=== PATIENT | female | born 1935 | race Caucasian/White ===

== ENCOUNTER → 2020-04-08 09:59 | Outpatient (CLI) | payer MEDICARE, SELFPAY ==
--- NOTE | ~2020-04-08 | MM_ITS ---
EXAMINATION: MM screening vianca BI w davonte HISTORY: Screening mammogram, history of right breast cancer TECHNIQUE: Craniocaudal and mediolateral oblique 3-D tomosynthesis images were obtained and synthetic 2-D images were generated. CAD analysis was submitted and interpreted. COMPARISON: 04/07/2019, 04/05/2018, 04/02/2017 BREAST PARENCHYMAL COMPOSITION: The breasts are almost entirely fatty. FINDINGS: There are stable lumpectomy changes in the right breast. There is no evidence of suspicious mass, calcification, or architectural distortion to suggest malignancy in either breast. There has b een no suspicious interval change. IMPRESSION: 1. No mammographic evidence of malignancy. 2. Recommend routine screening mammography while the patient remains in good health. BI-RADS Category 2: Benign finding(s). Reviewed, dictated and finalized at location A. IMPRESSION: 1. No mammographic evidence of malignancy. 2. Recommend routine screening mammography while the patient remains in good he alth. BI-RADS Category 2: Benign finding(s).
== END ==
PROVIDERS: PCP Family Medicine; Visit Provider Internal Medicine Hematology & Oncology
DX: Z12.31 Encounter for screening mammogram for malignant neoplasm of breast (principal)
CPT/HCPCS: 77063; 77067

== ENCOUNTER 2020-11-08 09:05 | Emergency (ER) | payer MEDICARE, SELFPAY ==
[2020-11-08] VITALS (10 sets, daily range): BP systolic 139; BP diastolic 90–106; PULSE 57–72; RESP 9–19; O2SAT 94–99
--- NOTE | ~2020-11-08 | CT_ITS ---
EXAMINATION: CT brain wo con DATE: 11/08/2020 10:12 INDICATION: Syncope, dizziness, left frontal scalp hematoma and posterior scalp laceration post fall with head injury. TECHNIQUE: Computed tomography (CT) of the head was performed without intravenous contrast. Sagittal and coronal reconstructions were performed. The mA was adjusted according to patient size. Iterative reconstruction technique was employed. The dose-length product was 605.33 mGy-cm. COMPARISON: Brain MR dated 09/11/2014 FINDINGS: Prominent scalp hematomas in the left frontal region as well as in the right parietal region, the lat ter with associated scalp laceration. No fracture. No acute intracranial hemorrhage, acute infarction or abnormal extra axial fluid collection. Symmetric prominence of the sulci and ventricles consisten t with moderate age-appropriate diffuse cerebral volume loss. No mass/mass effect. Changes of bilater al intraocular lens replacement. The orbits, paranasal sinuses and mastoid air cells are normal. Intr acranial calcified cerebral atherosclerosis is noted. IMPRESSION: 1. Left frontal and right parietal scalp hematomas with right parietal scalp laceration. No fracture or acute intracranial process. 2. Age-related changes including moderate diffuse volume loss with mild scattered white matter hypoat tenuation consistent with chronic small vessel ischemic disease. Reviewed, dictated and finalized at location A. IMPRESSION: 1. Left frontal and right parietal scalp hematomas with right parietal scalp la ceration. No fracture or acute intracranial process. 2. Age-related changes including moderate diffuse volume loss with mild scatter ed white matter hypoattenuation consistent with chronic small vessel ischemic d isease.
--- NOTE | ~2020-11-08 | CT_ITS ---
EXAMINATION: CT cervical spine wo con DATE: 11/08/2020 10:13 INDICATION: Head injury. TECHNIQUE: Computed tomography (CT) of the cervical spine was performed without intravenous contrast. Automated exposure control and iterative reconstruction technique were employed. The dose-length pro duct was 98.77 mGy-cm. COMPARISON: None FINDINGS: There is 7 degrees dextrocurvature of cervical spine. Vertebral body heights are normal. Th ere is mildly decreased disc height at C5-C6. The following disc levels are specifically discussed: C2-C3: There is no uncovertebral joint osteoarthritis. There is severe right and moderate left facet joint osteoarthritis. There is no neural foraminal stenosis. There is no central canal stenosis. C3-C4: There is no uncovertebral joint osteoarthritis. There is mild right and severe left facet join t osteoarthritis. There is no neural foraminal stenosis. There is no central canal stenosis. C4-C5: There is mild left uncovertebral joint osteoarthritis. There is moderate and mild left facet j oint osteoarthritis. There is no neural foraminal stenosis. There is no central canal stenosis. C5-C6: There is mild bilateral uncovertebral joint osteoarthritis. There is mild bilateral facet join t osteoarthritis. There is no neural foraminal stenosis. There is no central canal stenosis. C6-C7: There is no uncovertebral joint osteoarthritis. There is mild bilateral facet joint osteoarthr itis. There is no neural foraminal stenosis. There is no central canal stenosis. C7-T1: There is no uncovertebral joint osteoarthritis. There is mild right and moderate left facet parker int osteoarthritis. There is no neural foraminal stenosis. There is no central canal stenosis. IMPRESSION: 1. No fracture. 2. Mild cervical spondylosis. Reviewed, dictated and finalized at location A.
--- NOTE | ~2020-11-08 | XR_ITS ---
EXAMINATION: XR ankle LT min 3V DATE: 11/08/2020 11:14 INDICATION: Postreduction left ankle fracture TECHNIQUE: Anteroposterior, oblique, mortise, and lateral views of the affected ankle were obtained. COMPARISON: None. FINDINGS: Interval reduction to near anatomic alignment of the previous noted distal metadiaphyseal fracture of the left fibula and oblique intra-articular fracture of the distal left tibia. Suggestion of a coupl e millimeter residual step-off along the articular cortex of the tibial plafond. There is widening of the anterior tibiotalar joint space. No other fractures identified. Remaining profile joint spaces a ppear relatively preserved. Moderate-sized Achilles and plantar calcaneal spurs. Fiberglas splinting material extending from the posterior lower leg across the heel and along the plantar aspect of the f oot. IMPRESSION: 1. Reduction to near-anatomic alignment of distal left tibial and fibular fractures Reviewed, dictated and finalized at location A. IMPRESSION: 1. Reduction to near-anatomic alignment of distal left tibial and fibular fract ures
--- NOTE | ~2020-11-08 | XR_ITS ---
EXAMINATION: XR ankle LT min 3V DATE: 11/08/2020 10:15 INDICATION: Left ankle pain. Fall. TECHNIQUE: 3 views of left ankle were obtained. COMPARISON: None. FINDINGS: There is a transverse fracture of distal fibula 17 mm proximal to the level of the tibial c omponent. The distal fracture fragment demonstrates 47 degrees medial angulation. There is a comminut ed fracture of distal tibia involving the tibial plafond. The main distal fracture fragment demonstra angelito 30 degrees medial angulation and shortening. Other joint spaces are normal. There are enthesophyt es at the posterior and plantar aspects of calcaneal tuberosity. IMPRESSION: 1. Fractures of distal tibia and fibula. Reviewed, dictated and finalized at location A.
--- NOTE | 2020-11-08 09:15 | ECG_ITS ---
Measurements Intervals [place] Rate: 64 P: 17 [place]: 261 QRS: 26 QRSD: 90 T: 18 QT: 416 QTc: 432 Interpretive Statements SINUS RHYTHM WITH FIRST DEGREE AV BLOCK BASELINE ARTIFACT- I, II, III, AVR, AVF, V2-V6 ABNORMAL ECG Electronically Signed On 11-08-2020 10:35:39 CDT by Duc Joaquin D.O.
[2020-11-08] MEDS: MORPHINE SULFATE (*CRX) 4 MG/ML INJ IV PUSH (09:36)
[2020-11-08 09:55] LABS: Basophils Absolute Auto 0.1 K/mm3 (0.0-0.1); Basophils Percent Auto 0.5 % (0.2-1.2); Eosinophils Absolute Auto 0.3 K/mm3 (0-0.3); Eosinophils Percent Auto 2.5 % (0-4.4); Hematocrit 27.2 % (37.0-47.0); Hemoglobin 8.6 g/dL (12.0-15.0); Immature Granulocyte Absolute 0.04 K/mm3 (0.00-0.031); Immature Granulocyte Percent A 0.3 % (0-0.5); Lymphocytes Absolute Auto 2.25 K/mm3 (0.9-3.2); Lymphocytes Percent Auto 19.1 % (18.3-44.2); Mean Corpuscular HGB Conc 31.6 g/dl (32-36); Mean Corpuscular Hemoglobin 27.4 pg (26-34); Mean Corpuscular Volume 86.6 fl (80-100); Mean Platelet Volume 11.5 fl (7.4-10.4); Monocytes Absolute Auto 0.7 K/mm3 (0.1-0.6); Monocytes Percent Auto 5.7 % (2.6-8.5); Neutrophils Absolute Auto 8.5 K/mm3 (1.3-6.7); Neutrophils Percent Auto 71.9 % (45.5-73.1); Platelet Count Result 221 k/mm3 (150-375); Red Blood Count 3.14 M/mm3 (4.2-5.4); Red Cell Distribution Width 19.9 % (11.5-14.5); White Blood Count 11.8 K/mm3 (4.5-10.0)
--- NOTE | 2020-11-08 09:57 | ED.FALL ---
HPI - Fall General Chief Complaint: Fall Stated Complaint: FALL/SYNCOPE/L ANKLE INJURY Time Seen by Provider: 11/08/20 09:57 Source: patient, EMS and RN notes reviewed Mode of arrival: EMS Limitations: no limitations History of Present Illness HPI Narrative: Patient is 84 years old white female lives alone, was going downstairs, lost her balance or and fell, unknown number of steps. No loss of consciousness. Complaining of severe pain left ankle. Patient denies other injuries. History of breast cancer stage I, patient on aspirin. Been vaccinated for COVID-19. Denies any fever, chills, nausea, vomiting, chest pain, shortness of breath, back pain or abdominal pain. Related Data Home Medications Medication Instructions Recorded Confirmed aspirin 81 mg tablet,delayed 81 mg PO DAILY 05/31/19 10/25/20 release ferrous sulfate 325 mg (65 mg 325 mg PO DAILY 05/31/19 10/25/20 iron) tablet furosemide 20 mg tablet 20 mg PO EVERY OTHER DAY 05/31/19 10/25/20 gabapentin 300 mg capsule 300 mg PO DAILY 05/31/19 10/25/20 insulin NPH-regular 70-30 U-100 20 unit SUB-Q BID 05/31/19 10/25/20 insulin 100 unit/mL subcutaneous pen insulin lispro 100 unit/mL 1 unit SUB-Q ONCE 05/31/19 10/25/20 subcutaneous pen multivitamin 1 tablet PO DAILY 05/31/19 10/25/20 potassium chloride 10 mEq 10 meq PO EVERY OTHER DAY 05/31/19 10/25/20 tablet,extended release pravastatin 40 mg tablet 40 mg PO DAILY 05/31/19 10/25/20 verapamil 120 mg tablet,extended 120 mg PO DAILY 05/31/19 10/25/20 release metoprolol succinate 25 mg PO DAILY 07/05/20 10/25/20 Allergies Allergy/AdvReac Type Severity Reaction Status Date / Time No Known Allergies Allergy Verified 10/25/20 09:21 Review of Systems Review of Systems: Narrative: CONSTITUTIONAL: Denies fever, chills, or sweats. EYES: Denies visual changes, redness, or discharge. ENT: Denies rhinorrhea, congestion, sore throat, or otalgia. CARDIOVASCULAR: Denies chest pain, palpitations, or edema. RESPIRATORY: Denies cough or dyspnea. GASTROINTESTINAL: Denies abdominal pain, nausea, vomiting, or diarrhea. GENITOURINARY: Denies dysuria or hematuria. SKIN: Denies rash or itching. MUSCULOSKELETAL: Denies back pain, joint pain, or myalgia. NEUROLOGIC: Denies headache, numbness, or weakness. PSYCHIATRIC: Denies anxiety or depression. PMFSH Past Medical History Medical History Anemia Chronic emphysema syndrome Essential (primary) hypertension Hx of breast cancer Hypokalemia DAVID (obstructive sleep apnea) Osteopenia PAD (peripheral artery disease) Renovascular hypertension Surgical History Surgical History History of carotid endarterectomy Family History Family History Mother Family history of diabetes mellitus in first degree relative Family history of malignant neoplasm of uterus, Onset Age: 48 Hypertension, Onset Age: 92 Family history of malignant neoplasm of ovary Diabetes mellitus, Onset Age: 92 Family history of cardiovascular disease, Onset Age: 92 Father Family history of heart disease in male family member before age 55 Hypertension, Onset Age: 75 Family history of cardiovascular disease, Onset Age: 75 Sibling Diabetes mellitus Other Family history of malignant neoplasm of male breast Social History Social History Smoking status: Never smoker Alcohol intake: never Gender identity (if verbalized by the patient): Female Spiritual care concerns: No Exam Narrative: Exam Narrative: General appearance: Well-developed, well-nourished Skin: Normal color Head: Left forehead hematoma, right parietal hematoma and abrasion, no clear laceration, Eyes: Clear conjunctiva ENT: Oropharynx normal, ears normal, nose normal Neck: Supple, nontender
[2020-11-08] MEDS: ONDANSETRON INJ 4 MG/2 ML VIAL (09:58)
[2020-11-08 10:05] LABS: Partial Thromboplastin Time 21.7 SECONDS (22.3-36.8)
--- NOTE | 2020-11-08 10:30 | PC.NURSE ---
Verbal orders received from Dr. Caban to discontinue C-Collar.
[2020-11-08 10:37] LABS: Add Urine Microscopic? NO; Appearance Urine Clear (Clear); Bilirubin Urine Negative (Negative); Blood Urine Negative (Negative); Color Urine Straw (Yellow); Glucose Urine UA Negative (Negative); Ketones Urine Negative (Negative); Leukocyte Esterase Ur Negative LEU/UL (Negative); Nitrate Urine Negative (Negative); Protein Urine Negative (Negative); Urobilinogen Urine Negative mg/dL (<2.0)
[2020-11-08 11:12] LABS: Alanine Aminotransferase 13 U/L (4-35); Albumin Level 3.3 g/dL (3.5-5.1); Alkaline Phosphatase 48 U/L (38-126); Anion Gap 6 mmol/L (8-16); Aspartate Amino Transferase 36 U/L (14-36); Bilirubin,Total 0.7 mg/dL (0.2-1.3); Blood Urea Nitrogen 31 mg/dL (7-17); Carbon Dioxide 26 mmol/L (22-30); Chloride 110 mmol/L (98-107); Estimated CRCL calculation 25 ml/min; Estimated Glomerular Filt Rate 29; Glucose 165 mg/dL (65-105); Potassium 4.5 mmol/L (3.4-5.0); Sodium 142 mmol/L (137-145)
[2020-11-08] MEDS: TETANUS,DIPHTHERIA,AC PERTUSSIS ADULT (0.5 ML) BOOSTRIX IM (11:37)
== END 2020-11-08 12:35 | disposition short-term general hospital (02) ==
PROVIDERS: Emergency Provider Emergency Medicine; PCP Family Medicine
DX: S82.872A Displaced pilon fracture of left tibia, initial encounter for closed fracture (principal); S82.832A Other fracture of upper and lower end of left fibula, initial encounter for closed fracture; S00.03XA Contusion of scalp, initial encounter; S01.01XA Laceration without foreign body of scalp, initial encounter; Z23 Encounter for immunization; J43.9 Emphysema, unspecified; I10 Essential (primary) hypertension; G47.33 Obstructive sleep apnea (adult) (pediatric); M85.80 Other specified disorders of bone density and structure, unspecified site; I73.9 Peripheral vascular disease, unspecified; Z85.3 Personal history of malignant neoplasm of breast; Z79.82 Long term (current) use of aspirin; Z79.4 Long term (current) use of insulin; M47.812 Spondylosis without myelopathy or radiculopathy, cervical region; I44.0 Atrioventricular block, first degree; W10.9XXA Fall (on) (from) unspecified stairs and steps, initial encounter
CPT/HCPCS: 27788; 27825; 29515; 36415; 70450; 72125; 73610; 80053; 81003; 85025; 85730; 90471; 90715; 93005; 96374; 96375; 99285; J2270; J2405

== ENCOUNTER 2020-12-02 07:27 | Emergency (ER) | payer MEDICARE, SELFPAY ==
[2020-12-02] VITALS (17 sets, daily range): BP systolic 146–194; BP diastolic 51–128; PULSE 77–96; RESP 20–26; O2SAT 91–100
--- NOTE | ~2020-12-02 | CT_ITS ---
EXAMINATION: CT brain wo con DATE: 12/02/2020 07:34 INDICATION: Found unresponsive TECHNIQUE: Computed tomography (CT) of the head was performed without intravenous contrast. Sagittal and coronal reconstructions were performed. The mA was adjusted according to patient size. Iterative reconstruction technique was employed. The dose-length product was 681.00 mGy-cm. COMPARISON: head CT dated 11/08/2020 FINDINGS: No acute intracranial hemorrhage, acute infarction or abnormal extra axial fluid collection. There is mild scattered white matter hypoattenuation consistent with chronic small vessel ischemic disease. S ymmetric prominence of the sulci and ventricles consistent with moderate age-appropriate diffuse cere bral volume loss. No mass/mass effect. The orbits, paranasal sinuses and mastoid air cells are normal . IMPRESSION: 1. No acute intracranial process. 2. Stable appearance of age-related changes including moderate diffuse volume loss and mild scattered white matter hypoattenuation consistent with chronic small vessel ischemic disease. Reviewed, dictated and finalized at location A. IMPRESSION: 1. No acute intracranial process. 2. Stable appearance of age-related changes including moderate diffuse volume l oss and mild scattered white matter hypoattenuation consistent with chronic sma ll vessel ischemic disease.
--- NOTE | ~2020-12-02 | XR_ITS ---
EXAMINATION: XR chest 1V portable INDICATION: Altered mental status TECHNIQUE: Portable AP chest at 0754 hours COMPARISON: 09/12/2015 FINDINGS: The lungs are free of acute opacities. There is no pleural effusion or pneumothorax. The ca rdiomediastinal silhouette is normal. IMPRESSION: 1. No acute cardiopulmonary abnormality. Reviewed, dictated and finalized at location A.
--- NOTE | ~2020-12-02 | CT_ITS ---
EXAMINATION: CTA BRAIN/CAROTID DATE: 12/02/2020 08:04 INDICATION: Stroke, found unresponsive with right-sided hemiparesis. TECHNIQUE: Computed tomographic angiography (CTA) of the head and neck was performed with 100 mL Omni paque-350 intravenous contrast. Multiplanar reconstructions and maximum intensity projection 3D-recon structions of the carotid arteries and of the intracranial arteries were created by the technologist on a separate workstation. Automated exposure control and iterative reconstruction technique were emp loyed.The dose-length product was 996.91 mGy-cm. COMPARISON: Head CT dated 12/02/2020, brain MRI and MRA dated 09/11/2014 FINDINGS: Carotid arteries: There is 50% stenosis of the right carotid bulb relative to normal distal artery lumen diameter (NASC ET criteria). There is 0% stenosis of the left carotid bulb relative to normal distal artery lumen di ameter. Mild dependent atelectasis in the bilateral upper lobes and superior segment of the left lowe r lobe. Cervical soft tissues are unremarkable. Exaggerated cervical lordosis. Intracranial arteries 60% stenosis in the supraclinoid left intracranial internal carotid artery. 40% stenosis in the supra clinoid right intracranial internal carotid artery. There is no hemodynamically significant stenosis in the vertebral or basilar arteries. Vertebral arteries are codominant. There are no aneurysms ident ified. Both A1 and the right P1 segments are patent. The right posterior cerebral artery is supplied via the left internal carotid artery and a patent left posterior communicating artery. Cerebral manish rial arborization appears symmetric. Age-related changes including bleeding during moderate diffuse v olume loss and mild scattered white matter hypoattenuation consistent with chronic small vessel ische sofie disease. No evident acute infarction or abnormal enhancing brain lesions. Changes of bilateral in traocular lens replacement. IMPRESSION: 1. 50% stenosis of the right carotid bulb relative to normal distal artery lumen diameter (NASCET cri teria). 2. 0% stenosis of the left carotid bulb relative to normal distal artery lumen diameter. 3. 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 Reviewed, dictated and finalized at location A. IMPRESSION: 1. 50% stenosis of the right carotid bulb relative to normal distal artery lume n diameter (NASCET criteria). 2. 0% stenosis of the left carotid bulb relative to normal distal artery lumen diameter. 3. Stenosis in the bilateral supraclinoid intracranial internal carotid arterie s measuring 60% on the right and 40% on the left.
--- NOTE | 2020-12-02 07:36 | ED.NEUROSD ---
HPI - Neuro Symptoms/Deficit General Chief Complaint: Suspected CVA Stated Complaint: R sided weakness, unresponsive History of Present Illness HPI Narrative: History is extremely limited by medical condition. Story varies somewhat between sources. 84 yo female presents from care home where she was receiving rehab folllowing a RLE fracture. She was last known well at 6:30 AM today. About 20-30 minutes later she was found either unresponsive or with a right facial droop. She appears somewhat alert. She has right sided neglect. She is only following commands with the right foot. She seems to have complete expressive aphasia. Med list shows that she is on plavix, no other blood thinners. Related Data Home Medications Medication Instructions Recorded Confirmed aspirin 81 mg tablet,delayed 81 mg PO DAILY 05/31/19 10/25/20 release ferrous sulfate 325 mg (65 mg 325 mg PO DAILY 05/31/19 10/25/20 iron) tablet furosemide 20 mg tablet 20 mg PO EVERY OTHER DAY 05/31/19 10/25/20 gabapentin 300 mg capsule 300 mg PO DAILY 05/31/19 10/25/20 insulin NPH-regular 70-30 U-100 20 unit SUB-Q BID 05/31/19 10/25/20 insulin 100 unit/mL subcutaneous pen insulin lispro 100 unit/mL 1 unit SUB-Q ONCE 05/31/19 10/25/20 subcutaneous pen multivitamin 1 tablet PO DAILY 05/31/19 10/25/20 potassium chloride 10 mEq 10 meq PO EVERY OTHER DAY 05/31/19 10/25/20 tablet,extended release pravastatin 40 mg tablet 40 mg PO DAILY 05/31/19 10/25/20 verapamil 120 mg tablet,extended 120 mg PO DAILY 05/31/19 10/25/20 release metoprolol succinate 25 mg PO DAILY 07/05/20 10/25/20 Allergies Allergy/AdvReac Type Severity Reaction Status Date / Time No Known Allergies Allergy Verified 10/25/20 09:21 Review of Systems Review of Systems: ROS unobtainable: Yes unobtainable due to mental status PMFSH Past Medical History Medical History Anemia Chronic emphysema syndrome Essential (primary) hypertension Hx of breast cancer Hypokalemia DAVID (obstructive sleep apnea) Osteopenia PAD (peripheral artery disease) Renovascular hypertension Surgical History Surgical History History of carotid endarterectomy Family History Family History Mother Family history of diabetes mellitus in first degree relative Family history of malignant neoplasm of uterus, Onset Age: 48 Hypertension, Onset Age: 92 Family history of malignant neoplasm of ovary Diabetes mellitus, Onset Age: 92 Family history of cardiovascular disease, Onset Age: 92 Father Family history of heart disease in male family member before age 55 Hypertension, Onset Age: 75 Family history of cardiovascular disease, Onset Age: 75 Sibling Diabetes mellitus Other Family history of malignant neoplasm of male breast Social History Social History Smoking status: Never smoker Alcohol intake: never Gender identity (if verbalized by the patient): Female Spiritual care concerns: No Exam Const: General: alert Nutritional Appearance: average body habitus Other: moderate distress HENMT: Other: healing bruises to left forehead Eyes: Eyelids: eyelids normal Other: left gaze deviation Neck: Neck: normal visual inspection Resp: Effort & Inspection: normal respiratory effort Auscultation: clear to auscultation bilaterally Cardio: Rate: regular rate Rhythm: regular rhythm GI: Inspection: normal to inspection GI Palp: Yes Soft to palpation Skin: General skin exam: normal color Other: scatter bruising in multiple areas Neuro: Cranial nerves: Yes Equal, round and reactive pupils present Cognition (Neuro): abnormal cognition Gait exam (Neuro): Unable to assess gait Other: Right neglect. 0/5 strength except right foot where it
[2020-12-02 07:44] LABS: Glucose Point of Care 176 mg/dl (65-105)
--- NOTE | 2020-12-02 07:44 | ECG_ITS ---
Measurements Intervals [place] Rate: 94 P: 47 TX: 179 QRS: 30 QRSD: 86 T: 67 QT: 365 QTc: 457 Interpretive Statements SINUS RHYTHM NORMAL ECG Electronically Signed On 12-02-2020 9:02:48 CDT by Duc Joaquin D.O.
--- NOTE | 2020-12-02 07:59 | PC.NURSE ---
Addendum entered by Ary Washington RN 12/02/20 08:18: check on pt and found her sitting in her chair unresponsive. LKN 0630. Nurse reports pt is A&O x4 at baseline with no known weakness/deficits. Spoke with pt's emergency contact, Harika (step daughter). Harika states she is the only family of the patient and she believes that pt would like all treatment possible. Discussed possible TPA administration along with risks. Harika states TPA should be given if pt is a candidate for administration. Original Note: Spoke with [facility] staff. Per nurse, pt was awake sitting in her chair washing her face at 0630 this morning. Nurse reports staff went into room shortly after to
--- NOTE | 2020-12-02 08:01 | PC.NURSE ---
pt unable to participate in NIH stroke scale because pt is unresponsive at this time.
[2020-12-02] MEDS: SODIUM CHLORIDE 0.9% IV 1,000 ML 999 ML IV CONT (08:09)
[2020-12-02] MEDS: LABETALOL HCL INJ 100 MG/20 ML VIAL 10 MG IV PUSH (08:10)
--- NOTE | 2020-12-02 08:10 | PC.NURSE ---
[facility] accepted transfer to [facility] ETa [id number] Trip#[id number]
--- NOTE | 2020-12-02 08:18 | PC.NURSE ---
Spoke with step-daughter, Harika Munson , she agreed to TPA for pt - explained risks & benefits of TPA medication to Harika - Also told her pt will be transferred to [facility] - ER.
[2020-12-02 08:20] LABS: Basophils Absolute Auto 0.1 K/mm3 (0.0-0.1); Basophils Percent Auto 0.6 % (0.2-1.2); Eosinophils Absolute Auto 0.3 K/mm3 (0-0.3); Hematocrit 28.3 % (37.0-47.0); Hemoglobin 8.5 g/dL (12.0-15.0); Immature Granulocyte Absolute 0.05 K/mm3 (0.00-0.031); Immature Granulocyte Percent A 0.5 % (0-0.5); Lymphocytes Absolute Auto 1.54 K/mm3 (0.9-3.2); Lymphocytes Percent Auto 14.8 % (18.3-44.2); Mean Corpuscular Hemoglobin 26.6 pg (26-34); Mean Corpuscular Volume 88.7 fl (80-100); Mean Platelet Volume 11.7 fl (7.4-10.4); Monocytes Percent Auto 9.2 % (2.6-8.5); Neutrophils Absolute Auto 7.5 K/mm3 (1.3-6.7); Neutrophils Percent Auto 71.9 % (45.5-73.1); Platelet Count Result 347 k/mm3 (150-375); Red Blood Count 3.19 M/mm3 (4.2-5.4); Red Cell Distribution Width 18.2 % (11.5-14.5); White Blood Count 10.4 K/mm3 (4.5-10.0)
[2020-12-02 08:30] LABS: INR 1.1; Partial Thromboplastin Time 32.1 SECONDS (22.3-36.8); Prothrombin Time 14.4 Seconds (11.1-14.7)
--- NOTE | 2020-12-02 08:35 | PC.NURSE ---
Pt is now able to resist when nurse attempting to raise right arm. Is able to hold left arm up. States her name with garbled speech.
--- NOTE | 2020-12-02 08:51 | PC.NURSE ---
Is able to speak clearly. Follows commands and moves all extremities on command.
[2020-12-02 08:57] LABS: Alanine Aminotransferase 36 U/L (4-35); Albumin Level 3.7 g/dL (3.5-5.1); Alkaline Phosphatase 146 U/L (38-126); Anion Gap 9 mmol/L (8-16); Aspartate Amino Transferase 50 U/L (14-36); Bilirubin,Total 0.8 mg/dL (0.2-1.3); Blood Urea Nitrogen 45 mg/dL (7-17); Calcium 9.2 mg/dL (8.4-10.2); Carbon Dioxide 25 mmol/L (22-30); Chloride 105 mmol/L (98-107); Estimated Glomerular Filt Rate 20; Glucose 176 mg/dL (65-105); Sodium 139 mmol/L (137-145)
--- NOTE | 2020-12-02 08:58 | PC.NURSE ---
Per Dr Craven Transfer going light/sirens to [facility] by [facility] ETA 10min Trip#[phone]
== END 2020-12-02 09:14 | disposition short-term general hospital (02) ==
PROVIDERS: Emergency Provider Emergency Medicine; PCP Family Medicine
DX: I63.512 Cerebral infarction due to unspecified occlusion or stenosis of left middle cerebral artery (principal); R29.733 NIHSS score 33; D64.9 Anemia, unspecified; I10 Essential (primary) hypertension; G47.33 Obstructive sleep apnea (adult) (pediatric); M85.80 Other specified disorders of bone density and structure, unspecified site; I73.9 Peripheral vascular disease, unspecified; J43.9 Emphysema, unspecified; Z85.3 Personal history of malignant neoplasm of breast; Z79.4 Long term (current) use of insulin; Z79.82 Long term (current) use of aspirin; Z79.02 Long term (current) use of antithrombotics/antiplatelets
CPT/HCPCS: 36415; 37195; 70450; 70496; 70498; 71045; 80053; 82948; 84484; 85025; 85610; 85730; 86850; 86900; 86901; 93005; 96374; 99285; J2997; J7030; Q9967

== ENCOUNTER 2021-03-08 07:55 | Emergency (ER) | payer MEDICARE, SELFPAY ==
[2021-03-08] VITALS (16 sets, daily range): BP systolic 147–179; BP diastolic 51–77; PULSE 78–88; RESP 11–20; TEMP 36.6–36.7; O2SAT 90–100
--- NOTE | ~2021-03-08 | XR_ITS ---
EXAMINATION: XR chest 1V EXAM DATE: 03/08/2021 08:27 INDICATION: Altered mental status. TECHNIQUE: Portable AP frontal chest x-ray was obtained. Comparison is made to prior examination from 03/04/2021. FINDINGS: The lungs are clear. There are no pleural effusions. The cardiomediastinal silhouette is within normal limits. There is no pneumothorax suspected. The bones and soft tissues are unremarkab le. IMPRESSION: No acute cardiopulmonary findings. Reviewed, dictated and finalized at location A.
--- NOTE | ~2021-03-08 | CT_ITS ---
EXAMINATION: CTA brain carotid EXAM DATE: 03/08/2021 10:01 INDICATION: Altered mental status. TECHNIQUE: Noncontrast head CT. Spiral CTA of the carotid arteries was performed with intravenous i njection 100 cc of Omnipaque 350. Axial, coronal, sagittal reformatted images reviewed. Additional r eformatted images created on dedicated 3-D workstation. NASCET comparable standard used to assess th e degree of arterial stenosis. Spiral CT angiogram cerebral arteries performed with the same intrave nous injection of contrast. Source images of the brain CTA transferred to dedicated workstation for 3 -D rotational image creation. Coronal, sagittal maximum intensity pixel images also reviewed. The d ose-length product (DLP) for this examination was 947.58 mGy-cm. The exposure was tailored accordin g to patient size, and iterative reconstruction (ASIR) was used as additional dose reduction techniqu e. Comparison is made to prior examination from 12/02/2020. FINDINGS: Again there is 50% stenosis of the right carotid bulb from arterial sclerosis, minimal left carotid arterial sclerosis with 0% stenosis. The vertebral arteries are codominant. 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 There is left-sided posterior communicating artery do minant posterior cerebral artery. Again there is moderate to large amount of concentric bilateral i ntracranial ICA arteriosclerosis with approximately 60% stenosis suspected in the left supraclinoid s egment and 40% on the right. There is no carotid or vertebral basilar arterial dissection or fibromuscular dysplasia. There are no cerebral artery aneurysms. There is symmetric cerebral artery arborization. The sagittal, transverse and sigmoid sinuses enhance normally, no venous sinus thrombosis. Internal cerebral veins also enhan ce normally. There is no acute intraparenchymal hemorrhage. Microangiopathy and atrophy. Punctate old left thalami c and right cerebellar infarctions. No evidence of intraparenchymal brain mass lesion. Interval devel opment of small left parietal lobe cortical infarction. There is no mass effect or midline shift. The re is no obstructive hydrocephalus suspected. There are no extra-axial collections. Cataract surger y. IMPRESSION: 1. Subacute left parietal lobe small infarction. 2. Right carotid bulb 50% stenosis, supraclinoid ICA 40% stenosis. 3. Left carotid bulb 0% stenosis, supraclinoid 60% stenosis. Reviewed, dictated and finalized at location A.
--- NOTE | ~2021-03-08 | CT_ITS ---
EXAMINATION: CT brain wo con EXAM DATE: 03/08/2021 08:27 INDICATION: Altered mental status. TECHNIQUE: Spiral CT of the head was performed without contrast. Axial, coronal and sagittal images were reviewed. The dose-length product (DLP) for this examination was 681.00 mGy-cm. The exposure w as tailored according to patient size, and iterative reconstruction (ASIR) was used as additional dos e reduction technique. Comparison is made to prior examination from 03/04/2021, including CT angiogram . FINDINGS: Compared to 4 days ago, interval development of small left parietal lobe infarction. There is no significant interval change. There is no acute intraparenchymal hemorrhage. No evidence of int raparenchymal brain mass lesion. No evidence of acute infarction. Please note that initial head CT has limited sensitivity for small or acute infarctions. Punctate old left thalamic and right cerebel lar infarctions. There is moderate periventricular and subcortical hypodensity, nonspecific but proba joseph related to small vessel ischemic disease. There is moderate prominence of the sulci and ventric les related to cerebral atrophy. There is intracranial carotid arteriosclerosis. There are no extr a-axial collections. There is no mass effect or midline shift. Patient has had bilateral ocular capo s surgery. Soft tissue is unremarkable. The visualized sinuses and mastoid air cells are well aerat ed. IMPRESSION: 1. Interval development small subacute left parietal lobe cortical infarction. 2. Old punctate infarctions. 3. Chronic age related findings. Reviewed, dictated and finalized at location A.
--- NOTE | 2021-03-08 08:06 | ECG_ITS ---
Measurements Intervals [place] Rate: 80 P: 2 [place]: 200 QRS: 9 QRSD: 90 T: -3 QT: 396 QTc: 459 Interpretive Statements SINUS RHYTHM BORDERLINE AV CONDUCTION DELAY EARLY PRECORDIAL R/S TRANSITION BORDERLINE T WAVE ABNORMALITY- INFERIOR LEADS BASELINE ARTIFACT- I, II, III, AVR, AVL, AVF, V1-V6 BORDERLINE ECG Electronically Signed On 03-08-2021 14:17:19 CDT by Duc Joqauin D.O.
[2021-03-08 09:08] LABS: Basophils Absolute Auto 0.1 K/mm3 (0.0-0.1); Basophils Percent Auto 0.7 % (0.2-1.2); Eosinophils Absolute Auto 0.3 K/mm3 (0-0.3); Eosinophils Percent Auto 2.2 % (0-4.4); Hematocrit 33.2 % (37.0-47.0); Hemoglobin 10.5 g/dL (12.0-15.0); Immature Granulocyte Absolute 0.06 K/mm3 (0.00-0.031); Immature Granulocyte Percent A 0.5 % (0-0.5); Lymphocytes Absolute Auto 2.22 K/mm3 (0.9-3.2); Lymphocytes Percent Auto 17.9 % (18.3-44.2); Mean Corpuscular HGB Conc 31.6 g/dl (32-36); Mean Corpuscular Hemoglobin 27.1 pg (26-34); Mean Corpuscular Volume 85.8 fl (80-100); Mean Platelet Volume 10.7 fl (7.4-10.4); Monocytes Absolute Auto 0.8 K/mm3 (0.1-0.6); Monocytes Percent Auto 6.6 % (2.6-8.5); Neutrophils Percent Auto 72.1 % (45.5-73.1); Nucleated Red Blood Cells Perc 0.2 % (0.0-0.2); Platelet Count Result 434 k/mm3 (150-375); Red Blood Count 3.87 M/mm3 (4.2-5.4); Red Cell Distribution Width 19.9 % (11.5-14.5); White Blood Count 12.4 K/mm3 (4.5-10.0)
[2021-03-08 09:20] LABS: Alanine Aminotransferase 11 U/L (4-35); Alkaline Phosphatase 121 U/L (38-126); Anion Gap 6 mmol/L (8-16); Aspartate Amino Transferase 21 U/L (14-36); Bilirubin,Total 0.7 mg/dL (0.2-1.3); Blood Urea Nitrogen 16 mg/dL (7-17); Calcium 9.4 mg/dL (8.4-10.2); Carbon Dioxide 31 mmol/L (22-30); Chloride 101 mmol/L (98-107); Estimated CRCL calculation 26 ml/min; Estimated Glomerular Filt Rate 39; Glucose 108 mg/dL (65-110); Potassium 4.3 mmol/L (3.4-5.0); Sodium 138 mmol/L (137-145)
[2021-03-08 09:35] LABS: Add Urine Microscopic? YES; Appearance Urine Cloudy (Clear); Bacteria Urine Trace /hpf; Bilirubin Urine Negative (Negative); Color Urine Yellow (Yellow); Glucose Urine UA Negative (Negative); Ketones Urine Negative (Negative); Leukocyte Esterase Ur 3+ LEU/UL (Negative); Mucus Urine Rare /lpf; Nitrate Urine Negative (Negative); Protein Urine 1+ mg/dL (Negative); Specific Grav Ur 1.017 (1.001-1.035); Squamous Epithelial Cell Urine Occasional /hpf (Few); Urobilinogen Urine Negative mg/dL (<2.0); WBC Urine >75 /hpf
[2021-03-08 09:42] LABS: Blood Urine Negative (Negative)
--- NOTE | 2021-03-08 11:33 | ED.AMS ---
HPI - Altered Mental Status General Chief Complaint: Altered Mental Status Stated Complaint: unresponsive Time Seen by Provider: 03/08/21 08:03 Source: patient, family, EMS and old records reviewed History of Present Illness HPI narrative: Patient presented from nursing facility with altered mental status. Last time she was seen normal was last night this morning she seemed less responsive so was referred to the ER for evaluation. Patient has a history of recent CVA, diabetes and anemia. Still reports she was in her usual state of health yesterday deny recent fevers. Related Data Home Medications Medication Instructions Recorded Confirmed ferrous sulfate 325 mg (65 mg 325 mg PO DAILY 05/31/19 10/25/20 iron) tablet verapamil 120 mg tablet,extended 40 mg PO DAILY 05/31/19 10/25/20 release Lantus Solostar U-100 Insulin 10 units SUBCUT BID 03/08/21 Proventil HFA 2 puff INHALATION Q4-6H PRN 03/08/21 Zinc 50 mg PO DAILY 03/08/21 ascorbic acid (vitamin C) 500 mg PO DAILY 03/08/21 collagenase clostridium histo. TOPICAL 03/08/21 [Santyl] pantoprazole 40 mg PO BID 03/08/21 tramadol 50 mg PO Q4-8H PRN 03/08/21 Allergies Allergy/AdvReac Type Severity Reaction Status Date / Time No Known Allergies Allergy Verified 10/25/20 09:21 Review of Systems Review of Systems: ROS unobtainable: Yes unobtainable due to mental status PMFSH Past Medical History Medical History Anemia Chronic emphysema syndrome Essential (primary) hypertension Hx of breast cancer Hypokalemia DAVID (obstructive sleep apnea) Osteopenia PAD (peripheral artery disease) Renovascular hypertension Surgical History Surgical History History of carotid endarterectomy Family History Family History Mother Family history of diabetes mellitus in first degree relative Family history of malignant neoplasm of uterus, Onset Age: 48 Hypertension, Onset Age: 92 Family history of malignant neoplasm of ovary Diabetes mellitus, Onset Age: 92 Family history of cardiovascular disease, Onset Age: 92 Father Family history of heart disease in male family member before age 55 Hypertension, Onset Age: 75 Family history of cardiovascular disease, Onset Age: 75 Sibling Diabetes mellitus Other Family history of malignant neoplasm of male breast Social History Social History Smoking status: Never smoker Alcohol intake: never Gender identity (if verbalized by the patient): Female Spiritual care concerns: No Exam Narrative: GENERAL: Well-appearing, well-nourished, and in no acute distress. HEAD: Normocephalic, atraumatic. EYES: PERRLA and EOMI. ENT: Nares clear, no rhinorrhea or epistaxis. Mucous membranes moist. NECK: Supple. No masses. No JVD CHEST: Clear to auscultation. No respiratory distress. No wheezes rales or rhonchi HEART: Regular rate and rhythm. No murmur heard. Normal peripheral pulses. ABDOMEN: Soft, nontender, nondistended, normal active bowel sounds. EXTREMITIES: Normal range of motion. No edema. SKIN: Warm, dry, no rash. NEURO: Patient initially was not answering questions would look at you when you spoke to her did not follow commands did respond to noxious stimuli. Repeat exam her cranial nerves II through XII are intact she had 5 out of 5 strength lower extremities and sensation was intact to light touch. Only complaint was she is thirsty Course Reevaluation(s) Reevaluation #1: Patient is verbal has a nonfocal neurological exam family is at bedside and feels she is at her baseline mental status. With reassuring work-up and improvement exam patient is appropriate for trial of outpatient antibiotics. Family prefers trial of outpatient antibiotics Date: 03/08/21 Time: 11:
--- NOTE | 2021-03-08 12:56 | PC.NURSE ---
Patient is found to be lying in bed with family member in room. Patient is awake and alert. She is oriented to day, month, name, and current location. She is unable to tell me the year and had difficulty recalling her birthday. When asked why she was brought to the ED she was able to tell me because I was unresponsive . Her speech is slurred slightly but family member reports this as normal. Patient is noted to have an indwelling arenas catheter due to immobility. Patient's family member states that she is unable to get up and has difficulty placing weight on the left foot. Patient does wear a boot on the left leg due to previous fracture with surgery. Family member also reports that patient did have a stroke while in rehab following the fracture. Patient is at her baseline per family.
--- NOTE | 2021-03-08 13:14 | PC.NURSE ---
[facility] accepted return to [facility]f ETA 14:30 Trip #[id number]
== END 2021-03-08 12:54 ==
PROVIDERS: Emergency Provider Emergency Medicine; PCP Family Medicine
DX: N39.0 Urinary tract infection, site not specified (principal); D72.829 Elevated white blood cell count, unspecified; J43.9 Emphysema, unspecified; I10 Essential (primary) hypertension; Z85.3 Personal history of malignant neoplasm of breast; G47.33 Obstructive sleep apnea (adult) (pediatric); I15.0 Renovascular hypertension; D64.9 Anemia, unspecified; R94.31 Abnormal electrocardiogram [ECG] [EKG]; I65.21 Occlusion and stenosis of right carotid artery
CPT/HCPCS: 36415; 70450; 70496; 70498; 71045; 80053; 81001; 85025; 87086; 87088; 93005; 96365; 99284; J0696; Q9967

== ENCOUNTER 2021-04-23 07:23 | Outpatient (RCR) | payer MEDICARE, SELFPAY ==
[2021-03-26 10:00] VITALS: BMI 30.3
--- NOTE | 2021-04-23 09:47 | PCWOUND ---
WOCN NOTE patient did not show up for her scheduled appointment. Call was made to [facility]. Spoke with Amelia who states that patient was discharged home. Patient discharged from wound care services.
== END 2021-04-23 09:47 | disposition home or self-care (01) ==
LOC: ANHWOC 07:23
PROVIDERS: PCP Family Medicine; Visit Provider Family Medicine
DX: L89.629 Pressure ulcer of left heel, unspecified stage (principal)
CPT/HCPCS: 99212; G0463

== ENCOUNTER 2023-12-29 14:01 | Outpatient (CLI) | payer MEDICARE, MEDICAID, SELFPAY ==
--- NOTE | ~2023-12-29 | CT_ITS ---
CT Scan of the Chest without Contrast: Clinical Indication: Hilar mass Technique: Contiguous sections were acquired throughout the chest without intravenous contrast. Dose reduction technique was used on this scan by utilizing automated exposure control and iterative recon struction technique. The dose-length product (DLP) was 485.00 mGy-cm. Findings: There is no evidence of any significant mediastinal, hilar or axillary lymphadenopathy. The mediastin al soft tissues appear normal. There is no evidence of pleural or pericardial effusion. There is minimal bibasilar chronic interstitial change versus minimal dependent atelectatic change. N o pulmonary nodule or consolidation evident. Images through the upper abdomen reveal no abnormalities. Impression: No hilar mass evident. Minimal bibasilar chronic interstitial change versus minimal dependent atelectatic change. Reviewed, dictated and finalized at [facility]. Impression: No hilar mass evident. Minimal bibasilar chronic interstitial change versus minimal dependent atelecta tic change.
== END 2023-12-29 14:02 | disposition home or self-care (01) ==
LOC: ANHIMG 14:02
PROVIDERS: PCP Family Medicine; Visit Provider Internal Medicine
DX: R91.8 Other nonspecific abnormal finding of lung field (principal)
CPT/HCPCS: 71250

== ENCOUNTER 2024-03-28 14:27 | Inpatient (IN) | payer MEDICARE, MEDICAID, SELFPAY ==
[2024-03-28] VITALS (8 sets, daily range): BP systolic 117–182; BP diastolic 46–74; PULSE 73–103; RESP 12–24; TEMP 35.9–36.6; O2SAT 95–99; BMI 29.1
--- NOTE | ~2024-03-28 | CT_ITS ---
EXAMINATION: CT pelvis w con DATE: 03/28/2024 17:51 INDICATION: Left-sided decubitus ulcer. TECHNIQUE: Computed tomography (CT) of the pelvis was performed with 100 mL Omnipaque 350 intravenous contrast. Automated exposure control and iterative reconstruction technique were employed. The dose- length product was 542.17 mGy-cm. COMPARISON: None FINDINGS: In the left buttock, there is a 3.4 x 1.5 cm subcutaneous abscess containing fluid and gas. There is prominent fat in the umbilicus that may be a hernia. There is diffuse bladder wall thickeni ng, consistent with cystitis. There are no dilated loops of bowel. The appendix is normal. There are no pathologically enlarged lymph nodes. There is no free intraperitoneal fluid. There is severe lumba r spondylosis. There is no evidence of osteoarthritis. IMPRESSION: 1. 3.4 x 1.5 cm subcutaneous abscess in the left buttock. 2. Cystitis. Reviewed, dictated and finalized at location A.
[2024-03-28 15:44] LABS: Hemoglobin 8.1 g/dL (12.0-15.0); Mean Corpuscular HGB Conc 31.2 g/dl (32-36); Mean Corpuscular Hemoglobin 27.8 pg (26-34); Mean Corpuscular Volume 89.3 fl (80-100); Platelet Count Result 376 k/mm3 (150-375); Red Blood Count 2.91 M/mm3 (4.2-5.4); Red Cell Distribution Width 22.5 % (11.5-14.5)
[2024-03-28 15:58] LABS: Alanine Aminotransferase 37 U/L (6-35); Albumin Level 3.2 g/dL (3.5-5.1); Alkaline Phosphatase 78 U/L (38-126); Anion Gap 9 mmol/L (4-12); Aspartate Amino Transferase 40 U/L (14-36); Bilirubin,Total 0.8 mg/dL (0.2-1.3); Blood Urea Nitrogen 27 mg/dL (7-17); Calcium 8.6 mg/dL (8.4-10.2); Carbon Dioxide 26 mmol/L (22-30); Chloride 103 mmol/L (98-107); Estimated CRCL calculation 29 ml/min; Estimated Glomerular Filt Rate 39; Glucose 250 mg/dL (65-110); Potassium 3.7 mmol/L (3.4-5.0); Sodium 138 mmol/L (137-145)
[2024-03-28 16:03] LABS: INR 1.1; Partial Thromboplastin Time 33.9 Seconds (22.3-36.8)
[2024-03-28 16:22] LABS: Band Neutrophils Percent 4 % (0-6); Lymphocytes Absolute Manual 2.28 K/mm3 (1.1-4.5); Monocytes Absolute Manual 0.84 K/mm3 (0.1-0.90); Monocytes Percent Manual 7 % (3-9); Neutrophils Absolute Manual 8.88 K/mm3 (1.7-7.2); Neutrophils Percent Manual 70 % (46-73); Total Cells Counted 100
[2024-03-28 16:23] LABS: Platelet Estimate Adequate (Adequate)
[2024-03-28 16:25] LABS: Anisocytosis 3+; Hypochromasia 1+; Schistocytes Rare
[2024-03-28 17:28] LABS: CRP 8.9 mg/dL (<1.0)
--- NOTE | 2024-03-28 17:32 | ED.WOUNDLAC ---
HPI - Wound/Laceration General Chief Complaint: Wound/Laceration <Neyda Gómez PA-C - Last Filed: 03/28/24 23:39> Stated Complaint: wound <Neyda Gómez PA-C - Last Filed: 03/28/24 23:39> Time Seen by Provider: 03/28/24 17:02 <IRINA Zamorano Last Filed: 03/28/24 23:39> Source: patient <IRINA Zamorano Last Filed: 03/28/24 23:39> Mode of arrival: EMS <IRINA Zamorano Last Filed: 03/28/24 23:39> Limitations: no limitations <IRINA Zamorano Last Filed: 03/28/24 23:39> History of Present Illness HPI narrative: Patient is an 88-year-old female who presents the ED via EMS with report of a wound to her left buttock. Patient is resident of [facility]. She is nonambulatory at baseline, requires transfer with [facility]. Staff reports they noticed a wound to her left buttock over the last few days which has increased in size. Family member at bedside states she was told the wound burst today and she was sent here for further evaluation. Patient states the wound has been there for approximately 2 weeks. She complains of pain to her left buttocks. Denies abdominal pain. Denies known fevers. States she has otherwise been feeling okay. She is a diabetic on insulin therapy. <IRINA Zamorano Last Filed: 03/28/24 23:39> Related Data Home Medications: Home Medications Medication Instructions Recorded Confirmed ferrous sulfate 325 mg (65 mg 325 mg PO BID 05/31/19 03/28/24 iron) tablet Lantus Solostar U-100 Insulin 18 units subcut HS 03/08/21 03/28/24 Dextrose Gel 15 g PO Q15M PRN Hypoglycemia 03/26/21 03/28/24 atorvastatin 40 mg tablet 40 mg PO HS 03/26/21 03/28/24 fexofenadine 60 mg tablet (Alise 60 mg PO Q12H 03/26/21 03/28/24 Allergy) glucagon HCl 1 mg solution for 1 mg subcut Q20M PRN Hypoglycemia 03/26/21 03/28/24 injection (Glucagon (HCl) Emergency Kit) hydralazine 25 mg tablet 25 mg PO TID 03/26/21 03/28/24 ipratropium 0.5 mg-albuterol 3 mg 3 ml inhalation QID PRN Shortness 03/26/21 03/28/24 (2.5 mg base)/3 mL nebulization Of Breath soln metoprolol tartrate 25 mg tablet 25 mg PO BID 03/26/21 03/28/24 albuterol sulfate 90 mcg/actuation 2 puff inhalation QID PRN SOB or 03/28/24 03/28/24 aerosol inhaler wheezing ascorbic acid (vitamin C) 500 mg 500 mg PO DAILY 03/28/24 03/28/24 tablet benzonatate 100 mg capsule 100 mg PO TID 03/28/24 03/28/24 gabapentin 100 mg capsule 100 mg PO TID 03/28/24 03/28/24 gentamicin 0.1 % topical cream 1 applic topical PRN PRN Wound Care 03/28/24 03/28/24 guaifenesin 600 mg tablet, 600 mg PO Q8H 03/28/24 03/28/24 extended release 12 hr (Mucinex) insulin aspart U-100 100 unit/mL 1 sliding scale dose subcut 03/28/24 03/28/24 subcutaneous solution (Novolog USEASDIRECTD U-100 Insulin aspart) multivitamin 1 tablet PO DAILY 03/28/24 03/28/24 naloxone 4 mg/actuation nasal 1 spray intranasal Q2-3M PRN 03/28/24 03/28/24 spray (Narcan) Opioid Overdose ondansetron 4 mg disintegrating 4 mg PO Q8H PRN Nausea 03/28/24 03/28/24 tablet pantoprazole 40 mg tablet,delayed 40 mg PO QAM 03/28/24 03/28/24 release polyethylene glycol 3350 17 17 g PO DAILY 03/28/24 03/28/24 gram/dose oral powder (Miralax) sennosides 8.6 mg-docusate sodium 1 tab-cap PO DAILY 03/28/24 03/28/24 50 mg tablet (Senna with Docusate Sodium) tramadol 50 mg tablet 50 mg PO BID PRN Pain 03/28/24 03/28/24 verapamil 40 mg tablet 40 mg PO Q8H 03/28/24 03/28/24 <Neyda Gómez PA-C - Last Filed: 03/28/24 23:39> Allergies/Adverse Reactions: Allergies Allergy/AdvReac Type Severity Reaction Status Date / Time morphine Allergy Unknown Verified 03/30/24 13:13 tramadol Allergy Unknown Verified 03/30/24 13:13 <Neyda Gómez PA-C - Last Filed: 03/28/24 23:39> Review of Systems Review of Systems: All systems reviewed & are unremarkable except as noted in HPI. <Neyda Gómez PA-C - Last Filed: 03/28/24 23:39> All systems reviewed & are unremarkable except as noted in HPI and below <Neyda Gómez PA-C - Last Filed: 03/28/24 23:39> [facility] Past Medical History Medical History: Medical History (Updated 03/31/24 @ 13:16 by Vernon Zabala DO) Cancer of right breast Chronic kidney disease, stage 3 Chronic obstructive pulmonary disease Deep venous thrombosis Hypertension Insulin dependent type 2 diabetes mellitus Iron deficiency anemia Obstructive sleep apnea previously on ASV Osteopenia Peripheral arterial disease Pulmonary nodules Stable Last CT-Scan 03/08/2017. <Neyda Gómez PA-C - Last Filed: 03/28/24 23:39> Surgical History Surgical History: Surgical History History of carotid endarterectomy History of cholecystectomy <Neyda Gómez PA-C - Last Filed: 03/28/24 23:39> Family History Family History: Family History Mother Family history of diabetes mellitus in first degree relative Family history of malignant neoplasm of uterus, Onset Age: 48 Hypertension, Onset Age: 92 Family history of malignant neoplasm of ovary Diabetes mellitus, Onset Age: 92 Family history of cardiovascular disease, Onset Age: 92 Father Family history of heart disease in male family member before age 55 Hypertension, Onset Age: 75 Family history of cardiovascular disease, Onset Age: 75 Sibling Diabetes mellitus Other Family history of malignant neoplasm of male breast <Neyda Gómez PA-C - Last Filed: 03/28/24 23:39> Social History Social History: Social History Social History: Surrogate medical decision maker: Joan Huffmanson, friend. Code status: Do not resuscitate. Smoking status: Never smoker Alcohol intake: never Do You Feel Safe in your Home?: Yes Lack of Transportation: No Lack of Food: Never True Current Housing: I Have Housing Concerned About Future Housing: No Difficulty Paying Gas/Electric Bills: No Difficulty Paying for Meds: No Currently Unemployed: No Education: High School Diploma/GED Difficulty w/ Childcare or Family Care: No Spiritual care concerns: No <Neyda Gómez PA-C - Last Filed: 03/28/24 23:39> Exam Narrative: GENERAL: Chronically ill-appearing, non-toxic, in no acute distress. HEAD: Normocephalic, atraumatic. RESPIRATORY: Airway patent, respirations nonlabored. Clear to auscultation bilaterally, no rales, rhonchi, wheezing. CARDIOVASCULAR: Regular rate and rhythm without murmurs, rubs, or gallops. ABDOMINAL: Soft, nontender, nondistended. Normoactive BS. MUSCULOSKELETAL: Moves all extremities. No gross deformities. SKIN: Warm, dry, normal color. Approx 3x3cm circular pressure ulcer to L ischial tuberosity with border of eschar, tunneling deeper in center, purulent malodorous drainage. Large area of surrounding induration and focal tenderness. Small pustular pimple like lesion just lateral from larger wound. NEURO: A&O X3. Speech clear. Diffusely weak per baseline. No ataxic movements. PSYCHIATRIC: Appropriate mood and affect. Normal interaction. <Neyda Gómez PA-C - Last Filed: 03/28/24 23:39> Course MAXILLOFACIAL PATHOLOGY/PA Physician Supervision For this patient encounter, I reviewed the MAXILLOFACIAL PATHOLOGY or PA documentation, treatment plan, and medical decision making; and I had [id number] time with this patient. <Denys Gipson MD - Last Filed: 04/01/24 07:10> Vital Signs Vital signs: Vital Signs Temperature 97.8 F 03/28/24 14:38 Pulse Rate 74 03/28/24 14:38 Respiratory Rate 20 03/28/24 14:38 Blood Pressure 142/57 H 03/28/24 14:38 Pulse Oximetry 97 03/28/24 14:38 Oxygen Delivery Room Air 03/28/24 14:38 Temperature 98.2 F 04/01/24 05:03 Pulse Rate 67 04/01/24 05:03 Respiratory Rate 18 04/01/24 05:03 Blood Pressure 153/48 H 04/01/24 05:03 Pulse Oximetry 98 04/01/24 05:03 Oxygen Delivery Room Air 03/31/24 08:58 Oxygen Flow Rate 8 03/30/24 15:45 <Neyda Gómez PA-C - Last Filed: 03/28/24 23:39> Vital Signs Temperature 97.8 F 03/28/24 14:38 Pulse Rate 74 03/28/24 14:38 Respiratory Rate 20 03/28/24 14:38 Blood Pressure 142/57 H 03/28/24 14:38 Pulse Oximetry 97 03/28/24 14:38 Oxygen Delivery Room Air 03/28/24 14:38 Temperature 98.2 F 04/01/24 05:03 Pulse Rate 67 04/01/24 05:03 Respiratory Rate 18 04/01/24 05:03 Blood Pressure 153/48 H 04/01/24 05:03 Pulse Oximetry 98 04/01/24 05:03 Oxygen Delivery Room Air 03/31/24 08:58 Oxygen Flow Rate 8 03/30/24 15:45 <Denys Gipson MD - Last Filed: 04/01/24 07:10> MDM - Wound/Laceration MDM Narrative Medical decision making narrative: Patient presented to ED from local long-term with report of wounds to her left buttock. Exam does reveal large pressure wound which appears acutely infected. Very malodorous with purulent drainage present. Eschar present. Vital signs are stable here. She is afebrile. Cbc with levels of count of 12.0. 70% neutrophils, 4% bands. Hemoglobin slightly low at 8.1. Appears fairly consistent with previous records. No recent records to compare to. Patient denies any known bleeding. She did have a large bowel movement upon my evaluation which did not appear melanotic. CMP with creatinine of 1.3, again consistent with previous records. Blood glucose is elevated to 250. Normal bicarb. No anion gap. Inflammatory markers are notably elevated, CRP 8.9. ESR 124. Lactic 1.0. Pelvic CT was obtained and showing subcutaneous abscess of left buttock. Clinically wound is open, no obvious subq abscess. Family member reports that the wound burst open today. Urine additionally appears infected. Sent for cx. Blood cx were obtained. Patient will be admitted for further evaluation of wound, wound care, IV antibiotics. Zosyn started in the ED per ED abx stewardship for infected pressure ulcer. Discussed case with Dr. Zabala, general surgery, will consult. Discussed case with Dr. Swift, hospitalist, accepted patient for admission. Agreed w/ plan to add on flagyl given patient is diabetic as well as vancomycin for abscess/purulent disease. Patient has hx of MRSA. Patient and family in agreement with plan and need for admission. Patient given tylenol and tramadol for pain. <Neyda Gómez PA-C - Last Filed: 03/28/24 23:39> Medical Records Attestation: I reviewed the patient's medical records. <IRINA Zamorano Last Filed: 03/28/24 23:39> Lab Data Attestation: I reviewed the patient's lab results. <IRINA Zamorano Last Filed: 03/28/24 23:39> Result diagrams: 04/01/24 05:10 04/01/24 05:10 <IRINA Zamorano Last Filed: 03/28/24 23:39> Labs: Lab Results 03/28/24 03/28/24 03/29/24 Range/Units 15:30 20:18 01:36 WBC 12.0 H (4.5-10.0) K/mm3 RBC 2.91 L (4.2-5.4) M/mm3 Hgb 8.1 L (12.0-15.0) g/dL Hct 26.0 L (37.0-47.0) % MCV 89.3 (80-100) fl MCH 27.8 (26-34) pg MCHC 31.2 L (32-36) g/dl RDW 22.5 H (11.5-14.5) % Plt Count 376 H (150-375) k/mm3 MPV 12.0 H (7.4-10.4) fl Immature Gran % (Auto) Not Reportable Neut % (Auto) Not Reportable Lymph % (Auto) Not Reportable Stephens % (Auto) Not Reportable Eos % (Auto) Not Reportable Baso % (Auto) Not Reportable Lymph # (Auto) Not Reportable Stephens # (Auto) Not Reportable Eos # (Auto) Not Reportable Baso # (Auto) Not Reportable Abs Immat Gran (auto) Not Reportable Absolute Neuts (auto) Not Reportable Absolute Nucleated RBC Not Reportable Total Counted 100 Neutrophils % (Manual) 70 (46-73) % Band Neutrophils % 4 (0-6) % Lymphocytes % (Manual) 19.0 (18-44) % Monocytes % (Manual) 7 (3-9) % Nucleated RBC % Not Reportable Abs Neuts (Manual) 8.88 H (1.7-7.2) K/mm3 Abs Lymphs (Manual) 2.28 (1.1-4.5) K/mm3 Abs Monocytes (Manual) 0.84 (0.1-0.90) K/mm3 Platelet Estimate Adequate (Adequate) Hypochromasia 1+ Anisocytosis 3+ Schistocytes Rare ESR 124 H (0-20) mm/hr PT 14.0 (11.1-14.7) Seconds INR 1.1 APTT 33.9 (22.3-36.8) Seconds Sodium 138 (137-145) mmol/L Potassium 3.7 (3.4-5.0) mmol/L Chloride 103 (98-107) mmol/L Carbon Dioxide 26 (22-30) mmol/L Anion Gap 9 (4-12) mmol/L BUN 27 H D (7-17) mg/dL Creatinine 1.30 H (0.7-1.0) mg/dL Estim Creat Clear Calc 29 ml/min Estimated GFR 39 L (59 - ) Glucose 250 H (65-110) mg/dL POC Capillary Glucose 138 H (65-105) mg/dl Hemoglobin A1c 6.9 H (<5.7) % Lactic Acid 1.0 (0.7-2.0) mmol/L Calcium 8.6 (8.4-10.2) mg/dL Magnesium (1.6-2.3) mg/dL Total Bilirubin 0.8 (0.2-1.3) mg/dL AST 40 H (14-36) U/L ALT 37 H (6-35) U/L Alkaline Phosphatase 78 (38-126) U/L C-Reactive Protein 8.9 H (<1.0) mg/dL Total Protein 7.0 (6.3-8.2) g/dL Albumin 3.2 L (3.5-5.1) g/dL Urine Color Yellow (Yellow) Urine Appearance Turbid H (Clear) Urine pH 8.0 (5.0-9.0) Ur Specific [place] > 1.045 H (1.001-1.035) Urine Protein 2+ H (Negative) mg/dL Urine Glucose (UA) Negative (Negative) mg/dL Urine Ketones Negative (Negative) mg/dL Ur Blood (Man) 1+ H (Negative) Urine Nitrate Negative (Negative) Urine Bilirubin Negative (Negative) Urine Urobilinogen 0.2 (<2.0) mg/dL Add Ur Microanalysis Reviewed Leukocyte Esterase Rfl 3+ H (Negative) MELVIN/UL Urine RBC 11-20 H (0-2) /hpf Urine WBC >100 H (0-3) /hpf Ur Squamous Epith Cells None seen (Few) /hpf Urine Bacteria 4+ /hpf Urine Casts >20 03/29/24 03/29/24 03/29/24 Range/Units 04:29 05:47 07:51 WBC 12.8 H (4.5-10.0) K/mm3 RBC 2.64 L (4.2-5.4) M/mm3 Hgb 7.4 L (12.0-15.0) g/dL Hct 23.6 L (37.0-47.0) % MCV 89.4 (80-100) fl MCH 28.0 (26-34) pg MCHC 31.4 L (32-36) g/dl RDW 22.7 H (11.5-14.5) % Plt Count 344 (150-375) k/mm3 MPV 11.9 H (7.4-10.4) fl Immature Gran % (Auto) Neut % (Auto) Lymph % (Auto) Stephens % (Auto) Eos % (Auto) Baso % (Auto) Lymph # (Auto) Stephens # (Auto) Eos # (Auto) Baso # (Auto) Abs Immat Gran (auto) Absolute Neuts (auto) Absolute Nucleated RBC Total Counted Neutrophils % (Manual) (46-73) % Band Neutrophils % (0-6) % Lymphocytes % (Manual) (18-44) % Monocytes % (Manual) (3-9) % Nucleated RBC % Abs Neuts (Manual) (1.7-7.2) K/mm3 Abs Lymphs (Manual) (1.1-4.5) K/mm3 Abs Monocytes (Manual) (0.1-0.90) K/mm3 Platelet Estimate (Adequate) Hypochromasia Anisocytosis Schistocytes ESR (0-20) mm/hr PT (11.1-14.7) Seconds INR APTT (22.3-36.8) Seconds Sodium 137 (137-145) mmol/L Potassium 3.8 (3.4-5.0) mmol/L Chloride 105 (98-107) mmol/L Carbon Dioxide 26 (22-30) mmol/L Anion Gap 6 (4-12) mmol/L BUN 25 H (7-17) mg/dL Creatinine 1.30 H (0.7-1.0) mg/dL Estim Creat Clear Calc 28 ml/min Estimated GFR 39 L (59 - ) Glucose 106 (65-110) mg/dL POC Capillary Glucose 109 H 123 H (65-105) mg/dl Hemoglobin A1c (<5.7) % Lactic Acid (0.7-2.0) mmol/L Calcium 8.3 L (8.4-10.2) mg/dL Magnesium 1.5 L (1.6-2.3) mg/dL Total Bilirubin 0.8 (0.2-1.3) mg/dL AST 33 (14-36) U/L ALT 34 (6-35) U/L Alkaline Phosphatase 73 (38-126) U/L C-Reactive Protein (<1.0) mg/dL Total Protein 6.0 L (6.3-8.2) g/dL Albumin 2.9 L (3.5-5.1) g/dL Urine Color (Yellow) Urine Appearance (Clear) Urine pH (5.0-9.0) Ur Specific [place] (1.001-1.035) Urine Protein (Negative) mg/dL Urine Glucose (UA) (Negative) mg/dL Urine Ketones (Negative) mg/dL Ur Blood (Man) (Negative) Urine Nitrate (Negative) Urine Bilirubin (Negative) Urine Urobilinogen (<2.0) mg/dL Add Ur Microanalysis Leukocyte Esterase Rfl (Negative) MELVIN/UL Urine RBC (0-2) /hpf Urine WBC (0-3) /hpf Ur Squamous Epith Cells (Few) /hpf Urine Bacteria /hpf Urine Casts <Neyda Gómez PA-C - Last Filed: 03/28/24 23:39> Lab Results 03/28/24 03/28/24 03/29/24 Range/Units 15:30 20:18 01:36 WBC 12.0 H (4.5-10.0) K/mm3 RBC 2.91 L (4.2-5.4) M/mm3 Hgb 8.1 L (12.0-15.0) g/dL Hct 26.0 L (37.0-47.0) % MCV 89.3 (80-100) fl MCH 27.8 (26-34) pg MCHC 31.2 L (32-36) g/dl RDW 22.5 H (11.5-14.5) % Plt Count 376 H (150-375) k/mm3 MPV 12.0 H (7.4-10.4) fl Immature Gran % (Auto) Not Reportable Neut % (Auto) Not Reportable Lymph % (Auto) Not Reportable Stephens % (Auto) Not Reportable Eos % (Auto) Not Reportable Baso % (Auto) Not Reportable Lymph # (Auto) Not Reportable Stephens # (Auto) Not Reportable Eos # (Auto) Not Reportable Baso # (Auto) Not Reportable Abs Immat Gran (auto) Not Reportable Absolute Neuts (auto) Not Reportable Absolute Nucleated RBC Not Reportable Total Counted 100 Neutrophils % (Manual) 70 (46-73) % Band Neutrophils % 4 (0-6) % Lymphocytes % (Manual) 19.0 (18-44) % Monocytes % (Manual) 7 (3-9) % Nucleated RBC % Not Reportable Abs Neuts (Manual) 8.88 H (1.7-7.2) K/mm3 Abs Lymphs (Manual) 2.28 (1.1-4.5) K/mm3 Abs Monocytes (Manual) 0.84 (0.1-0.90) K/mm3 Platelet Estimate Adequate (Adequate) Hypochromasia 1+ Anisocytosis 3+ Schistocytes Rare ESR 124 H (0-20) mm/hr PT 14.0 (11.1-14.7) Seconds INR 1.1 APTT 33.9 (22.3-36.8) Seconds Sodium 138 (137-145) mmol/L Potassium 3.7 (3.4-5.0) mmol/L Chloride 103 (98-107) mmol/L Carbon Dioxide 26 (22-30) mmol/L Anion Gap 9 (4-12) mmol/L BUN 27 H D (7-17) mg/dL Creatinine 1.30 H (0.7-1.0) mg/dL Estim Creat Clear Calc 29 ml/min Estimated GFR 39 L (59 - ) Glucose 250 H (65-110) mg/dL POC Capillary Glucose 138 H (65-105) mg/dl Hemoglobin A1c 6.9 H (<5.7) % Lactic Acid 1.0 (0.7-2.0) mmol/L Calcium 8.6 (8.4-10.2) mg/dL Magnesium (1.6-2.3) mg/dL Total Bilirubin 0.8 (0.2-1.3) mg/dL AST 40 H (14-36) U/L ALT 37 H (6-35) U/L Alkaline Phosphatase 78 (38-126) U/L C-Reactive Protein 8.9 H (<1.0) mg/dL Total Protein 7.0 (6.3-8.2) g/dL Albumin 3.2 L (3.5-5.1) g/dL Urine Color Yellow (Yellow) Urine Appearance Turbid H (Clear) Urine pH 8.0 (5.0-9.0) Ur Specific [place] > 1.045 H (1.001-1.035) Urine Protein 2+ H (Negative) mg/dL Urine Glucose (UA) Negative (Negative) mg/dL Urine Ketones Negative (Negative) mg/dL Ur Blood (Man) 1+ H (Negative) Urine Nitrate Negative (Negative) Urine Bilirubin Negative (Negative) Urine Urobilinogen 0.2 (<2.0) mg/dL Add Ur Microanalysis Reviewed Leukocyte Esterase Rfl 3+ H (Negative) MELVIN/UL Urine RBC 11-20 H (0-2) /hpf Urine WBC >100 H (0-3) /hpf Ur Squamous Epith Cells None seen (Few) /hpf Urine Bacteria 4+ /hpf Urine Casts >20 03/29/24 03/29/24 03/29/24 Range/Units 04:29 05:47 07:51 WBC 12.8 H (4.5-10.0) K/mm3 RBC 2.64 L (4.2-5.4) M/mm3 Hgb 7.4 L (12.0-15.0) g/dL Hct 23.6 L (37.0-47.0) % MCV 89.4 (80-100) fl MCH 28.0 (26-34) pg MCHC 31.4 L (32-36) g/dl RDW 22.7 H (11.5-14.5) % Plt Count 344 (150-375) k/mm3 MPV 11.9 H (7.4-10.4) fl Immature Gran % (Auto) Neut % (Auto) Lymph % (Auto) Stephens % (Auto) Eos % (Auto) Baso % (Auto) Lymph # (Auto) Stephens # (Auto) Eos # (Auto) Baso # (Auto) Abs Immat Gran (auto) Absolute Neuts (auto) Absolute Nucleated RBC Total Counted Neutrophils % (Manual) (46-73) % Band Neutrophils % (0-6) % Lymphocytes % (Manual) (18-44) % Monocytes % (Manual) (3-9) % Nucleated RBC % Abs Neuts (Manual) (1.7-7.2) K/mm3 Abs Lymphs (Manual) (1.1-4.5) K/mm3 Abs Monocytes (Manual) (0.1-0.90) K/mm3 Platelet Estimate (Adequate) Hypochromasia Anisocytosis Schistocytes ESR (0-20) mm/hr PT (11.1-14.7) Seconds INR APTT (22.3-36.8) Seconds Sodium 137 (137-145) mmol/L Potassium 3.8 (3.4-5.0) mmol/L Chloride 105 (98-107) mmol/L Carbon Dioxide 26 (22-30) mmol/L Anion Gap 6 (4-12) mmol/L BUN 25 H (7-17) mg/dL Creatinine 1.30 H (0.7-1.0) mg/dL Estim Creat Clear Calc 28 ml/min Estimated GFR 39 L (59 - ) Glucose 106 (65-110) mg/dL POC Capillary Glucose 109 H 123 H (65-105) mg/dl Hemoglobin A1c (<5.7) % Lactic Acid (0.7-2.0) mmol/L Calcium 8.3 L (8.4-10.2) mg/dL Magnesium 1.5 L (1.6-2.3) mg/dL Total Bilirubin 0.8 (0.2-1.3) mg/dL AST 33 (14-36) U/L ALT 34 (6-35) U/L Alkaline Phosphatase 73 (38-126) U/L C-Reactive Protein (<1.0) mg/dL Total Protein 6.0 L (6.3-8.2) g/dL Albumin 2.9 L (3.5-5.1) g/dL Urine Color (Yellow) Urine Appearance (Clear) Urine pH (5.0-9.0) Ur Specific [place] (1.001-1.035) Urine Protein (Negative) mg/dL Urine Glucose (UA) (Negative) mg/dL Urine Ketones (Negative) mg/dL Ur Blood (Man) (Negative) Urine Nitrate (Negative) Urine Bilirubin (Negative) Urine Urobilinogen (<2.0) mg/dL Add Ur Microanalysis Leukocyte Esterase Rfl (Negative) MELVIN/UL Urine RBC (0-2) /hpf Urine WBC (0-3) /hpf Ur Squamous Epith Cells (Few) /hpf Urine Bacteria /hpf Urine Casts <Denys Gipson MD - Last Filed: 04/01/24 07:10> Imaging Data Attestation: I personally reviewed and interpreted this imaging study as follows: <Neyda Gómez PA-C - Last Filed: 03/28/24 23:39> Radiologist's impression: ITS Impressions Pelvis CT 03/28/24 17:59 IMPRESSION: 1. 3.4 x 1.5 cm subcutaneous abscess in the left buttock. 2. Cystitis. <Neyda Gómez PA-C - Last Filed: 03/28/24 23:39> Discharge Plan Discharge Clinical Impression: Left buttock abscess, Insulin dependent type 2 diabetes mellitus UTI (urinary tract infection) Qualifiers: Urinary tract infection type: acute cystitis Hematuria presence: with hematuria Qualified Code(s): N30.01 - Acute cystitis with hematuria <Neyda Gómez PA-C - Last Filed: 03/28/24 23:39> Patient Disposition: Still a Patient <Neyda Gómez PA-C - Last Filed: 03/28/24 23:39> Condition: Stable <Neyda Gómez PA-C - Last Filed: 03/28/24 23:39>
[2024-03-28 17:37] LABS: Erythrocyte Sedimentation Rate 124 mm/hr (0-20)
[2024-03-28 17:47] LABS: Hemoglobin A1C 6.9 % (<5.7)
--- NOTE | 2024-03-28 17:51 | PC.NURSE ---
Pt incontinent of large amount of stool. Pt cleansed, linen changed. Wet to dry dressing to wound on buttocks.
[2024-03-28] MEDS: PIPERACILLN/TAZ 3.375GM/NS50ML 3.375 GM/50 ML BAG IVPB (20:16)
[2024-03-28 20:46] LABS: Add Urine Microscopic? YES; Appearance Urine Turbid (Clear); Bacteria Urine 4+ /hpf; Bilirubin Urine Negative (Negative); Blood Urine 1+ (Negative); Color Urine Yellow (Yellow); Glucose Urine UA Negative (Negative); Ketones Urine Negative (Negative); Leukocyte Esterase Ur 3+ LEU/UL (Negative); Need Manual Microscopic Reviewed; Nitrate Urine Negative (Negative); Non Pathogenic Casts >20; Protein Urine 2+ mg/dL (Negative); Specific Grav Ur > 1.045 (1.001-1.035); Squamous Epithelial Cell Urine None Seen /hpf (Few); Urobilinogen Urine 0.2 mg/dL (<2.0); WBC Urine >100 /hpf (0-3)
[2024-03-28] MEDS: metroNIDAZOLE 500 MG/ISO 100ML 500 MG/100 ML BAG 100 MG IVPB (20:59)
[2024-03-28] MEDS: traMADol HCL (*CRX) 50 MG TABLET PO (21:01)
[2024-03-28] MEDS: ACETAMINOPHEN 500 MG TABLET 1000 MG PO (21:01)
--- NOTE | 2024-03-28 21:09 | PC.NURSE ---
This RN was notified of pt bed assignment @ 2108
--- NOTE | 2024-03-28 21:12 | PC.NURSE ---
Attempted to call report to floor nurse @ 2111 and was told she was in with another pt and would have to call back.
--- NOTE | 2024-03-28 23:00 | P.HP_ITS ---
H&P: HPI History of Present Illness Date/Time: 03/28/24 23:00 Chief Complaint: Left buttock wound. Narrative: This is an 88-year-old female with insulin-dependent diabetes, hypertension, hyperlipidemia, gastroesophageal reflux disease, iron deficiency anemia, and chronic kidney disease who presented to the emergency department via EMS from [facility] for evaluation of a left buttock wound. The patient and her family provide the following history. She is nonambulatory at baseline and requires transfer with a Keren lift. Staff reportedly noticed a wound over her left buttock a few days ago which has been increasing in size however patient believes it is been there for a couple of weeks. The wound opened up today and she was sent in for evaluation. She denies fever, chills, sweats, nausea, vomiting, diarrhea, and dysuria. No known history of multidrug resistant organisms. In the ED: She was afebrile on arrival with stable vital signs. Labs were significant for WBC count of 12.0, hemoglobin 8.1, ESR 124, BUN 27, creatinine 1.30, glucose 250, AST 40, ALT 37, CRP 8.9. Urine is concentrated with 2+ protein, 1+ blood, 3+ leukocyte esterase, 11 to 20 RBC, greater than 100 WBC, and 4+ bacteria. Pelvis CT showed a 3.4 x 1.5 cm subcutaneous abscess in the left buttock and findings of cystitis. She was started on broad-spectrum antibiotics and is being admitted in this setting for further treatment and surgery consultation. Review of Systems Review of Systems: 12 systems were reviewed and are negativ e except for as per HPI. [facility] Past Medical History Medical History (Updated 03/28/24 @ 23:34 by Marialuisa Doty PA-C) Cancer of right breast Chronic kidney disease, stage 3 Chronic obstructive pulmonary disease Deep venous thrombosis Hypertension Insulin dependent type 2 diabetes mellitus Iron deficiency anemia Obstructive sleep apnea previously on ASV Osteopenia Peripheral arterial disease Pulmonary nodules Stable Last CT-Scan 03/08/2017. Surgical History Surgical History History of carotid endarterectomy History of cholecystectomy Family History Family History Mother Family history of diabetes mellitus in first degree relative Family history of malignant neoplasm of uterus, Onset Age: 48 Hypertension, Onset Age: 92 Family history of malignant neoplasm of ovary Diabetes mellitus, Onset Age: 92 Family history of cardiovascular disease, Onset Age: 92 Father Family history of heart disease in male family member before age 55 Hypertension, Onset Age: 75 Family history of cardiovascular disease, Onset Age: 75 Sibling Diabetes mellitus Other Family history of malignant neoplasm of male breast Social History Social History Social History: Surrogate medical decision maker: Joan Westbrook, friend. Code status: Do not resuscitate. Smoking status: Never smoker Alcohol intake: never Do You Feel Safe in your Home?: Yes Lack of Transportation: No Lack of Food: Never True Current Housing: I Have Housing Concerned About Future Housing: No Difficulty Paying Gas/Electric Bills: No Difficulty Paying for Meds: No Currently Unemployed: No Education: High School Diploma/GED Difficulty w/ Childcare or Family Care: No Spiritual care concerns: No Meds Home Medications and Allergies Home Medications Medication Instructions Recorded Confirmed Type ferrous sulfate 325 mg (65 mg 325 mg PO BID 05/31/19 03/28/24 History iron) tablet Lantus Solostar U-100 Insulin 18 units subcut HS 03/08/21 03/28/24 History Dextrose Gel 15 g PO Q15M PRN Hypoglycemia 03/26/21 03/28/24 History atorvastatin 40 mg tablet 40 mg PO HS 03/26/21 03/28/24 History fexofenadine 60 mg tablet (Alise 60 mg PO Q12H 03/26/21 03/28/24 History Allergy) glucagon HCl 1 mg solution for 1 mg subcut Q20M PRN Hypoglycemia 03/26/21 03/28/24 History injection (Glucagon (HCl) Emergency Kit) hydralazine 25 mg tablet 25 mg PO TID 03/26/21 03/28/24 History ipratropium 0.5 mg-albuterol 3 mg 3 ml inhalation QID PRN Shortness 03/26/21 03/28/24 History (2.5 mg base)/3 mL nebulization Of Breath soln metoprolol tartrate 25 mg tablet 25 mg PO BID 03/26/21 03/28/24 History albuterol sulfate 90 mcg/actuation 2 puff inhalation QID PRN SOB or 03/28/24 03/28/24 History aerosol inhaler wheezing ascorbic acid (vitamin C) 500 mg 500 mg PO DAILY 03/28/24 03/28/24 History tablet benzonatate 100 mg capsule 100 mg PO TID 03/28/24 03/28/24 History gabapentin 100 mg capsule 100 mg PO TID 03/28/24 03/28/24 History gentamicin 0.1 % topical cream 1 applic topical PRN PRN Wound Care 03/28/2403/14 History guaifenesin 600 mg tablet, 600 mg PO Q8H 03/28/24 03/28/24 History extended release 12 hr (Mucinex) insulin aspart U-100 100 unit/mL 1 sliding scale dose subcut 03/28/24 03/28/24 History subcutaneous solution (Novolog USEASDIRECTD U-100 Insulin aspart) multivitamin 1 tablet PO DAILY 03/28/24 03/28/24 History naloxone 4 mg/actuation nasal 1 spray intranasal Q2-3M PRN 03/28/24 03/28/24 History spray (Narcan) Opioid Overdose ondansetron 4 mg disintegrating 4 mg PO Q8H PRN Nausea 03/28/24 03/28/24 History tablet pantoprazole 40 mg tablet,delayed 40 mg PO QAM 03/28/24 03/28/24 History release polyethylene glycol 3350 17 17 g PO DAILY 03/28/24 03/28/24 History gram/dose oral powder (Miralax) sennosides 8.6 mg-docusate sodium 1 tab-cap PO DAILY 03/28/24 03/28/24 History 50 mg tablet (Senna with Docusate Sodium) tramadol 50 mg tablet 50 mg PO BID PRN Pain 03/28/24 03/28/24 History verapamil 40 mg tablet 40 mg PO Q8H 03/28/24 03/28/24 History Allergies Allergy/AdvReac Type Severity Reaction Status Date / Time morphine Allergy Unknown Verified 03/28/24 19:46 tramadol Allergy Unknown Verified 03/28/24 19:46 Vital Signs Vital Signs - 24 hr 03/28/24 14:38 03/28/24 16:30 03/28/24 14:38 Temperature 97.8 F 97.8 F Pulse Rate 74 74 73 Respiratory Rate 20 20 19 Blood Pressure 142/57 H 151/74 H 142/57 H Pulse Oximetry 97 99 98 Oxygen Delivery Room Air 03/28/24 15:32 03/28/24 16:32 03/28/24 17:30 Temperature 97.8 F Pulse Rate 74 74 79 Respiratory Rate 22 H 24 H 18 Blood Pressure 152/46 H 147/52 H 182/67 H Pulse Oximetry 95 96 98 Oxygen Delivery 03/28/24 20:01 03/28/24 21:25 03/28/24 21:50 Temperature 96.7 F L Pulse Rate 82 83 103 H Respiratory Rate 12 18 20 Blood Pressure 182/67 H 175/56 H 117/63 Pulse Oximetry 98 96 98 Oxygen Delivery Exam Narrative: General: Chronically ill-appearing female supine in bed. Weight: 79.4 kg. BMI: 29.1. HEENT: PERRL, EOMI. Wearing corrective lenses. Sclera anicteric. Tacky mucous membranes. Neck: Supple. Respiratory: Lungs are clear to auscultation bilaterally. Cardiovascular: Regular rate and rhythm with S1-S2. Systolic murmur best heard at the upper sternal border. Gastrointestinal: Abdomen is soft, nontender, and nondistended with positive bowel sounds. Skin: Warm and dry. Open pressure ulcer draining foul-smelling, purulent fluid on the left buttocks with surrounding erythema, induration, warmth, and tenderness to palpation. There is a smaller shallow ulcerated area to the left of this region and some maceration below. There is a pressure sore on the plantar aspect of the left 5th metatarsal and she is wearing a walk full boot on that foot. Extremities: No cyanosis, clubbing, or significant edema. Radial and pedal pulses intact. Neurological: Alert. Cranial nerves 2-12 are grossly intact. Generalized weakness and immobility a baseline. Psychiatric: Cooperative with appropriate mood and affect. H&P: Results Labs Labs: Short CBC 03/28/24 Range/Units 15:30 WBC 12.0 H (4.5-10.0) K/mm3 Hgb 8.1 L (12.0-15.0) g/dL Hct 26.0 L (37.0-47.0) % Plt Count 376 H (150-375) k/mm3 BMP 03/28/24 15:30 Sodium 138 Potassium 3.7 Chloride 103 Carbon Dioxide 26 BUN 27 H D Creatinine 1.30 H Glucose 250 H Calcium 8.6 Liver Function 03/28/24 Range/Units 15:30 Total Bilirubin 0.8 (0.2-1.3) mg/dL AST 40 H (14-36) U/L ALT 37 H (6-35) U/L Alkaline Phosphatase 78 (38-126) U/L Albumin 3.2 L (3.5-5.1) g/dL Urine 03/28/24 Range/Units 20:18 Urine Color Yellow (Yellow) Urine Appearance Turbid H (Clear) Urine pH 8.0 (5.0-9.0) Ur Specific [place] > 1.045 H (1.001-1.035) Urine Protein 2+ H (Negative) mg/dL Urine Glucose (UA) Negative (Negative) mg/dL Impressions Pelvis CT 03/28/24 17:59 IMPRESSION: 1. 3.4 x 1.5 cm subcutaneous abscess in the left buttock. 2. Cystitis. Assessment and Plan Assessment and plan (1) Left buttock abscess: Code(s): L02.31 - Cutaneous abscess of buttock Status: Acute (2) Abnormal urinalysis: Code(s): R82.90 - Unspecified abnormal findings in urine Status: Acute (3) Insulin dependent type 2 diabetes mellitus: Code(s): E11.9 - Type 2 diabetes mellitus without complications; Z79.4 - jockey agent (current) use of insulin Status: Acute (4) Hypertension: Code(s): I10 - Essential (primary) hypertension Status: Acute (5) Chronic kidney disease, stage 3: Code(s): N18.30 - Chronic kidney disease, stage 3 unspecified Status: Acute (6) Iron deficiency anemia: Code(s): D50.9 - Iron deficiency anemia, unspecified Status: Acute (7) Obstructive sleep apnea: Code(s): G47.33 - Obstructive sleep apnea (adult) (pediatric) Status: Acute Plan The patient presented to the emergency department for evaluation of a left buttock wound as detailed in HPI. Labs, imaging, EKG, and all reports were personally reviewed. CT shows a 3.4 x 1.5 cm abscess and she has been started on cefepime, metronidazole, and vancomycin per antibiotic stewardship recommendations. She will be NPO after midnight for possible debridement in the OR tomorrow per surgery. Analgesics are available as needed. Urinalysis is abnormal though she denies symptoms of UTI. Blood and urine cultures have been obtained and are pending. Random glucose was 250 however her hemoglobin A1c was 6.9%. Continue basal insulin. Initiate sliding scale insulin, Accu-Cheks, and hypoglycemic protocol. Blood pressures have been stable if not a bit high. Renal function is stable on review of previous labs. Continue iron supplementation and monitor hemoglobin. Patient was previously on ASV for complex sleep apnea though it does not sound as though she is wearing that any longer. Her home medications will be reviewed and resumed as appropriate. Findings and treatment plan were discussed with the patient. Questions were solicited and answered to satisfaction. The patient's medical management will be taken over by the hospitalist team in a.m. Quality VTE Prophylaxis VTE prophylaxis: mechanical ordered If No VTE Prophylaxis Answer both mechanical and pharmacologic: Reason no pharmacologic proph: medical contraindication (anticipate debridement tomorrow) The patient has been admitted under observation status. Hospitalist [facility] Advance Care Plan I have confirmed that the patient's Advanced Care Plan is present, code status is documented, or surrogate decision maker is listed in patient medical record.: Yes Medication Reconciliation I have utilized all available resources to obtain, update and review the patients current medications (includes all prescriptions, OTC, herbals, cannabis, and nutritional supplements).: Yes
[2024-03-29] MEDS: CEFEPIME 1 GM/NS 50 ML 1 GM/50 ML BAG IVPB ×2 (01:36)
[2024-03-29 01:42] LABS: Glucose Point of Care 138 mg/dl (65-105)
[2024-03-29] MEDS: VANCOMYCIN 2,000 MG/NS 500 ML 2,000 MG/500 ML BAG 250 MG IVPB (02:21)
[2024-03-29] MEDS: VERAPAMIL HCL 40 MG TABLET PO ×4 (02:23→21:05)
[2024-03-29 05:16] LABS: Hematocrit 23.6 % (37.0-47.0); Hemoglobin 7.4 g/dL (12.0-15.0); Mean Corpuscular HGB Conc 31.4 g/dl (32-36); Mean Corpuscular Volume 89.4 fl (80-100); Mean Platelet Volume 11.9 fl (7.4-10.4); Platelet Count Result 344 k/mm3 (150-375); Red Blood Count 2.64 M/mm3 (4.2-5.4); Red Cell Distribution Width 22.7 % (11.5-14.5); White Blood Count 12.8 K/mm3 (4.5-10.0)
[2024-03-29 05:27] LABS: Alanine Aminotransferase 34 U/L (6-35); Albumin Level 2.9 g/dL (3.5-5.1); Alkaline Phosphatase 73 U/L (38-126); Anion Gap 6 mmol/L (4-12); Aspartate Amino Transferase 33 U/L (14-36); Bilirubin,Total 0.8 mg/dL (0.2-1.3); Blood Urea Nitrogen 25 mg/dL (7-17); Calcium 8.3 mg/dL (8.4-10.2); Carbon Dioxide 26 mmol/L (22-30); Chloride 105 mmol/L (98-107); Estimated CRCL calculation 28 ml/min; Estimated Glomerular Filt Rate 39; Glucose 106 mg/dL (65-110); Magnesium 1.5 mg/dL (1.6-2.3); Potassium 3.8 mmol/L (3.4-5.0); Sodium 137 mmol/L (137-145)
[2024-03-29 05:34] VITALS: BP 149/57; PULSE 70; RESP 18; TEMP 36.7; O2SAT 96
[2024-03-29 05:49] LABS: Glucose Point of Care 109 mg/dl (65-105)
[2024-03-29] MEDS: GABAPENTIN 100 MG CAPSULE PO ×3 (05:53→21:05)
[2024-03-29] MEDS: hydrALAZINE HCL 25 MG TABLET PO ×3 (05:56→21:05)
[2024-03-29] MEDS: metroNIDAZOLE 500 MG/ISO 100ML 500 MG/100 ML BAG 100 MG IVPB ×3 (05:56→21:04)
--- NOTE | 2024-03-29 07:30 | PM.IMPN ---
Progress Note: A&P Assessment and Plan (1) Left buttock abscess: Code(s): L02.31 - Cutaneous abscess of buttock Status: Acute Assessment and Plan: Patient presents with an open pressure ulcer draining foul smelling, purulent fluid with surrounding erythema, induration, warmth and tenderness to palpation. - Pelvis CT: 3.4 x 1.5 cm subcutaneous abscess in the left buttock. - Blood cultures collected on 03/28: pending - Antibiotics: Vanc, cefe, flagyl started on 03/29 - Monitor vital signs, I&Os, neuro status and patient is a fall risk - Monitor serum electrolytes, CBC, cultures, WBC and temp curve - Patient made NPO overnight for possible debridement today - Surgery consulted, per RN plan for debridement tomorrow 03/30 (2) Abnormal urinalysis: Code(s): R82.90 - Unspecified abnormal findings in urine Status: Acute Assessment and Plan: - UA: turbid appearance, > 1.045 specific gravity, 2+ protein, 1+ blood, 3+ leukocytes, 11-20 RBC, > 100 WBC, 4+ bacteria - UC obtained on 03/28: pending - No previous micro to be reviewed - started on cefepime on 03/29 as patient has cocurrent abscess (3) Insulin dependent type 2 diabetes mellitus: Code(s): E11.9 - Type 2 diabetes mellitus without complications; Z79.4 - correction (current) use of insulin Status: Acute Assessment and Plan: - hypoglycemia protocol - POC blood glucose ACHS - home medication - 18 units lantus HS and SSI with meals - correct regimen ordered - lantus 18 units HS and moderate SSI TIDWM - A1C 6.9 (4) Hypertension: Code(s): I10 - Essential (primary) hypertension Status: Acute Assessment and Plan: Chronic, continue home medications. - hydralazine 25 mg TID - metoprolol 25 mg BID - verapamil 40 mg q8H - monitor (5) Chronic kidney disease, stage 3: Code(s): N18.30 - Chronic kidney disease, stage 3 unspecified Status: Acute Assessment and Plan: BUN/Cr 27/1.3 with GFR 39 on admission. Appears at baseline. - Monitor I/O and renal function - Avoid nephrotoxic medications - Renally dose medications (6) Iron deficiency anemia: Code(s): D50.9 - Iron deficiency anemia, unspecified Status: Acute Assessment and Plan: Chronic, continue iron supplementation. - Monitor (7) Obstructive sleep apnea: Code(s): G47.33 - Obstructive sleep apnea (adult) (pediatric) Status: Acute Assessment and Plan: - previously on ASV for complex sleep apnea though it does not sound as though she is wearing that any longer Time Spent With Patient Time with patient: 25 - 35 minutes Subjective Date/time seen: 03/29/24 07:30 Interval history: 88-year-old female with insulin-dependent diabetes, hypertension, hyperlipidemia, gastroesophageal reflux disease, iron deficiency anemia, and chronic kidney disease who presented to the emergency department via EMS from [facility] for evaluation of a left buttock wound. Patient is pleasant lying comfortably in bed. She continues to endorse pain to her buttocks associated with her worsening abscess. Per integration manager plans for a debridement tomorrow. Patient denies chest pain, shortness of breath, nausea/vomiting and abdominal pain. Review of Systems Review of Systems: All systems reviewed & are unremarkable except as noted in HPI and below Exam Narrative: AF HR 70 RR 18 SPO2 96 BP 149/57 General: female in no acute respiratory distress who is nontoxic appearing, lying semi recumbent in bed. Chest: Lungs are clear to auscultation bilaterally. No wheezes or crackles. CV: Heart was regular rate and rhythm. S1-S2. No murmurs, gallops, or rubs. Abd: Abdomen was soft. Nontender. Nondistended. Positive bowel sounds. No organomegaly or masses. Ext: No clubbing, cyanosis, or edema. 2+ DP pulses bilaterally. Neuro: Patient is alert and oriented x3. Speech is clear. Psych: Normal nood and affect. Patient is pleasant and cooperative. Skin: open pressure ulcer of the left buttocks draining foul smelling, purulent fluid with surrounding erythema, induration, and tenderness to palpation. Objective Data Vital Signs Vital Signs: Vital Signs - 24 hr 03/28/24 14:38 03/28/24 16:30 03/28/24 14:38 Temperature 97.8 F 97.8 F Pulse Rate 74 74 73 Respiratory Rate 20 20 19 Blood Pressure 142/57 H 151/74 H 142/57 H Pulse Oximetry 97 99 98 Oxygen Delivery Room Air 03/28/24 15:32 03/28/24 16:32 03/28/24 17:30 Temperature 97.8 F Pulse Rate 74 74 79 Respiratory Rate 22 H 24 H 18 Blood Pressure 152/46 H 147/52 H 182/67 H Pulse Oximetry 95 96 98 Oxygen Delivery 03/28/24 20:01 03/28/24 21:25 03/28/24 21:50 Temperature 96.7 F L Pulse Rate 82 83 103 H Respiratory Rate 12 18 20 Blood Pressure 182/67 H 175/56 H 117/63 Pulse Oximetry 98 96 98 Oxygen Delivery 03/28/24 21:26 03/29/24 05:34 Temperature 98.1 F Pulse Rate 70 Respiratory Rate 18 Blood Pressure 149/57 H Pulse Oximetry 96 Oxygen Delivery Room Air Intake/Output Intake/Output: Intake & Output 03/26/24 03/27/24 03/28/24 03/29/24 23:59 23:59 23:59 23:59 Intake Total 50 750 Output Total 125 Balance 50 625 Meds/Results Medications: Active Medications Generic Name Dose Route Start Last Admin Trade Name Freq PRN Reason Stop Dose Admin Acetaminophen 650 mg 03/28/24 23:12 Acetaminophen 325 Mg Tablet PO Q6H PRN Mild Pain (1-3) or Fever Albuterol 2 puff 03/28/24 23:13 Albuterol Sulfate (*Sp) Aerosol 1 Puff INHALATION QID PRN SOB or wheezing Ascorbic Acid 500 mg 03/29/24 09:00 Ascorbic Acid 500 Mg Tablet PO DAILY [facility] Atorvastatin Calcium 40 mg 03/29/24 21:00 Atorvastatin 40 Mg Tablet PO HS [facility] Dextrose 12.5 gm 03/28/24 23:12 Dextrose 50% 25 Gm/50 Ml Syringe IV PUSH PRN PRN Hypoglycemia Protocol Ferrous Sulfate 325 mg 03/29/24 09:00 Ferrous Sulfate [address] BY MOUTH BID EPIFANIO Gabapentin 100 mg 03/29/24 06:00 03/29/24 05:53 Gabapentin 100 Mg Capsule PO 100 mg Q8HR EPIFANIO Administration Glucagon 1 mg 03/28/24 23:12 Glucagon For Inj 1 Mg Vial IM PRN PRN Hypoglycemia Protocol Glucose 15 gm 03/28/24 23:12 Glucose Oral Gel 15 Gm Of Glucse In 37.5 Gm Tube PO PRN PRN Hypoglycemia Protocol Hydralazine HCl 25 mg 03/29/24 06:00 03/29/24 05:56 Hydralazine Hcl 25 Mg Tablet PO 25 mg Q8HR [facility] Administration Metronidazole 500 mg in 100 mls @ 100 mls/hr 03/29/24 06:00 03/29/24 06:56 Flagyl 500 Mg/Iso Soln 100 Ml IVPB Infused Q8H [facility] Infusion Dextrose 1,000 mls @ 100 mls/hr 03/28/24 23:12 Dextrose 5% 1,000 Ml IVPB PRN PRN Hypoglycemia Protocol Cefepime HCl 1 gm in 50 mls @ 100 mls/hr 03/29/24 01:00 03/29/24 02:06 Maxipime 1 Gm/Ns 50 Ml IVPB Infused Q24H [facility] Infusion Vancomycin HCl 1,500 mg in 500 mls @ 250 mls/hr 03/30/24 14:00 Vancomycin 1,500 Mg/Ns 500 Ml IVPB Q36H [facility] Insulin Aspart 3 - 6 units 03/29/24 08:00 Insulin Aspart (*Bkc) 100 Units/Ml SUB-Q TIDWM [facility] Protocol Insulin Aspart 2 - 5 units 03/29/24 00:00 03/29/24 05:56 Insulin Aspart (*Bkc) 100 Units/Ml SUB-Q Not Given Q6HR [facility] Protocol Insulin Glargine 18 units 03/29/24 21:00 Insulin Glargine (*Bkc) 100 Units/Ml SUB-Q HS [facility] Loratadine 10 mg 03/29/24 09:00 Loratadine 10 Mg Tablet PO QAM [facility] Metoprolol Tartrate 25 mg 03/29/24 09:00 Metoprolol Tartrate 25 Mg Tablet PO Q12HR [facility] Multivitamins Therapeutic 1 tablet 03/29/24 09:00 Multivitamins Therapeutic Tab (*Bkc) PO DAILY [facility] Ondansetron HCl 4 mg 03/28/24 20:27 Ondansetron Inj 4 Mg/2 Ml Vial IV PUSH Q4H PRN Nausea Pantoprazole Sodium 40 mg 03/29/24 09:00 Pantoprazole 40 Mg Tablet PO QAM [facility] Polyethylene Glycol 17 gm 03/29/24 09:00 Polyethylene Glycol 3350 17 Gm Powd.Pack PO DAILY [facility] Senna/Docusate Sodium 1 tab 03/29/24 09:00 Senna/Docusate Sodium Tablet PO DAILY [facility] Tramadol HCl 50 mg 03/28/24 23:13 Tramadol Hcl (*Crx) 50 Mg Tablet PO BID PRN Pain 4-6 Verapamil HCl 40 mg 03/28/24 23:15 03/29/24 05:53 Verapamil Hcl 40 Mg Tablet PO 40 mg Q8HR EPIFANIO Administration Radiology Results: ITS Impressions Pelvis CT 03/28/24 17:59 IMPRESSION: 1. 3.4 x 1.5 cm subcutaneous abscess in the left buttock. 2. Cystitis. Labs Labs: Laboratory Results - last 24 hr 03/28/24 03/28/24 03/29/24 15:30 20:18 01:36 WBC 12.0 H RBC 2.91 L Hgb 8.1 L Hct 26.0 L MCV 89.3 MCH 27.8 MCHC 31.2 L RDW 22.5 H Plt Count 376 H MPV 12.0 H Immature Gran % (Auto) Not Reportable Neut % (Auto) Not Reportable Lymph % (Auto) Not Reportable [place] % (Auto) Not Reportable Eos % (Auto) Not Reportable Baso % (Auto) Not Reportable Lymph # (Auto) Not Reportable [place] # (Auto) Not Reportable Eos # (Auto) Not Reportable Baso # (Auto) Not Reportable Abs Immat Gran (auto) Not Reportable Absolute Neuts (auto) Not Reportable Absolute Nucleated RBC Not Reportable Total Counted 100 Neutrophils % (Manual) 70 Band Neutrophils % 4 Lymphocytes % (Manual) 19.0 Monocytes % (Manual) 7 Nucleated RBC % Not Reportable Abs Neuts (Manual) 8.88 H Abs Lymphs (Manual) 2.28 Abs Monocytes (Manual) 0.84 Platelet Estimate Adequate Hypochromasia 1+ Anisocytosis 3+ Schistocytes Rare ESR 124 H PT 14.0 INR 1.1 APTT 33.9 Sodium 138 Potassium 3.7 Chloride 103 Carbon Dioxide 26 Anion Gap 9 BUN 27 H D Creatinine 1.30 H Estim Creat Clear Calc 29 Estimated GFR 39 L Glucose 250 H POC Capillary Glucose 138 H Hemoglobin A1c 6.9 H Lactic Acid 1.0 Calcium 8.6 Magnesium Total Bilirubin 0.8 AST 40 H ALT 37 H Alkaline Phosphatase 78 C-Reactive Protein 8.9 H Total Protein 7.0 Albumin 3.2 L Urine Color Yellow Urine Appearance Turbid H Urine pH 8.0 Ur Specific [place] > 1.045 H Urine Protein 2+ H Urine Glucose (UA) Negative Urine Ketones Negative Ur Blood (Man) 1+ H Urine Nitrate Negative Urine Bilirubin Negative Urine Urobilinogen 0.2 Add Ur Microanalysis Reviewed Leukocyte Esterase Rfl 3+ H Urine RBC 11-20 H Urine WBC >100 H Ur Squamous Epith Cells None seen Urine Bacteria 4+ Urine Casts >20 03/29/24 03/29/24 04:29 05:47 WBC 12.8 H RBC 2.64 L Hgb 7.4 L Hct 23.6 L MCV 89.4 MCH 28.0 MCHC 31.4 L RDW 22.7 H Plt Count 344 MPV 11.9 H Immature Gran % (Auto) Neut % (Auto) Lymph % (Auto) [place] % (Auto) Eos % (Auto) Baso % (Auto) Lymph # (Auto) [place] # (Auto) Eos # (Auto) Baso # (Auto) Abs Immat Gran (auto) Absolute Neuts (auto) Absolute Nucleated RBC Total Counted Neutrophils % (Manual) Band Neutrophils % Lymphocytes % (Manual) Monocytes % (Manual) Nucleated RBC % Abs Neuts (Manual) Abs Lymphs (Manual) Abs Monocytes (Manual) Platelet Estimate Hypochromasia Anisocytosis Schistocytes ESR PT INR APTT Sodium 137 Potassium 3.8 Chloride 105 Carbon Dioxide 26 Anion Gap 6 BUN 25 H Creatinine 1.30 H Estim Creat Clear Calc 28 Estimated GFR 39 L Glucose 106 POC Capillary Glucose 109 H Hemoglobin A1c Lactic Acid Calcium 8.3 L Magnesium 1.5 L Total Bilirubin 0.8 AST 33 ALT 34 Alkaline Phosphatase 73 C-Reactive Protein Total Protein 6.0 L Albumin 2.9 L Urine Color Urine Appearance Urine pH Ur Specific [place] Urine Protein Urine Glucose (UA) Urine Ketones Ur Blood (Man) Urine Nitrate Urine Bilirubin Urine Urobilinogen Add Ur Microanalysis Leukocyte Esterase Rfl Urine RBC Urine WBC Ur Squamous Epith Cells Urine Bacteria Urine Casts Quality VTE Prophylaxis VTE prophylaxis: mechanical ordered
[2024-03-29 08:03] LABS: Glucose Point of Care 123 mg/dl (65-105)
[2024-03-29 08:27] VITALS: PULSE 72
[2024-03-29] MEDS: FERROUS SULFATE 325 MG TABLET DR BY MOUTH ×2 (08:27→16:46)
[2024-03-29] MEDS: METOPROLOL TARTRATE 25 MG TABLET PO ×2 (08:27→21:05)
[2024-03-29] MEDS: MULTIVITAMINS THERAPEUTIC TAB (*BKC) 1 TABLET PO (08:27)
[2024-03-29] MEDS: ASCORBIC ACID 500 MG TABLET PO (08:27)
[2024-03-29] MEDS: PANTOPRAZOLE 40 MG TABLET PO (08:28)
[2024-03-29] MEDS: LORATADINE 10 MG TABLET PO (08:28)
[2024-03-29] MEDS: SENNA/DOCUSATE SODIUM TABLET 1 TAB PO (08:28)
[2024-03-29 08:35] VITALS: RESP 18; O2SAT 96
[2024-03-29] MEDS: traMADol HCL (*CRX) 50 MG TABLET PO (08:35)
[2024-03-29 09:27] VITALS: BMI 29.1
[2024-03-29 11:17] LABS: Glucose Point of Care 203 mg/dl (65-105)
[2024-03-29] MEDS: INSULIN ASPART (*BKC) 100 UNITS/ML SUB-Q (11:22)
[2024-03-29 14:00] VITALS: BP 129/58; PULSE 70; RESP 18; TEMP 35.7; O2SAT 96
--- NOTE | 2024-03-29 14:56 | PM.CNGS ---
Assessment and Plan Assessment and plan (1) Left buttock abscess: Code(s): L02.31 - Cutaneous abscess of buttock Status: Acute Assessment and Plan: Patient appears to have a left buttock abscess that has necrotic tissue within the base. This area needs to be opened further and debrided to healthy-appearing tissue. Have recommended debridement left gluteal wound in the OR under anesthesia. Will plan for surgery tomorrow. Patient will be made NPO after midnight. Continue current broad-spectrum IV antibiotics. (2) Chronic kidney disease, stage 3: Code(s): N18.30 - Chronic kidney disease, stage 3 unspecified Status: Acute (3) Insulin dependent type 2 diabetes mellitus: Code(s): E11.9 - Type 2 diabetes mellitus without complications; Z79.4 - terminal superintendent (current) use of insulin Status: Acute (4) Hypertension: Code(s): I10 - Essential (primary) hypertension Status: Acute (5) Obstructive sleep apnea: Code(s): G47.33 - Obstructive sleep apnea (adult) (pediatric) Status: Acute History of Present Illness Consult details Consult date: 03/29/24 Reason for consult: other (gluteal wound) Requesting physician: Neyda Gómez PA-C Narrative: This is an 88-year-old woman who I am asked to see for a left buttock wound. She is a resident of a longterm and is bed ridden. She began developing a wound in the left buttock region about 2 weeks ago and this progressively worsened. Just a few days ago the noticed that it ruptured and drained. She was sent to the emergency department for further evaluation. She is diabetic and has history of hypertension and chronic kidney disease. A CT of her pelvis was performed in the emergency department and this showed evidence of the wound on the left buttock region but no deep tunneling or signs of osteomyelitis. Review of Systems Review of Systems: All systems reviewed & are unremarkable except as noted in HPI and below Eyes: Eyes: Denies change in vision ENT: Denies hearing loss, Denies neck pain and Denies sore throat Cardiovascular: Cardiovascular: Denies chest pain and Denies dyspnea Respiratory: Respiratory: Denies cough, Denies dyspnea and Denies wheezing Gastrointestinal: Gastrointestinal: Denies abdominal pain and Denies vomiting Genitourinary: Genitourinary: Denies hematuria and Denies dysuria Musculoskeletal: Musculoskeletal: Denies arthralgias, Denies joint swelling and Denies neck pain Allergic/Immunologic: Allergic/Immunologic: Denies wheezing [facility] Past Medical History Medical History (Updated 03/28/24 @ 23:39 by Neyda Gómez PA-C) Cancer of right breast Chronic kidney disease, stage 3 Chronic obstructive pulmonary disease Deep venous thrombosis Hypertension Insulin dependent type 2 diabetes mellitus Iron deficiency anemia Obstructive sleep apnea previously on ASV Osteopenia Peripheral arterial disease Pulmonary nodules Stable Last CT-Scan 03/08/2017. Surgical History Surgical History History of carotid endarterectomy History of cholecystectomy Family History Family History Mother Family history of diabetes mellitus in first degree relative Family history of malignant neoplasm of uterus, Onset Age: 48 Hypertension, Onset Age: 92 Family history of malignant neoplasm of ovary Diabetes mellitus, Onset Age: 92 Family history of cardiovascular disease, Onset Age: 92 Father Family history of heart disease in male family member before age 55 Hypertension, Onset Age: 75 Family history of cardiovascular disease, Onset Age: 75 Sibling Diabetes mellitus Other Family history of malignant neoplasm of male breast Social History Social History Social History: Surrogate medical decision maker: Joan Westbrook, friend. Code status: Do not resuscitate. Smoking status: Never smoker Alcohol intake: never Do You Feel Safe in your Home?: Yes Lack of Transportation: No Lack of Food: Never True Current Housing: I Have Housing Concerned About Future Housing: No Difficulty Paying Gas/Electric Bills: No Difficulty Paying for Meds: No Currently Unemployed: No Education: High School Diploma/GED Difficulty w/ Childcare or Family Care: No Spiritual care concerns: No Meds Home Medications and Allergies Home Medications Medication Instructions Recorded Confirmed Type ferrous sulfate 325 mg (65 mg 325 mg PO BID 05/31/19 03/28/24 History iron) tablet Lantus Solostar U-100 Insulin 18 units subcut HS 03/08/21 03/28/24 History Dextrose Gel 15 g PO Q15M PRN Hypoglycemia 03/26/21 03/28/24 History atorvastatin 40 mg tablet 40 mg PO HS 03/26/21 03/28/24 History fexofenadine 60 mg tablet (Alise 60 mg PO Q12H 03/26/21 03/28/24 History Allergy) glucagon HCl 1 mg solution for 1 mg subcut Q20M PRN Hypoglycemia 03/26/21 03/28/24 History injection (Glucagon (HCl) Emergency Kit) hydralazine 25 mg tablet 25 mg PO TID 03/26/21 03/28/24 History ipratropium 0.5 mg-albuterol 3 mg 3 ml inhalation QID PRN Shortness 03/26/21 03/28/24 History (2.5 mg base)/3 mL nebulization Of Breath soln metoprolol tartrate 25 mg tablet 25 mg PO BID 03/26/21 03/28/24 History albuterol sulfate 90 mcg/actuation 2 puff inhalation QID PRN SOB or 03/28/24 03/28/24 History aerosol inhaler wheezing ascorbic acid (vitamin C) 500 mg 500 mg PO DAILY 03/28/24 03/28/24 History tablet benzonatate 100 mg capsule 100 mg PO TID 03/28/24 03/28/24 History gabapentin 100 mg capsule 100 mg PO TID 03/28/24 03/28/24 History gentamicin 0.1 % topical cream 1 applic topical PRN PRN Wound Care 03/28/24 03/28/24 History guaifenesin 600 mg tablet, 600 mg PO Q8H 03/28/24 03/28/24 History extended release 12 hr (Mucinex) insulin aspart U-100 100 unit/mL 1 sliding scale dose subcut 03/28/24 03/28/24 History subcutaneous solution (Novolog USEASDIRECTD U-100 Insulin aspart) multivitamin 1 tablet PO DAILY 03/28/24 03/28/24 History naloxone 4 mg/actuation nasal 1 spray intranasal Q2-3M PRN 03/28/24 03/28/24 History spray (Narcan) Opioid Overdose ondansetron 4 mg disintegrating 4 mg PO Q8H PRN Nausea 03/28/24 03/28/24 History tablet pantoprazole 40 mg tablet,delayed 40 mg PO QAM 03/28/24 03/28/24 History release polyethylene glycol 3350 17 17 g PO DAILY 03/28/24 03/28/24 History gram/dose oral powder (Miralax) sennosides 8.6 mg-docusate sodium 1 tab-cap PO DAILY 03/28/24 03/28/24 History 50 mg tablet (Senna with Docusate Sodium) tramadol 50 mg tablet 50 mg PO BID PRN Pain 03/28/24 03/28/24 History verapamil 40 mg tablet 40 mg PO Q8H 03/28/24 03/28/24 History Allergies Allergy/AdvReac Type Severity Reaction Status Date / Time morphine Allergy Unknown Verified 03/28/24 19:46 tramadol Allergy Unknown Verified 03/28/24 19:46 Vital Signs Vital Signs - 24 hr 03/28/24 16:30 03/28/24 15:32 03/28/24 16:32 Temperature 97.8 F Pulse Rate 74 74 74 Respiratory Rate 20 22 H 24 H Blood Pressure 151/74 H 152/46 H 147/52 H Pulse Oximetry 99 95 96 Oxygen Delivery 03/28/24 17:30 03/28/24 20:01 03/28/24 21:25 Temperature Pulse Rate 79 82 83 Respiratory Rate 18 12 18 Blood Pressure 182/67 H 182/67 H 175/56 H Pulse Oximetry 98 98 96 Oxygen Delivery 03/28/24 21:50 03/28/24 21:26 03/29/24 05:34 Temperature 96.7 F L 98.1 F Pulse Rate 103 H 70 Respiratory Rate 20 18 Blood Pressure 117/63 149/57 H Pulse Oximetry 98 96 Oxygen Delivery Room Air 03/29/24 08:27 03/29/24 08:35 03/29/24 14:00 Temperature 96.3 F L Pulse Rate 72 70 Respiratory Rate 18 18 Blood Pressure 129/58 L Pulse Oximetry 96 96 Oxygen Delivery Room Air Exam Const: General: alert; No acute distress Orientation/consciousness: patient oriented x3 Limitations: physical limitations HENMT: Head: normocephalic and atraumatic Ears: hearing grossly normal bilaterally Face/Nose/Sinus: Normal external nose present and Normal nares present Mouth: Yes Normal oral and palatal mucosa present and Yes moist mucous membranes Eyes: General: appearance normal, both eyes and all related structures Conjunctivae: conjunctivae normal Sclera: sclerae normal Pupils: Equal, round and reactive pupils present EOM: EOMs intact bilaterally Neck: Neck: normal visual inspection, full ROM, no lymphadenopathy, supple and no JVD Lymphatic: no lymphadenopathy noted Chest: Chest palpation & inspection: normal inspection of the chest Resp: Effort & Inspection: normal respiratory effort and able to speak in complete sentences Auscultation: clear to auscultation bilaterally Percussion: percussion normal Cardio: Jugular venous distension: no JVD Rate: regular rate Rhythm: regular rhythm Heart sounds: S1 normal heart sound present and S2 normal heart sound present Peripheral pulses: Peripheral pulses 2+ throughout GI: Inspection: normal to inspection GI Palp: No abdominal tenderness, Yes Soft to palpation, No Guarding due to palpation present (GI), No Hernia present and No Rebound tenderness present Percussion: Yes normal to percussion Auscultation: normal bowel sounds Other: Left gluteal wound with necrotic tissue and purulence fluid. The wound measures about 3 cm x 4 cm. Mild surrounding erythema. : General: Yes no CVA tenderness Back/Spine/Pelvis: Back: no CVA tenderness Skin: General skin exam: normal color and dry skin Neuro: General: patient oriented x3, gait normal, moves all extremities, no focal motor deficits and CN's II-XI intact bilaterally Cranial nerves: Yes Equal, round and reactive pupils present Speech: normal speech Extrem: General: normal to inspection and capillary refill normal Results Labs 03/29/24 04:29 03/29/24 04:29 Labs: Abnormal lab results 03/28/24 03/28/24 03/29/24 Range/Units 15:30 20:18 01:36 WBC 12.0 H (4.5-10.0) K/mm3 RBC 2.91 L (4.2-5.4) M/mm3 Hgb 8.1 L (12.0-15.0) g/dL Hct 26.0 L (37.0-47.0) % MCHC 31.2 L (32-36) g/dl RDW 22.5 H (11.5-14.5) % Plt Count 376 H (150-375) k/mm3 MPV 12.0 H (7.4-10.4) fl Abs Neuts (Manual) 8.88 H (1.7-7.2) K/mm3 ESR 124 H (0-20) mm/hr BUN 27 H D (7-17) mg/dL Creatinine 1.30 H (0.7-1.0) mg/dL Estimated GFR 39 L (59 - ) Glucose 250 H (65-110) mg/dL POC Capillary Glucose 138 H (65-105) mg/dl Hemoglobin A1c 6.9 H (<5.7) % Calcium (8.4-10.2) mg/dL Magnesium (1.6-2.3) mg/dL AST 40 H (14-36) U/L ALT 37 H (6-35) U/L C-Reactive Protein 8.9 H (<1.0) mg/dL Total Protein (6.3-8.2) g/dL Albumin 3.2 L (3.5-5.1) g/dL Urine Appearance Turbid H (Clear) Ur Specific [place] > 1.045 H (1.001-1.035) Urine Protein 2+ H (Negative) mg/dL Ur Blood (Man) 1+ H (Negative) Leukocyte Esterase Rfl 3+ H (Negative) MELVIN/UL Urine RBC 11-20 H (0-2) /hpf Urine WBC >100 H (0-3) /hpf 03/29/24 03/29/24 03/29/24 Range/Units 04:29 05:47 07:51 WBC 12.8 H (4.5-10.0) K/mm3 RBC 2.64 L (4.2-5.4) M/mm3 Hgb 7.4 L (12.0-15.0) g/dL Hct 23.6 L (37.0-47.0) % MCHC 31.4 L (32-36) g/dl RDW 22.7 H (11.5-14.5) % Plt Count (150-375) k/mm3 MPV 11.9 H (7.4-10.4) fl Abs Neuts (Manual) (1.7-7.2) K/mm3 ESR (0-20) mm/hr BUN 25 H (7-17) mg/dL Creatinine 1.30 H (0.7-1.0) mg/dL Estimated GFR 39 L (59 - ) Glucose (65-110) mg/dL POC Capillary Glucose 109 H 123 H (65-105) mg/dl Hemoglobin A1c (<5.7) % Calcium 8.3 L (8.4-10.2) mg/dL Magnesium 1.5 L (1.6-2.3) mg/dL AST (14-36) U/L ALT (6-35) U/L C-Reactive Protein (<1.0) mg/dL Total Protein 6.0 L (6.3-8.2) g/dL Albumin 2.9 L (3.5-5.1) g/dL Urine Appearance (Clear) Ur Specific [place] (1.001-1.035) Urine Protein (Negative) mg/dL Ur Blood (Man) (Negative) Leukocyte Esterase Rfl (Negative) MELVIN/UL Urine RBC (0-2) /hpf Urine WBC (0-3) /hpf 03/29/24 Range/Units 11:05 WBC (4.5-10.0) K/mm3 RBC (4.2-5.4) M/mm3 Hgb (12.0-15.0) g/dL Hct (37.0-47.0) % MCHC (32-36) g/dl RDW (11.5-14.5) % Plt Count (150-375) k/mm3 MPV (7.4-10.4) fl Abs Neuts (Manual) (1.7-7.2) K/mm3 ESR (0-20) mm/hr BUN (7-17) mg/dL Creatinine (0.7-1.0) mg/dL Estimated GFR (59 - ) Glucose (65-110) mg/dL POC Capillary Glucose 203 H (65-105) mg/dl Hemoglobin A1c (<5.7) % Calcium (8.4-10.2) mg/dL Magnesium (1.6-2.3) mg/dL AST (14-36) U/L ALT (6-35) U/L C-Reactive Protein (<1.0) mg/dL Total Protein (6.3-8.2) g/dL Albumin (3.5-5.1) g/dL Urine Appearance (Clear) Ur Specific [place] (1.001-1.035) Urine Protein (Negative) mg/dL Ur Blood (Man) (Negative) Leukocyte Esterase Rfl (Negative) MELVIN/UL Urine RBC (0-2) /hpf Urine WBC (0-3) /hpf Diabetes panel 03/28/24 03/29/24 Range/Units 15:30 04:29 Sodium 138 137 (137-145) mmol/L Potassium 3.7 3.8 (3.4-5.0) mmol/L Chloride 103 105 (98-107) mmol/L Carbon Dioxide 26 26 (22-30) mmol/L BUN 27 H D 25 H (7-17) mg/dL Creatinine 1.30 H 1.30 H (0.7-1.0) mg/dL Glucose 250 H 106 (65-110) mg/dL Hemoglobin A1c 6.9 H (<5.7) % Calcium 8.6 8.3 L (8.4-10.2) mg/dL AST 40 H 33 (14-36) U/L ALT 37 H 34 (6-35) U/L Alkaline Phosphatase 78 73 (38-126) U/L Total Protein 7.0 6.0 L (6.3-8.2) g/dL Albumin 3.2 L 2.9 L (3.5-5.1) g/dL Calcium panel 03/28/24 03/29/24 Range/Units 15:30 04:29 Calcium 8.6 8.3 L (8.4-10.2) mg/dL Albumin 3.2 L 2.9 L (3.5-5.1) g/dL Pituitary panel 03/28/24 03/29/24 Range/Units 15:30 04:29 Sodium 138 137 (137-145) mmol/L Potassium 3.7 3.8 (3.4-5.0) mmol/L Chloride 103 105 (98-107) mmol/L Carbon Dioxide 26 26 (22-30) mmol/L BUN 27 H D 25 H (7-17) mg/dL Creatinine 1.30 H 1.30 H (0.7-1.0) mg/dL Glucose 250 H 106 (65-110) mg/dL Calcium 8.6 8.3 L (8.4-10.2) mg/dL Adrenal panel 03/28/24 03/29/24 Range/Units 15:30 04:29 Sodium 138 137 (137-145) mmol/L Potassium 3.7 3.8 (3.4-5.0) mmol/L Chloride 103 105 (98-107) mmol/L Carbon Dioxide 26 26 (22-30) mmol/L BUN 27 H D 25 H (7-17) mg/dL Creatinine 1.30 H 1.30 H (0.7-1.0) mg/dL Glucose 250 H 106 (65-110) mg/dL Calcium 8.6 8.3 L (8.4-10.2) mg/dL Total Bilirubin 0.8 0.8 (0.2-1.3) mg/dL AST 40 H 33 (14-36) U/L ALT 37 H 34 (6-35) U/L Alkaline Phosphatase 78 73 (38-126) U/L Total Protein 7.0 6.0 L (6.3-8.2) g/dL Albumin 3.2 L 2.9 L (3.5-5.1) g/dL All other labs normal. Imaging Additional studies: ITS Impressions Pelvis CT 03/28/24 17:59 IMPRESSION: 1. 3.4 x 1.5 cm subcutaneous abscess in the left buttock. 2. Cystitis.
[2024-03-29 16:43] LABS: Glucose Point of Care 161 mg/dl (65-105)
[2024-03-29 20:35] VITALS: BP 149/50; PULSE 76; RESP 16; TEMP 36.6; O2SAT 94
[2024-03-29 21:05] VITALS: PULSE 76
[2024-03-29] MEDS: ATORVASTATIN 40 MG TABLET PO (21:05)
[2024-03-29] MEDS: INSULIN GLARGINE (*BKC) 100 UNITS/ML 18 UNITS SUB-Q (21:07)
[2024-03-29 23:07] LABS: Glucose Point of Care 257 mg/dl (65-105)
[2024-03-30] VITALS (13 sets, daily range): BP systolic 138–179; BP diastolic 38–68; PULSE 69–74; RESP 12–19; TEMP 36.4–36.8; O2SAT 94–100
[2024-03-30] MEDS: CEFEPIME 1 GM/NS 50 ML 1 GM/50 ML BAG IVPB (00:50)
[2024-03-30 05:45] LABS: Estimated CRCL calculation 20 ml/min; Estimated Glomerular Filt Rate 27
[2024-03-30] MEDS: metroNIDAZOLE 500 MG/ISO 100ML 500 MG/100 ML BAG 100 MG IVPB ×3 (05:45→21:50)
[2024-03-30] MEDS: hydrALAZINE HCL 25 MG TABLET PO ×2 (05:46→21:51)
[2024-03-30] MEDS: VERAPAMIL HCL 40 MG TABLET PO ×2 (05:46→21:51)
[2024-03-30] MEDS: GABAPENTIN 100 MG CAPSULE PO ×2 (05:46→21:51)
--- NOTE | 2024-03-30 06:54 | P.PNIM_ITS ---
Progress Note: A&P Assessment and Plan (1) Left buttock abscess: Code(s): L02.31 - Cutaneous abscess of buttock Status: Acute Assessment and Plan: Patient presents with an open pressure ulcer draining foul smelling, purulent fluid with surrounding erythema, induration, warmth and tenderness to palpation. - Pelvis CT: 3.4 x 1.5 cm subcutaneous abscess in the left buttock. - Blood cultures collected on 03/28: gram positive cocci cluster - Antibiotics: Vanc, cefe, flagyl started on 03/29 - Monitor vital signs, I&Os, neuro status and patient is a fall risk - Monitor serum electrolytes, CBC, cultures, WBC and temp curve - Patient made NPO overnight for possible debridement today - Surgery consulted, scheduled for surgical debridement of wound today (2) Abnormal urinalysis: Code(s): R82.90 - Unspecified abnormal findings in urine Status: Acute Assessment and Plan: - UA: turbid appearance, > 1.045 specific gravity, 2+ protein, 1+ blood, 3+ leukocytes, 11-20 RBC, > 100 WBC, 4+ bacteria - UC obtained on 03/28: pending - No previous micro to be reviewed - started on cefepime on 03/29 as patient has cocurrent abscess (3) Insulin dependent type 2 diabetes mellitus: Code(s): E11.9 - Type 2 diabetes mellitus without complications; Z79.4 - terminal operator (current) use of insulin Status: Acute Assessment and Plan: - hypoglycemia protocol - POC blood glucose ACHS - home medication - 18 units lantus HS and SSI with meals - correct regimen ordered - lantus 18 units HS and moderate SSI TIDWM - A1C 6.9 (4) Hypertension: Code(s): I10 - Essential (primary) hypertension Status: Acute Assessment and Plan: Chronic, continue home medications. - hydralazine 25 mg TID - metoprolol 25 mg BID - verapamil 40 mg q8H - monitor (5) Chronic kidney disease, stage 3: Code(s): N18.30 - Chronic kidney disease, stage 3 unspecified Status: Acute Assessment and Plan: BUN/Cr 27/1.3 with GFR 39 on admission. Appears at baseline 1.3-2.2 per chart review. - BUN/Cr 29/1.8 on am labs - Monitor I/O and renal function - Avoid nephrotoxic medications - Renally dose medications (6) Iron deficiency anemia: Code(s): D50.9 - Iron deficiency anemia, unspecified Status: Acute Assessment and Plan: Chronic, continue iron supplementation. - Monitor (7) Obstructive sleep apnea: Code(s): G47.33 - Obstructive sleep apnea (adult) (pediatric) Status: Acute Assessment and Plan: - previously on ASV for complex sleep apnea though it does not sound as though she is wearing that any longer Time Spent With Patient Time with patient: 25 - 35 minutes Subjective Date/time seen: 03/30/24 06:54 Interval history: 88-year-old female with insulin-dependent diabetes, hypertension, hyperlipidemia, gastroesophageal reflux disease, iron deficiency anemia, and chronic kidney disease who presented to the emergency department [facility] for evaluation of a left buttock wound. Patient is pleasant lying comfortably in bed. She states that her pain is well controlled at this time and she has no complaints. She denies chest pain, shortness of breath, nausea/vomiting and abdominal pain. Patient is scheduled for surgical debridement today. Review of Systems Review of Systems: All systems reviewed & are unremarkable except as noted in HPI and below Exam Narrative: AF HR 72 RR 16 SpO2 96 BP 174/68 General: female in no acute respiratory distress who is nontoxic appearing, lying semi recumbent in bed. Chest: Lungs are clear to auscultation bilaterally. No wheezes or crackles. CV: Heart was regular rate and rhythm. S1-S2. No murmurs, gallops, or rubs. Abd: Abdomen was soft. Nontender. Nondistended. Positive bowel sounds. No organomegaly or masses. Neuro: Patient is alert and oriented x3. Speech is clear. Psych: Normal mood and affect. Patient is pleasant and cooperative. Skin: open pressure ulcer of the left buttocks draining foul smelling, purulent fluid with surrounding erythema, induration, and tenderness to palpation. Objective Data Vital Signs Vital Signs: Vital Signs - 24 hr 03/29/24 08:27 03/29/24 08:35 03/29/24 14:00 Temperature 96.3 F L Pulse Rate 72 70 Respiratory Rate 18 18 Blood Pressure 129/58 L Pulse Oximetry 96 96 Oxygen Delivery Room Air 03/29/24 20:35 03/29/24 21:05 03/29/24 20:00 Temperature 97.8 F Pulse Rate 76 76 Respiratory Rate 16 Blood Pressure 149/50 H Pulse Oximetry 94 Oxygen Delivery Room Air 03/30/24 05:46 Temperature 97.6 F Pulse Rate 72 Respiratory Rate 16 Blood Pressure 174/68 H Pulse Oximetry 96 Oxygen Delivery Intake/Output Intake/Output: Intake & Output 03/27/24 03/28/24 03/29/24 03/30/24 23:59 23:59 23:59 23:59 Intake Total 50 1190 450 Output Total 825 200 Balance 50 365 250 Meds/Results Medications: Active Medications Generic Name Dose Route Start Last Admin Trade Name Freq PRN Reason Stop Dose Admin Acetaminophen 650 mg 03/28/24 23:12 Acetaminophen 325 Mg Tablet PO Q6H PRN Mild Pain (1-3) or Fever Albuterol 2 puff 03/28/24 23:13 Albuterol Sulfate (*Sp) Aerosol 1 Puff INHALATION QID PRN SOB or wheezing Ascorbic Acid 500 mg 03/29/24 09:00 03/29/24 08:27 Ascorbic Acid 500 Mg Tablet PO 500 mg DAILY EPIFANIO Administration Atorvastatin Calcium 40 mg 03/29/24 21:00 03/29/24 21:05 Atorvastatin 40 Mg Tablet PO 40 mg HS EPIFANIO Administration Dextrose 12.5 gm 03/28/24 23:12 Dextrose 50% 25 Gm/50 Ml Syringe IV PUSH PRN PRN Hypoglycemia Protocol Ferrous Sulfate 325 mg 03/29/24 09:00 03/29/24 16:46 Ferrous Sulfate [address] BY MOUTH 325 mg BID EPIFANIO Administration Gabapentin 100 mg 03/29/24 06:00 03/30/24 05:46 Gabapentin 100 Mg Capsule PO 100 mg Q8HR EPIFANIO Administration Glucagon 1 mg 03/28/24 23:12 Glucagon For Inj 1 Mg Vial IM PRN PRN Hypoglycemia Protocol Glucose 15 gm 03/28/24 23:12 Glucose Oral Gel 15 Gm Of Glucse In 37.5 Gm Tube PO PRN PRN Hypoglycemia Protocol Hydralazine HCl 25 mg 03/29/24 06:00 03/30/24 05:46 Hydralazine Hcl 25 Mg Tablet PO 25 mg Q8HR EPIFANIO Administration Metronidazole 500 mg in 100 mls @ 100 mls/hr 03/29/24 06:00 03/30/24 06:45 Flagyl 500 Mg/Iso Soln 100 Ml IVPB Infused Q8H EPIFANIO Infusion Dextrose 1,000 mls @ 100 mls/hr 03/28/24 23:12 Dextrose 5% 1,000 Ml IVPB PRN PRN Hypoglycemia Protocol Cefepime HCl 1 gm in 50 mls @ 100 mls/hr 03/29/24 01:00 03/30/24 01:20 Maxipime 1 Gm/Ns 50 Ml IVPB Infused Q24H EPIFANIO Infusion Vancomycin HCl 1,500 mg in 500 mls @ 250 mls/hr 03/30/24 14:00 Vancomycin 1,500 Mg/Ns 500 Ml IVPB Q36H EPIFANIO Insulin Aspart 3 - 6 units 03/29/24 08:00 03/29/24 16:45 Insulin Aspart (*Bkc) 100 Units/Ml SUB-Q Not Given TIDWM [facility] Protocol Insulin Glargine 18 units 03/29/24 21:00 03/29/24 21:07 Insulin Glargine (*Bkc) 100 Units/Ml SUB-Q 18 units HS EPIFANIO Administration Loratadine 10 mg 03/29/24 09:00 03/29/24 08:28 Loratadine 10 Mg Tablet PO 10 mg QAM EPIFANIO Administration Metoprolol Tartrate 25 mg 03/29/24 09:00 03/29/24 21:05 Metoprolol Tartrate 25 Mg Tablet PO 25 mg Q12HR EPIFANIO Administration Multivitamins Therapeutic 1 tablet 03/29/24 09:00 03/29/24 08:27 Multivitamins Therapeutic Tab (*Bkc) PO 1 tablet DAILY EPIFANIO Administration Ondansetron HCl 4 mg 03/28/24 20:27 Ondansetron Inj 4 Mg/2 Ml Vial IV PUSH Q4H PRN Nausea Pantoprazole Sodium 40 mg 03/29/24 09:00 03/29/24 08:28 Pantoprazole 40 Mg Tablet PO 40 mg QAM EPIFANIO Administration Polyethylene Glycol 17 gm 03/29/24 09:00 03/29/24 08:28 Polyethylene Glycol 3350 17 Gm Powd.Pack PO Not Given DAILY EPIFANIO Senna/Docusate Sodium 1 tab 03/29/24 09:00 03/29/24 08:28 Senna/Docusate Sodium Tablet PO 1 tab DAILY EPIFANIO Administration Tramadol HCl 50 mg 03/28/24 23:13 03/29/24 08:35 Tramadol Hcl (*Crx) 50 Mg Tablet PO 50 mg BID PRN Administration Pain 4-6 Verapamil HCl 40 mg 03/28/24 23:15 03/30/24 05:46 Verapamil Hcl 40 Mg Tablet PO 40 mg Q8HR EPIFANIO Administration Radiology Results: ITS Impressions Pelvis CT 03/28/24 17:59 IMPRESSION: 1. 3.4 x 1.5 cm subcutaneous abscess in the left buttock. 2. Cystitis. Labs Labs: Laboratory Results - last 24 hr 03/29/24 03/29/24 03/29/24 07:51 11:05 16:32 Creatinine Estim Creat Clear Calc Estimated GFR POC Capillary Glucose 123 H 203 H 161 H 03/29/24 03/30/24 20:40 04:54 Creatinine 1.80 H Estim Creat Clear Calc 20 Estimated GFR 27 L POC Capillary Glucose 257 H Quality VTE Prophylaxis VTE prophylaxis: mechanical ordered
[2024-03-30 07:13] LABS: Basophils Absolute Auto 0.1 K/mm3 (0.0-0.1); Basophils Percent Auto 0.9 % (0.2-1.2); Eosinophils Absolute Auto 0.6 K/mm3 (0-0.3); Eosinophils Percent Auto 5.3 % (0-4.4); Hematocrit 25.5 % (37.0-47.0); Hemoglobin 7.9 g/dL (12.0-15.0); Immature Granulocyte Absolute 0.06 K/mm3 (0.00-0.031); Immature Granulocyte Percent A 0.5 % (0-0.5); Lymphocytes Absolute Auto 1.79 K/mm3 (0.9-3.2); Lymphocytes Percent Auto 16.3 % (18.3-44.2); Mean Corpuscular Hemoglobin 27.8 pg (26-34); Mean Corpuscular Volume 89.8 fl (80-100); Mean Platelet Volume 12.1 fl (7.4-10.4); Neutrophils Absolute Auto 7.5 K/mm3 (1.3-6.7); Platelet Count Result 388 k/mm3 (150-375); Red Blood Count 2.84 M/mm3 (4.2-5.4); Red Cell Distribution Width 23.3 % (11.5-14.5)
[2024-03-30 07:20] LABS: Alanine Aminotransferase 30 U/L (6-35); Albumin Level 3.1 g/dL (3.5-5.1); Alkaline Phosphatase 81 U/L (38-126); Anion Gap 6 mmol/L (4-12); Aspartate Amino Transferase 27 U/L (14-36); Bilirubin,Total 0.5 mg/dL (0.2-1.3); Blood Urea Nitrogen 29 mg/dL (7-17); Calcium 8.7 mg/dL (8.4-10.2); Carbon Dioxide 27 mmol/L (22-30); Chloride 105 mmol/L (98-107); Estimated CRCL calculation 22 ml/min; Estimated Glomerular Filt Rate 28; Glucose 159 mg/dL (65-110); Sodium 138 mmol/L (137-145)
[2024-03-30 07:38] LABS: Anisocytosis 2+; Hypochromasia 2+; Ovalocytes 2+; Platelet Estimate Increased (Adequate); Poikilocytosis 2+; Polychromasia 1+; Schistocytes None Seen; Stomatocytes 1+; Target Cells 1+; Tear Drop Cells 1+
[2024-03-30 08:23] LABS: Glucose Point of Care 163 mg/dl (65-105)
[2024-03-30] MEDS: METOPROLOL TARTRATE 25 MG TABLET PO ×2 (08:36→21:51)
[2024-03-30] MEDS: PANTOPRAZOLE 40 MG TABLET PO (08:36)
[2024-03-30] MEDS: VANCOMYCIN 1,500 MG/NS 500 ML 1,500 MG/500 ML BAG 250 MG IVPB (10:32)
[2024-03-30 11:45] LABS: Glucose Point of Care 153 mg/dl (65-105)
--- NOTE | 2024-03-30 12:15 | PC.NURSE ---
To OR via bed. Family friend at bedside.Report called to Cale ORONA in Preop.
[2024-03-30 13:17] LABS: Glucose Point of Care 132 mg/dl (65-105)
--- NOTE | 2024-03-30 13:40 | WPDANESEPPF ---
Anes - Initial Pre Proc Eval Procedure: Operation Date: 03/30/24 13:30 Proposed Procedures p Debridement Left Gluteal Wound - Vernon Zabala DO Date/Time: 03/30/24 13:40 Surgeon: Vj Pre Op Diagnosis: Infected Pressure Ulcer L Buttocks/Abscess Patient Data Age: 88 Gender: F Height: 1.65 m Weight: 84 kg Last Vital Signs Temp 36.7 C 03/30/24 13:00 Pulse 72 03/30/24 13:00 Resp 14 03/30/24 13:00 BP 170/38 H 03/30/24 13:00 Pulse Ox 94 03/30/24 13:00 O2 Del Method Room Air 03/30/24 13:00 Allergies Allergy/AdvReac Type Severity Reaction Status Date / Time morphine Allergy Unknown Verified 03/30/24 13:13 tramadol Allergy Unknown Verified 03/30/24 13:13 Home Medications Medication Instructions Recorded Confirmed Type ferrous sulfate 325 mg (65 mg 325 mg PO BID 05/31/19 03/28/24 History iron) tablet Lantus Solostar U-100 Insulin 18 units subcut HS 03/08/21 03/28/24 History Dextrose Gel 15 g PO Q15M PRN Hypoglycemia 03/26/21 03/28/24 History atorvastatin 40 mg tablet 40 mg PO HS 03/26/21 03/28/24 History fexofenadine 60 mg tablet (Alise 60 mg PO Q12H 03/26/21 03/28/24 History Allergy) glucagon HCl 1 mg solution for 1 mg subcut Q20M PRN Hypoglycemia 03/26/21 03/28/24 History injection (Glucagon (HCl) Emergency Kit) hydralazine 25 mg tablet 25 mg PO TID 03/26/21 03/28/24 History ipratropium 0.5 mg-albuterol 3 mg 3 ml inhalation QID PRN Shortness 03/26/21 03/28/24 History (2.5 mg base)/3 mL nebulization Of Breath soln metoprolol tartrate 25 mg tablet 25 mg PO BID 03/26/21 03/28/24 History albuterol sulfate 90 mcg/actuation 2 puff inhalation QID PRN SOB or 03/28/24 03/28/24 History aerosol inhaler wheezing ascorbic acid (vitamin C) 500 mg 500 mg PO DAILY 03/28/24 03/28/24 History tablet benzonatate 100 mg capsule 100 mg PO TID 03/28/24 03/28/24 History gabapentin 100 mg capsule 100 mg PO TID 03/28/24 03/28/24 History gentamicin 0.1 % topical cream 1 applic topical PRN PRN Wound Care 03/28/24 03/28/24 History guaifenesin 600 mg tablet, 600 mg PO Q8H 03/28/24 03/28/24 History extended release 12 hr (Mucinex) insulin aspart U-100 100 unit/mL 1 sliding scale dose subcut 03/28/24 03/28/24 History subcutaneous solution (Novolog USEASDIRECTD U-100 Insulin aspart) multivitamin 1 tablet PO DAILY 03/28/24 03/28/24 History naloxone 4 mg/actuation nasal 1 spray intranasal Q2-3M PRN 03/28/24 03/28/24 History spray (Narcan) Opioid Overdose ondansetron 4 mg disintegrating 4 mg PO Q8H PRN Nausea 03/28/24 03/28/24 History tablet pantoprazole 40 mg tablet,delayed 40 mg PO QAM 03/28/24 03/28/24 History release polyethylene glycol 3350 17 17 g PO DAILY 03/28/24 03/28/24 History gram/dose oral powder (Miralax) sennosides 8.6 mg-docusate sodium 1 tab-cap PO DAILY 03/28/24 03/28/24 History 50 mg tablet (Senna with Docusate Sodium) tramadol 50 mg tablet 50 mg PO BID PRN Pain 03/28/24 03/28/24 History verapamil 40 mg tablet 40 mg PO Q8H 03/28/24 03/28/24 History Laboratory Tests 03/29/24 03/29/24 03/30/24 16:32 20:40 04:49 WBC RBC Hgb Hct MCV MCH MCHC RDW Plt Count MPV Immature Gran % (Auto) Neut % (Auto) Lymph % (Auto) [place] % (Auto) Eos % (Auto) Baso % (Auto) Lymph # (Auto) [place] # (Auto) Eos # (Auto) Baso # (Auto) Abs Immat Gran (auto) Absolute Neuts (auto) Absolute Nucleated RBC Nucleated RBC % Platelet Estimate Polychromasia Hypochromasia Poikilocytosis Anisocytosis Target Cells Tear Drop Cells Ovalocytes Stomatocytes Schistocytes Sodium 138 mmol/L (137-145) Potassium 4.0 mmol/L (3.4-5.0) Chloride 105 mmol/L (98-107) Carbon Dioxide 27 mmol/L (22-30) Anion Gap 6 mmol/L (4-12) BUN 29 H mg/dL (7-17) Creatinine 1.70 H mg/dL (0.7-1.0) Estim Creat Clear Calc 22 ml/min Estimated GFR 28 L (59 - ) Glucose 159 H mg/dL (65-110) POC Capillary Glucose 161 H mg/dl 257 H mg/dl (65-105) (65-105) Calcium 8.7 mg/dL (8.4-10.2) Total Bilirubin 0.5 mg/dL (0.2-1.3) AST 27 U/L (14-36) ALT 30 U/L (6-35) Alkaline Phosphatase 81 U/L (38-126) Total Protein 7.0 g/dL (6.3-8.2) Albumin 3.1 L g/dL (3.5-5.1) 03/30/24 03/30/24 03/30/24 04:54 08:00 11:36 WBC 11.0 H K/mm3 (4.5-10.0) RBC 2.84 L M/mm3 (4.2-5.4) Hgb 7.9 L g/dL (12.0-15.0) Hct 25.5 L % (37.0-47.0) MCV 89.8 fl (80-100) MCH 27.8 pg (26-34) MCHC 31.0 L g/dl (32-36) RDW 23.3 H % (11.5-14.5) Plt Count 388 H k/mm3 (150-375) MPV 12.1 H fl (7.4-10.4) Immature Gran % (Auto) 0.5 % (0-0.5) Neut % (Auto) 68.0 % (45.5-73.1) Lymph % (Auto) 16.3 L % (18.3-44.2) [place] % (Auto) 9.0 H % (2.6-8.5) Eos % (Auto) 5.3 H % (0-4.4) Baso % (Auto) 0.9 % (0.2-1.2) Lymph # (Auto) 1.79 K/mm3 (0.9-3.2) [place] # (Auto) 1.0 H K/mm3 (0.1-0.6) Eos # (Auto) 0.6 H K/mm3 (0-0.3) Baso # (Auto) 0.1 K/mm3 (0.0-0.1) Abs Immat Gran (auto) 0.06 H K/mm3 (0.00-0.031) Absolute Neuts (auto) 7.5 H K/mm3 (1.3-6.7) Absolute Nucleated RBC 0.000 K/mm3 (0.0-0.012) Nucleated RBC % 0.0 % (0.0-0.2) Platelet Estimate Increased (Adequate) Polychromasia 1+ Hypochromasia 2+ Poikilocytosis 2+ Anisocytosis 2+ Target Cells 1+ Tear Drop Cells 1+ Ovalocytes 2+ Stomatocytes 1+ Schistocytes None seen Sodium Potassium Chloride Carbon Dioxide Anion Gap BUN Creatinine 1.80 H mg/dL (0.7-1.0) Estim Creat Clear Calc 20 ml/min Estimated GFR 27 L (59 - ) Glucose POC Capillary Glucose 163 H mg/dl 153 H mg/dl (65-105) (65-105) Calcium Total Bilirubin AST ALT Alkaline Phosphatase Total Protein Albumin 03/30/24 13:04 WBC RBC Hgb Hct MCV MCH MCHC RDW Plt Count MPV Immature Gran % (Auto) Neut % (Auto) Lymph % (Auto) [place] % (Auto) Eos % (Auto) Baso % (Auto) Lymph # (Auto) [place] # (Auto) Eos # (Auto) Baso # (Auto) Abs Immat Gran (auto) Absolute Neuts (auto) Absolute Nucleated RBC Nucleated RBC % Platelet Estimate Polychromasia Hypochromasia Poikilocytosis Anisocytosis Target Cells Tear Drop Cells Ovalocytes Stomatocytes Schistocytes Sodium Potassium Chloride Carbon Dioxide Anion Gap BUN Creatinine Estim Creat Clear Calc Estimated GFR Glucose POC Capillary Glucose 132 H mg/dl (65-105) Calcium Total Bilirubin AST ALT Alkaline Phosphatase Total Protein Albumin Patient hx anesthesia problems: none Family hx anesthesia problems: none Results Review: All pre-operative results and documents have been reviewed as part of the pre-operative evaluation. [facility] Past Medical History Medical History (Updated 03/28/24 @ 23:39 by Neyda Gómez PA-C) Cancer of right breast Chronic kidney disease, stage 3 Chronic obstructive pulmonary disease Deep venous thrombosis Hypertension Insulin dependent type 2 diabetes mellitus Iron deficiency anemia Obstructive sleep apnea previously on ASV Osteopenia Peripheral arterial disease Pulmonary nodules Stable Last CT-Scan 03/08/2017. Surgical History Surgical History History of carotid endarterectomy History of cholecystectomy Family History Family History Mother Family history of diabetes mellitus in first degree relative Family history of malignant neoplasm of uterus, Onset Age: 48 Hypertension, Onset Age: 92 Family history of malignant neoplasm of ovary Diabetes mellitus, Onset Age: 92 Family history of cardiovascular disease, Onset Age: 92 Father Family history of heart disease in male family member before age 55 Hypertension, Onset Age: 75 Family history of cardiovascular disease, Onset Age: 75 Sibling Diabetes mellitus Other Family history of malignant neoplasm of male breast Social History Social History Social History: Surrogate medical decision maker: Joan Westbrook, friend. Code status: Do not resuscitate. Smoking status: Never smoker Alcohol intake: never Do You Feel Safe in your Home?: Yes Lack of Transportation: No Lack of Food: Never True Current Housing: I Have Housing Concerned About Future Housing: No Difficulty Paying Gas/Electric Bills: No Difficulty Paying for Meds: No Currently Unemployed: No Education: High School Diploma/GED Difficulty w/ Childcare or Family Care: No Spiritual care concerns: No Anes - Eval Final PreProcedure Day of Procedure 03/30/24 13:40 Patient weight: obese Heart: regular rate and rhythm Lungs: clear to auscultation Airway: Mallampati scale class III and special considerations poor dentition Neurological: alert and oriented Last oral intake: >/= 8 hours ASA classification: IV Emergent: no Anesthetic plan: proceed Anesthesia type and monitoring: general GIVS and standard monitoring Results Review: All pre-operative results and documents have been reviewed as part of the pre-operative evaluation. Informed Consent: The patient's anesthetic plan and its attendant risks and benefits were discussed with the patient/family/POA. Questions were solicited and answers provided to the satisfaction of the patient/family/POA.
--- NOTE | 2024-03-30 14:27 | WPDHPUPDATE1 ---
History and Physical Update Update Date/Time: 03/30/24 14:27 History and Physical has been reviewed, including an updated exam of the patient. There are NO changes in the patient's condition. Risks, benefits, and alternatives have been discussed and questions answered. Patient agrees to proceed with procedure.
[2024-03-30] MEDS: LACTATED RINGERS 1,000 ML 30 ML IV CONT (15:31)
--- NOTE | 2024-03-30 16:01 | W.PM.PROC2 ---
Procedure Note - Detailed Date of Procedure 03/30/24 Pre-op Diagnosis Infected Pressure Ulcer L Buttocks/Abscess Post-op Diagnosis Same Procedure Performed Sharp excisional debridement left gluteal pressure ulcer including skin and subcutaneous fat measuring 4 cm x 3 cm Surgeon Vernon Zabala, DO Anesthesia General and Local (0.5% bupivacaine with epinephrine) Indications This is an 88-year-old woman who presented with a necrotic wound on her left buttock region. It had been there for couple weeks and was progressively worsening. She was found to have a foul-smelling necrotic wound on her left buttock region with necrotic skin and purulent drainage. Discussions were made with the patient about treatment options and decision was made to proceed with debridement of left gluteal wound. Findings Sharp excisional debridement of the left gluteal wound was performed. The necrotic skin and subcutaneous fat was excised using a 15 blade scalpel. The wound did not appear to be involving any deeper tissue. There was some slight tunneling laterally but no other abscess pockets were identified. The wound was irrigated and then packed with 1 in iodoform gauze. The wound measurements were 4 cm x 3 cm. Description of Procedure Procedure as well as risks, benefits, and alternatives were discussed with the patient. Written consent was obtained and placed in chart prior to procedure. Patient was brought back to surgical suite. She was placed supine on operating table. Time-out was done to confirm patient and procedure. She was then intubated by the anesthesia department. She was then repositioned into right lateral decubitus position. Her left buttock region was prepped and draped in sterile fashion using Betadine prep. 0.5% bupivacaine with epinephrine was infiltrated locally around the wound. A 15 blade scalpel was then used to sharply excise the necrotic tissue of the wound. This was excised all the way back to healthy bleeding tissue. There was some healthy pink granulation tissue within the inferior portion of the wound bed. There was also some tunneling out laterally but there did not appear to be any deeper pockets of abscess or other abnormalities. The wound was then irrigated with sterile saline. Hemostasis was achieved with electrocautery. The wound was then packed with 1 in iodoform gauze. Fluff gauze, ABD pad, and tape were then applied. The patient was then awakened from anesthesia, extubated, and transferred to recovery. Estimated Blood Loss 10 Urine Output 700 Packing Yes (1 in iodoform gauze) Complications No immediate complications Condition Stable Disposition Floor [facility] Billing Surgery - Charge Forward: Surgery Billing
[2024-03-30 16:10] LABS: Glucose Point of Care 153 mg/dl (65-105)
--- NOTE | 2024-03-30 16:35 | PC.NURSE ---
Returned from OR via bed. Friends at bedside.
[2024-03-30] MEDS: LACTATED RINGERS 1,000 ML 100 ML IV CONT (16:54)
[2024-03-30] MEDS: ATORVASTATIN 40 MG TABLET PO (21:51)
[2024-03-30] MEDS: INSULIN GLARGINE (*BKC) 100 UNITS/ML 18 UNITS SUB-Q (21:51)
[2024-03-30 21:59] LABS: Glucose Point of Care 147 mg/dl (65-105)
[2024-03-31] VITALS (8 sets, daily range): BP systolic 116–173; BP diastolic 45–56; PULSE 68–75; RESP 12–18; TEMP 36.4–36.8; O2SAT 96–100
[2024-03-31] MEDS: CEFEPIME 1 GM/NS 50 ML 1 GM/50 ML BAG IVPB (00:22)
[2024-03-31 05:14] LABS: Basophils Absolute Auto 0.1 K/mm3 (0.0-0.1); Basophils Percent Auto 1.1 % (0.2-1.2); Eosinophils Absolute Auto 0.4 K/mm3 (0-0.3); Eosinophils Percent Auto 4.5 % (0-4.4); Hematocrit 23.5 % (37.0-47.0); Hemoglobin 7.2 g/dL (12.0-15.0); Immature Granulocyte Absolute 0.09 K/mm3 (0.00-0.031); Lymphocytes Absolute Auto 1.85 K/mm3 (0.9-3.2); Lymphocytes Percent Auto 20.3 % (18.3-44.2); Mean Corpuscular HGB Conc 30.6 g/dl (32-36); Mean Corpuscular Hemoglobin 27.3 pg (26-34); Monocytes Absolute Auto 0.8 K/mm3 (0.1-0.6); Monocytes Percent Auto 8.5 % (2.6-8.5); Neutrophils Absolute Auto 5.9 K/mm3 (1.3-6.7); Neutrophils Percent Auto 64.6 % (45.5-73.1); Platelet Count Result 382 k/mm3 (150-375); Red Blood Count 2.64 M/mm3 (4.2-5.4); Red Cell Distribution Width 22.4 % (11.5-14.5); White Blood Count 9.1 K/mm3 (4.5-10.0)
[2024-03-31 05:23] LABS: Alanine Aminotransferase 26 U/L (6-35); Albumin Level 2.8 g/dL (3.5-5.1); Alkaline Phosphatase 69 U/L (38-126); Anion Gap 6 mmol/L (4-12); Aspartate Amino Transferase 31 U/L (14-36); Bilirubin,Total 0.6 mg/dL (0.2-1.3); Blood Urea Nitrogen 22 mg/dL (7-17); Calcium 8.6 mg/dL (8.4-10.2); Carbon Dioxide 26 mmol/L (22-30); Chloride 107 mmol/L (98-107); Estimated CRCL calculation 25 ml/min; Estimated Glomerular Filt Rate 33; Glucose 102 mg/dL (65-110); Potassium 3.6 mmol/L (3.4-5.0); Sodium 139 mmol/L (137-145)
[2024-03-31] MEDS: VERAPAMIL HCL 40 MG TABLET PO ×3 (05:34→20:59)
[2024-03-31] MEDS: metroNIDAZOLE 500 MG/ISO 100ML 500 MG/100 ML BAG 100 MG IVPB (05:34)
[2024-03-31] MEDS: hydrALAZINE HCL 25 MG TABLET PO ×3 (05:35→20:59)
[2024-03-31] MEDS: GABAPENTIN 100 MG CAPSULE PO ×3 (05:35→20:56)
[2024-03-31 05:41] LABS: Platelet Estimate Increased (Adequate)
[2024-03-31 05:42] LABS: Hypochromasia 2+; Ovalocytes 1+; Schistocytes None Seen; Target Cells 1+
[2024-03-31 05:43] LABS: Anisocytosis 2+
[2024-03-31 08:17] LABS: Glucose Point of Care 112 mg/dl (65-105)
[2024-03-31] MEDS: LORATADINE 10 MG TABLET PO (09:00)
[2024-03-31] MEDS: FERROUS SULFATE 325 MG TABLET DR BY MOUTH ×2 (09:00→17:49)
[2024-03-31] MEDS: ASCORBIC ACID 500 MG TABLET PO (09:01)
[2024-03-31] MEDS: METOPROLOL TARTRATE 25 MG TABLET PO ×2 (09:06→20:54)
[2024-03-31] MEDS: MULTIVITAMINS THERAPEUTIC TAB (*BKC) 1 TABLET PO (09:06)
[2024-03-31] MEDS: PANTOPRAZOLE 40 MG TABLET PO (09:08)
[2024-03-31] MEDS: SENNA/DOCUSATE SODIUM TABLET 1 TAB PO (09:08)
[2024-03-31] MEDS: ENOXAPARIN 30 MG/0.3 ML SYRINGE SUB-Q (09:09)
[2024-03-31] MEDS: polyethylene glycoL 3350 17 GM POWD.PACK PO (09:10)
--- NOTE | 2024-03-31 09:19 | PM.IMPN ---
Progress Note: A&P Assessment and Plan (1) Left buttock abscess: Code(s): L02.31 - Cutaneous abscess of buttock Status: Acute Assessment and Plan: Patient presents with an open pressure ulcer draining foul smelling, purulent fluid with surrounding erythema, induration, warmth and tenderness to palpation. - Pelvis CT: 3.4 x 1.5 cm subcutaneous abscess in the left buttock. - Blood cultures collected on 03/28: gram positive cocci cluster - Antibiotics: Vanc, cefe, flagyl started on 03/29 - Monitor vital signs, I&Os, neuro status and patient is a fall risk - Monitor serum electrolytes, CBC, cultures, WBC and temp curve - Patient made NPO overnight for possible debridement today - Surgery consulted s/p sharp excisional debridement left gluteal pressure ulcer including skin and subcutaneous fat measuring 4 cm x 3 cm on 03/[address] Zabala continue daily dressing changes with silver gel and iodoform gauze. (2) Abnormal urinalysis: Code(s): R82.90 - Unspecified abnormal findings in urine Status: Acute Assessment and Plan: - UA: turbid appearance, > 1.045 specific gravity, 2+ protein, 1+ blood, 3+ leukocytes, 11-20 RBC, > 100 WBC, 4+ bacteria - UC obtained on 03/28: negative - No previous micro to be reviewed - started on cefepime on 03/29 as patient has cocurrent abscess (3) Insulin dependent type 2 diabetes mellitus: Code(s): E11.9 - Type 2 diabetes mellitus without complications; Z79.4 - meterman (current) use of insulin Status: Acute Assessment and Plan: - hypoglycemia protocol - POC blood glucose ACHS - home medication - 18 units lantus HS and SSI with meals - correct regimen ordered - lantus 18 units HS and moderate SSI TIDWM - A1C 6.9 (4) Hypertension: Code(s): I10 - Essential (primary) hypertension Status: Acute Assessment and Plan: Chronic, continue home medications. - hydralazine 25 mg TID - metoprolol 25 mg BID - verapamil 40 mg q8H - monitor (5) Chronic kidney disease, stage 3: Code(s): N18.30 - Chronic kidney disease, stage 3 unspecified Status: Acute Assessment and Plan: BUN/Cr 27/1.3 with GFR 39 on admission. Appears at baseline 1.3-2.2 per chart review. - BUN/Cr 22/1.5 on am labs - Monitor I/O and renal function - Avoid nephrotoxic medications - Renally dose medications (6) Iron deficiency anemia: Code(s): D50.9 - Iron deficiency anemia, unspecified Status: Acute Assessment and Plan: Chronic, continue iron supplementation. - Monitor (7) Obstructive sleep apnea: Code(s): G47.33 - Obstructive sleep apnea (adult) (pediatric) Status: Acute Assessment and Plan: - previously on ASV for complex sleep apnea though it does not sound as though she is wearing that any longer Time Spent With Patient Time with patient: 25 - 35 minutes Subjective Date/time seen: 03/31/24 09:19 Interval history: 88-year-old female with insulin-dependent diabetes, hypertension, hyperlipidemia, gastroesophageal reflux disease, iron deficiency anemia, and chronic kidney disease who presented to the emergency department via EMS from [facility] for evaluation of a left buttock wound. Patient is pleasant comfortably in bed. She has no complaints at this time denying chest pain, shortness a breath, nausea/ vomiting, and abdominal pain. She states her pain is much improved since surgical debridement of her wound. Patient was evaluated by surgery today and states to continue daily dressing changes with silver gel and iodoform gauze. Discussed patient with ID pharm and will transition her to PO doxy and Augmentin. Review of Systems Review of Systems: All systems reviewed & are unremarkable except as noted in HPI and below Exam Narrative: AF HR 68 RR 12 SpO2 96 BP 143/45 General: female in no acute respiratory distress who is nontoxic appearing, lying semi recumbent in bed. Chest: Lungs are clear and slightly diminished to auscultation bilaterally. No wheezes or crackles. Continue IS. CV: Heart was regular rate and rhythm. S1-S2. No murmurs, gallops, or rubs. Abd: Abdomen was soft. Nontender. Nondistended. Positive bowel sounds. No organomegaly or masses. Neuro: Patient is alert and oriented x3. Speech is clear. Skin: clean dry and intact surgical dressing to the left buttocks Objective Data Vital Signs Vital Signs: Vital Signs - 24 hr 03/30/24 13:00 03/30/24 15:31 03/30/24 15:45 Temperature 98.1 F 98.2 F Pulse Rate 72 70 74 Respiratory Rate 14 12 14 Blood Pressure 170/38 H 177/54 H 179/66 H Pulse Oximetry 94 100 100 Oxygen Delivery Room Air Simple Face Mask Simple Face Mask Oxygen Flow Rate 8 8 03/30/24 15:50 03/30/24 16:00 03/30/24 16:15 Temperature Pulse Rate 73 72 Respiratory Rate 15 16 Blood Pressure 138/43 L 161/54 H Pulse Oximetry 95 95 Oxygen Delivery Room Air Room Air Room Air Oxygen Flow Rate 03/30/24 17:10 03/30/24 17:11 03/30/24 16:40 Temperature 97.6 F 97.7 F Pulse Rate 72 71 Respiratory Rate 19 18 18 Blood Pressure 156/63 H 177/57 H Pulse Oximetry 97 96 96 Oxygen Delivery Room Air Oxygen Flow Rate 03/30/24 18:24 03/30/24 21:34 03/30/24 21:51 Temperature 97.5 F L 97.9 F Pulse Rate 69 69 69 Respiratory Rate 17 14 Blood Pressure 148/40 H 153/57 H Pulse Oximetry 95 96 Oxygen Delivery Oxygen Flow Rate 03/30/24 20:00 03/31/24 00:31 03/31/24 05:36 Temperature 98.2 F 97.6 F Pulse Rate 69 69 Respiratory Rate 16 16 Blood Pressure 151/50 H 173/48 H Pulse Oximetry 98 96 Oxygen Delivery Room Air Oxygen Flow Rate 03/31/24 09:06 Temperature Pulse Rate 75 Respiratory Rate Blood Pressure Pulse Oximetry Oxygen Delivery Oxygen Flow Rate Intake/Output Intake/Output: Intake & Output 03/28/24 03/29/24 03/30/24 03/31/24 23:59 23:59 23:59 23:59 Intake Total 50 1190 912.5 1540 Output Total 825 1200 500 Balance 50 365 -287.5 1040 Meds/Results Medications: Active Medications Generic Name Dose Route Start Last Admin Trade Name Freq PRN Reason Stop Dose Admin Acetaminophen 650 mg 03/28/24 23:12 Acetaminophen 325 Mg Tablet PO Q6H PRN Mild Pain (1-3) or Fever Acetaminophen 500 mg 03/30/24 16:22 Acetaminophen 500 Mg Tablet PO Q6H PRN Pain Rated 1-3 Hydrocodone Bitart/Acetaminophen 1 tab 03/30/24 16:22 Hydrocodone/Acetaminophen (*Crx) 5-325 Mg Tablet PO Q4H PRN Pain Rated 4-6 Hydrocodone Bitart/Acetaminophen 1 tab 03/30/24 16:22 Hydrocodone/Acetaminophen (*Crx) 7.5-325 Mg Tablet PO Q4H PRN Pain Rated 7-10 Albuterol 2 puff 03/28/24 23:13 Albuterol Sulfate (*Sp) Aerosol 1 Puff INHALATION QID PRN SOB or wheezing Ascorbic Acid 500 mg 03/29/24 09:00 03/31/24 09:01 Ascorbic Acid 500 Mg Tablet PO 500 mg DAILY EPIFANIO Administration Atorvastatin Calcium 40 mg 03/29/24 21:00 03/30/24 21:51 Atorvastatin 40 Mg Tablet PO 40 mg HS EPIFANIO Administration Dextrose 12.5 gm 03/28/24 23:12 Dextrose 50% 25 Gm/50 Ml Syringe IV PUSH PRN PRN Hypoglycemia Protocol Enoxaparin Sodium 30 mg 03/31/24 09:00 03/31/24 09:09 Enoxaparin 30 Mg/0.3 Ml Syringe SUB-Q 30 mg DAILY EPIFANIO Administration Ferrous Sulfate 325 mg 03/29/24 09:00 03/31/24 09:00 Ferrous Sulfate [address] BY MOUTH 325 mg BID EPIFANIO Administration Gabapentin 100 mg 03/29/24 06:00 03/31/24 05:35 Gabapentin 100 Mg Capsule PO 100 mg Q8HR EPIFANIO Administration Glucagon 1 mg 03/28/24 23:12 Glucagon For Inj 1 Mg Vial IM PRN PRN Hypoglycemia Protocol Glucose 15 gm 03/28/24 23:12 Glucose Oral Gel 15 Gm Of Glucse In 37.5 Gm Tube PO PRN PRN Hypoglycemia Protocol Hydralazine HCl 25 mg 03/29/24 06:00 03/31/24 05:35 Hydralazine Hcl 25 Mg Tablet PO 25 mg Q8HR EPIFANIO Administration Metronidazole 500 mg in 100 mls @ 100 mls/hr 03/29/24 06:00 03/31/24 06:34 Flagyl 500 Mg/Iso Soln 100 Ml IVPB Infused Q8H EPIFANIO Infusion Dextrose 1,000 mls @ 100 mls/hr 03/28/24 23:12 Dextrose 5% 1,000 Ml IVPB PRN PRN Hypoglycemia Protocol Cefepime HCl 1 gm in 50 mls @ 100 mls/hr 03/29/24 01:00 03/31/24 00:52 Maxipime 1 Gm/Ns 50 Ml IVPB Infused Q24H EPIFANIO Infusion Vancomycin HCl 1,500 mg in 500 mls @ 250 mls/hr 03/30/24 14:00 03/30/24 12:06 Vancomycin 1,500 Mg/Ns 500 Ml IVPB 250 mls/hr Q36H EPIFANIO Infusion Insulin Aspart 3 - 6 units 03/29/24 08:00 03/31/24 08:45 Insulin Aspart (*Bkc) 100 Units/Ml SUB-Q Not Given TIDWM [facility] Protocol Insulin Glargine 18 units 03/29/24 21:00 03/30/24 21:51 Insulin Glargine (*Bkc) 100 Units/Ml SUB-Q 18 units HS EPIFANIO Administration Loratadine 10 mg 03/29/24 09:00 03/31/24 09:00 Loratadine 10 Mg Tablet PO 10 mg QAM EPIFANIO Administration Metoprolol Tartrate 25 mg 03/29/24 09:00 03/31/24 09:06 Metoprolol Tartrate 25 Mg Tablet PO 25 mg Q12HR EPIFANIO Administration Miscellaneous Information 0 each 03/30/24 00:01 03/30/24 1326-Clarify Tramadol Listed As Allergy But It Is Ordered For Patient. Place On H XX 04/29/24 00:00 CLARIFY EPIFANIO Multivitamins Therapeutic 1 tablet 03/29/24 09:00 03/31/24 09:06 Multivitamins Therapeutic Tab (*Bkc) PO 1 tablet DAILY EPIFANIO Administration Naloxone HCl 0.1 mg 03/30/24 16:22 Naloxone Hcl 0.4 Mg/Ml Vial IV PUSH Q2M PRN Opiate Reversal Ondansetron HCl 4 mg 03/28/24 20:27 Ondansetron Inj 4 Mg/2 Ml Vial IV PUSH Q4H PRN Nausea Pantoprazole Sodium 40 mg 03/29/24 09:00 03/31/24 09:08 Pantoprazole 40 Mg Tablet PO 40 mg QAM EPIFANIO Administration Polyethylene Glycol 17 gm 03/29/24 09:00 03/31/24 09:10 Polyethylene Glycol 3350 17 Gm Powd.Pack PO 17 gm DAILY EPIFANIO Administration Senna/Docusate Sodium 1 tab 03/29/24 09:00 03/31/24 09:08 Senna/Docusate Sodium Tablet PO 1 tab DAILY EPIFANIO Administration Tramadol HCl 50 mg 03/28/24 23:13 03/29/24 08:35 Tramadol Hcl (*Crx) 50 Mg Tablet PO 50 mg BID PRN Administration Pain 4-6 Verapamil HCl 40 mg 03/28/24 23:15 03/31/24 05:34 Verapamil Hcl 40 Mg Tablet PO 40 mg Q8HR EPIFANIO Administration Radiology Results: ITS Impressions Pelvis CT 03/28/24 17:59 IMPRESSION: 1. 3.4 x 1.5 cm subcutaneous abscess in the left buttock. 2. Cystitis. Labs Labs: Laboratory Results - last 24 hr 03/30/24 03/30/24 03/30/24 11:36 13:04 16:07 WBC RBC Hgb Hct MCV MCH MCHC RDW Plt Count MPV Immature Gran % (Auto) Neut % (Auto) Lymph % (Auto) [place] % (Auto) Eos % (Auto) Baso % (Auto) Lymph # (Auto) [place] # (Auto) Eos # (Auto) Baso # (Auto) Abs Immat Gran (auto) Absolute Neuts (auto) Absolute Nucleated RBC Nucleated RBC % Platelet Estimate Hypochromasia Anisocytosis Target Cells Ovalocytes Schistocytes Sodium Potassium Chloride Carbon Dioxide Anion Gap BUN Creatinine Estim Creat Clear Calc Estimated GFR Glucose POC Capillary Glucose 153 H 132 H 153 H Calcium Total Bilirubin AST ALT Alkaline Phosphatase Total Protein Albumin 03/30/24 03/31/24 03/31/24 21:29 04:40 08:11 WBC 9.1 RBC 2.64 L Hgb 7.2 L Hct 23.5 L MCV 89.0 MCH 27.3 MCHC 30.6 L RDW 22.4 H Plt Count 382 H MPV 12.0 H Immature Gran % (Auto) 1.0 H Neut % (Auto) 64.6 Lymph % (Auto) 20.3 [place] % (Auto) 8.5 Eos % (Auto) 4.5 H Baso % (Auto) 1.1 Lymph # (Auto) 1.85 [place] # (Auto) 0.8 H Eos # (Auto) 0.4 H Baso # (Auto) 0.1 Abs Immat Gran (auto) 0.09 H Absolute Neuts (auto) 5.9 Absolute Nucleated RBC 0.000 Nucleated RBC % 0.0 Platelet Estimate Increased Hypochromasia 2+ Anisocytosis 2+ Target Cells 1+ Ovalocytes 1+ Schistocytes None seen Sodium 139 Potassium 3.6 Chloride 107 Carbon Dioxide 26 Anion Gap 6 BUN 22 H Creatinine 1.50 H Estim Creat Clear Calc 25 Estimated GFR 33 L Glucose 102 POC Capillary Glucose 147 H 112 H Calcium 8.6 Total Bilirubin 0.6 AST 31 ALT 26 Alkaline Phosphatase 69 Total Protein 6.0 L Albumin 2.8 L Quality VTE Prophylaxis VTE prophylaxis: mechanical ordered
--- NOTE | 2024-03-31 11:42 | WPDANESPN ---
Anes - Prog Note Post-Op Date/Time: 03/31/24 11:42 Cardiovascular status: normal Respiratory status: normal Airway patency: baseline Mental status: baseline Post-Op hydration status: normal Vital Signs: Last Vital Signs Temp 36.4 C 03/31/24 05:36 Pulse 75 03/31/24 09:06 Resp 16 03/31/24 05:36 BP 173/48 H 03/31/24 05:36 Pulse Ox 96 03/31/24 05:36 O2 Del Method Room Air 03/30/24 20:00 O2 Flow Rate 8 03/30/24 15:45 Pain Score (VAS): 0 I/O: Intake & Output 03/30/24 03/31/24 03/31/24 23:59 07:59 15:59 Intake Total 100 1300 240 Output Total 1000 500 Balance -900 800 240 Laboratory Tests 03/31/24 04:40 03/31/24 04:40 03/30/24 03/30/24 03/30/24 11:36 13:04 16:07 WBC RBC Hgb Hct MCV MCH MCHC RDW Plt Count MPV Immature Gran % (Auto) Neut % (Auto) Lymph % (Auto) [place] % (Auto) Eos % (Auto) Baso % (Auto) Lymph # (Auto) [place] # (Auto) Eos # (Auto) Baso # (Auto) Abs Immat Gran (auto) Absolute Neuts (auto) Absolute Nucleated RBC Nucleated RBC % Platelet Estimate Hypochromasia Anisocytosis Target Cells Ovalocytes Schistocytes Sodium Potassium Chloride Carbon Dioxide Anion Gap BUN Creatinine Estim Creat Clear Calc Estimated GFR Glucose POC Capillary Glucose 153 H 132 H 153 H Calcium Total Bilirubin AST ALT Alkaline Phosphatase Total Protein Albumin 03/30/24 03/31/24 03/31/24 21:29 04:40 08:11 WBC 9.1 RBC 2.64 L Hgb 7.2 L Hct 23.5 L MCV 89.0 MCH 27.3 MCHC 30.6 L RDW 22.4 H Plt Count 382 H MPV 12.0 H Immature Gran % (Auto) 1.0 H Neut % (Auto) 64.6 Lymph % (Auto) 20.3 [place] % (Auto) 8.5 Eos % (Auto) 4.5 H Baso % (Auto) 1.1 Lymph # (Auto) 1.85 [place] # (Auto) 0.8 H Eos # (Auto) 0.4 H Baso # (Auto) 0.1 Abs Immat Gran (auto) 0.09 H Absolute Neuts (auto) 5.9 Absolute Nucleated RBC 0.000 Nucleated RBC % 0.0 Platelet Estimate Increased Hypochromasia 2+ Anisocytosis 2+ Target Cells 1+ Ovalocytes 1+ Schistocytes None seen Sodium 139 Potassium 3.6 Chloride 107 Carbon Dioxide 26 Anion Gap 6 BUN 22 H Creatinine 1.50 H Estim Creat Clear Calc 25 Estimated GFR 33 L Glucose 102 POC Capillary Glucose 147 H 112 H Calcium 8.6 Total Bilirubin 0.6 AST 31 ALT 26 Alkaline Phosphatase 69 Total Protein 6.0 L Albumin 2.8 L Microbiology 03/28/24 18:09 Blood Blood Culture - Preliminary Staphylococcus hominis 03/28/24 20:18 Urine Catheterized Urine Culture - Final Post-procedural complaints: none Patient Feedback: Patient satisfied with anesthetic care.
[2024-03-31 11:54] LABS: Glucose Point of Care 179 mg/dl (65-105)
--- NOTE | 2024-03-31 13:14 | PM.PNGS ---
Progress Note: A&P Assessment and Plan (1) Stage III pressure ulcer of left buttock: Code(s): L89.323 - Pressure ulcer of left buttock, stage 3 Status: Acute Assessment and Plan: Continue daily dressing changes with Silver gel, 1 iodoform gauze packing. Surgically stable for discharge. Continue local wound care and follow up as needed. (2) Left buttock abscess: Code(s): L02.31 - Cutaneous abscess of buttock Status: Acute Subjective Subjective Date/Time Seen: 03/31/24 13:14 Interval history: Doing well on POD#1. Pain controlled. No fevers. Exam Skin: Other: Dressing removed--wound appears healthy without purulent drainage. Objective Data Vital Signs Vital Signs: Vital Signs - 24 hr 03/30/24 15:31 03/30/24 15:45 03/30/24 15:50 Temperature 98.2 F Pulse Rate 70 74 Respiratory Rate 12 14 Blood Pressure 177/54 H 179/66 H Pulse Oximetry 100 100 Oxygen Delivery Simple Face Mask Simple Face Mask Room Air Oxygen Flow Rate 8 8 03/30/24 16:00 03/30/24 16:15 03/30/24 17:10 Temperature 97.6 F Pulse Rate 73 72 72 Respiratory Rate 15 16 19 Blood Pressure 138/43 L 161/54 H 156/63 H Pulse Oximetry 95 95 97 Oxygen Delivery Room Air Room Air Oxygen Flow Rate 03/30/24 17:11 03/30/24 16:40 03/30/24 18:24 Temperature 97.7 F 97.5 F L Pulse Rate 71 69 Respiratory Rate 18 18 17 Blood Pressure 177/57 H 148/40 H Pulse Oximetry 96 96 95 Oxygen Delivery Room Air Oxygen Flow Rate 03/30/24 21:34 03/30/24 21:51 03/30/24 20:00 Temperature 97.9 F Pulse Rate 69 69 Respiratory Rate 14 Blood Pressure 153/57 H Pulse Oximetry 96 Oxygen Delivery Room Air Oxygen Flow Rate 03/31/24 00:31 03/31/24 05:36 03/31/24 09:06 Temperature 98.2 F 97.6 F Pulse Rate 69 69 75 Respiratory Rate 16 16 Blood Pressure 151/50 H 173/48 H Pulse Oximetry 98 96 Oxygen Delivery Oxygen Flow Rate 03/31/24 10:00 Temperature 97.5 F L Pulse Rate 68 Respiratory Rate 12 Blood Pressure 143/45 H Pulse Oximetry 96 Oxygen Delivery Oxygen Flow Rate Intake/Output Intake/Output: Intake & Output 03/28/24 03/29/24 03/30/24 03/31/24 23:59 23:59 23:59 23:59 Intake Total 50 1190 912.5 1540 Output Total 825 1200 500 Balance 50 365 -287.5 1040 Meds/Results Medications: Active Medications Generic Name Dose Route Start Last Admin Trade Name Freq PRN Reason Stop Dose Admin Acetaminophen 650 mg 03/28/24 23:12 Acetaminophen 325 Mg Tablet PO Q6H PRN Mild Pain (1-3) or Fever Acetaminophen 500 mg 03/30/24 16:22 Acetaminophen 500 Mg Tablet PO Q6H PRN Pain Rated 1-3 Hydrocodone Bitart/Acetaminophen 1 tab 03/30/24 16:22 Hydrocodone/Acetaminophen (*Crx) 5-325 Mg Tablet PO Q4H PRN Pain Rated 4-6 Hydrocodone Bitart/Acetaminophen 1 tab 03/30/24 16:22 Hydrocodone/Acetaminophen (*Crx) 7.5-325 Mg Tablet PO Q4H PRN Pain Rated 7-10 Albuterol 2 puff 03/28/24 23:13 Albuterol Sulfate (*Sp) Aerosol 1 Puff INHALATION QID PRN SOB or wheezing Amoxicillin/Clavulanate Potassium 1 tablet 03/31/24 21:00 Amoxicillin/Clavulanate K 500-125 Mg Tab PO 04/06/24 21:01 Q12HR EPIFANIO Ascorbic Acid 500 mg 03/29/24 09:00 03/31/24 09:01 Ascorbic Acid 500 Mg Tablet PO 500 mg DAILY EPIFANIO Administration Atorvastatin Calcium 40 mg 03/29/24 21:00 03/30/24 21:51 Atorvastatin 40 Mg Tablet PO 40 mg HS EPIFANIO Administration Dextrose 12.5 gm 03/28/24 23:12 Dextrose 50% 25 Gm/50 Ml Syringe IV PUSH PRN PRN Hypoglycemia Protocol Doxycycline Hyclate 100 mg 03/31/24 21:00 Doxycycline Hyclate 100 Mg Tablet PO 04/06/24 21:01 Q12HR EPIFANIO Enoxaparin Sodium 30 mg 03/31/24 09:00 03/31/24 09:09 Enoxaparin 30 Mg/0.3 Ml Syringe SUB-Q 30 mg DAILY EPIFANIO Administration Ferrous Sulfate 325 mg 03/29/24 09:00 03/31/24 09:00 Ferrous Sulfate [address] BY MOUTH 325 mg BID EPIFANIO Administration Gabapentin 100 mg 03/29/24 06:00 03/31/24 05:35 Gabapentin 100 Mg Capsule PO 100 mg Q8HR EPIFANIO Administration Glucagon 1 mg 03/28/24 23:12 Glucagon For Inj 1 Mg Vial IM PRN PRN Hypoglycemia Protocol Glucose 15 gm 03/28/24 23:12 Glucose Oral Gel 15 Gm Of Glucse In 37.5 Gm Tube PO PRN PRN Hypoglycemia Protocol Hydralazine HCl 25 mg 03/29/24 06:00 03/31/24 05:35 Hydralazine Hcl 25 Mg Tablet PO 25 mg Q8HR EPIFANIO Administration Dextrose 1,000 mls @ 100 mls/hr 03/28/24 23:12 Dextrose 5% 1,000 Ml IVPB PRN PRN Hypoglycemia Protocol Insulin Aspart 3 - 6 units 03/29/24 08:00 03/31/24 12:37 Insulin Aspart (*Bkc) 100 Units/Ml SUB-Q Not Given TIDWM [facility] Protocol Insulin Glargine 18 units 03/29/24 21:00 03/30/24 21:51 Insulin Glargine (*Bkc) 100 Units/Ml SUB-Q 18 units HS EPIFANIO Administration Loratadine 10 mg 03/29/24 09:00 03/31/24 09:00 Loratadine 10 Mg Tablet PO 10 mg QAM EPIFANIO Administration Metoprolol Tartrate 25 mg 03/29/24 09:00 03/31/24 09:06 Metoprolol Tartrate 25 Mg Tablet PO 25 mg Q12HR EPIFANIO Administration Miscellaneous Information 0 each 03/30/24 00:01 03/30/24 1326-Clarify Tramadol Listed As Allergy But It Is Ordered For Patient. Place On H XX 04/29/24 00:00 CLARIFY EPIFANIO Multivitamins Therapeutic 1 tablet 03/29/24 09:00 03/31/24 09:06 Multivitamins Therapeutic Tab (*Bkc) PO 1 tablet DAILY EPIFANIO Administration Naloxone HCl 0.1 mg 03/30/24 16:22 Naloxone Hcl 0.4 Mg/Ml Vial IV PUSH Q2M PRN Opiate Reversal Ondansetron HCl 4 mg 03/28/24 20:27 Ondansetron Inj 4 Mg/2 Ml Vial IV PUSH Q4H PRN Nausea Pantoprazole Sodium 40 mg 03/29/24 09:00 03/31/24 09:08 Pantoprazole 40 Mg Tablet PO 40 mg QAM EPIFANIO Administration Polyethylene Glycol 17 gm 03/29/24 09:00 03/31/24 09:10 Polyethylene Glycol 3350 17 Gm Powd.Pack PO 17 gm DAILY EPIFANIO Administration Senna/Docusate Sodium 1 tab 03/29/24 09:00 03/31/24 09:08 Senna/Docusate Sodium Tablet PO 1 tab DAILY EPIFANIO Administration Tramadol HCl 50 mg 03/28/24 23:13 03/29/24 08:35 Tramadol Hcl (*Crx) 50 Mg Tablet PO 50 mg BID PRN Administration Pain 4-6 Verapamil HCl 40 mg 03/28/24 23:15 03/31/24 05:34 Verapamil Hcl 40 Mg Tablet PO 40 mg Q8HR EPIFANIO Administration Radiology Results: ITS Impressions Pelvis CT 03/28/24 17:59 IMPRESSION: 1. 3.4 x 1.5 cm subcutaneous abscess in the left buttock. 2. Cystitis. Labs Labs: Laboratory Results - last 24 hr 03/30/24 03/30/24 03/30/24 13:04 16:07 21:29 WBC RBC Hgb Hct MCV MCH MCHC RDW Plt Count MPV Immature Gran % (Auto) Neut % (Auto) Lymph % (Auto) [place] % (Auto) Eos % (Auto) Baso % (Auto) Lymph # (Auto) [place] # (Auto) Eos # (Auto) Baso # (Auto) Abs Immat Gran (auto) Absolute Neuts (auto) Absolute Nucleated RBC Nucleated RBC % Platelet Estimate Hypochromasia Anisocytosis Target Cells Ovalocytes Schistocytes Sodium Potassium Chloride Carbon Dioxide Anion Gap BUN Creatinine Estim Creat Clear Calc Estimated GFR Glucose POC Capillary Glucose 132 H 153 H 147 H Calcium Total Bilirubin AST ALT Alkaline Phosphatase Total Protein Albumin 03/31/24 03/31/24 03/31/24 04:40 08:11 11:48 WBC 9.1 RBC 2.64 L Hgb 7.2 L Hct 23.5 L MCV 89.0 MCH 27.3 MCHC 30.6 L RDW 22.4 H Plt Count 382 H MPV 12.0 H Immature Gran % (Auto) 1.0 H Neut % (Auto) 64.6 Lymph % (Auto) 20.3 [place] % (Auto) 8.5 Eos % (Auto) 4.5 H Baso % (Auto) 1.1 Lymph # (Auto) 1.85 [place] # (Auto) 0.8 H Eos # (Auto) 0.4 H Baso # (Auto) 0.1 Abs Immat Gran (auto) 0.09 H Absolute Neuts (auto) 5.9 Absolute Nucleated RBC 0.000 Nucleated RBC % 0.0 Platelet Estimate Increased Hypochromasia 2+ Anisocytosis 2+ Target Cells 1+ Ovalocytes 1+ Schistocytes None seen Sodium 139 Potassium 3.6 Chloride 107 Carbon Dioxide 26 Anion Gap 6 BUN 22 H Creatinine 1.50 H Estim Creat Clear Calc 25 Estimated GFR 33 L Glucose 102 POC Capillary Glucose 112 H 179 H Calcium 8.6 Total Bilirubin 0.6 AST 31 ALT 26 Alkaline Phosphatase 69 Total Protein 6.0 L Albumin 2.8 L
[2024-03-31 16:59] LABS: Glucose Point of Care 158 mg/dl (65-105)
[2024-03-31 17:07] LABS: Glucose Point of Care 154 mg/dl (65-105)
[2024-03-31] MEDS: INSULIN GLARGINE (*BKC) 100 UNITS/ML 18 UNITS SUB-Q (20:51)
[2024-03-31] MEDS: DOXYCYCLINE HYCLATE 100 MG TABLET PO (20:54)
[2024-03-31] MEDS: ATORVASTATIN 40 MG TABLET PO (20:54)
[2024-03-31] MEDS: AMOXICILLIN/CLAVULANATE K 500-125 MG TAB 1 TABLET PO (20:55)
[2024-03-31 21:13] LABS: Glucose Point of Care 252 mg/dl (65-105)
[2024-04-01 05:03] VITALS: BP 153/48; PULSE 67; RESP 18; TEMP 36.8; O2SAT 98
[2024-04-01 05:28] LABS: Basophils Absolute Auto 0.1 K/mm3 (0.0-0.1); Eosinophils Absolute Auto 0.4 K/mm3 (0-0.3); Eosinophils Percent Auto 5.4 % (0-4.4); Hematocrit 25.8 % (37.0-47.0); Hemoglobin 8.1 g/dL (12.0-15.0); Immature Granulocyte Percent A 1.3 % (0-0.5); Lymphocytes Absolute Auto 1.76 K/mm3 (0.9-3.2); Lymphocytes Percent Auto 22.6 % (18.3-44.2); Mean Corpuscular HGB Conc 31.4 g/dl (32-36); Mean Corpuscular Hemoglobin 27.7 pg (26-34); Mean Corpuscular Volume 88.4 fl (80-100); Mean Platelet Volume 10.9 fl (7.4-10.4); Monocytes Absolute Auto 0.6 K/mm3 (0.1-0.6); Monocytes Percent Auto 7.8 % (2.6-8.5); Neutrophils Absolute Auto 4.8 K/mm3 (1.3-6.7); Neutrophils Percent Auto 61.9 % (45.5-73.1); Platelet Count Result 382 k/mm3 (150-375); Red Blood Count 2.92 M/mm3 (4.2-5.4); Red Cell Distribution Width 22.6 % (11.5-14.5); White Blood Count 7.8 K/mm3 (4.5-10.0)
[2024-04-01 05:48] LABS: Alanine Aminotransferase 28 U/L (6-35); Albumin Level 2.9 g/dL (3.5-5.1); Alkaline Phosphatase 73 U/L (38-126); Anion Gap 4 mmol/L (4-12); Aspartate Amino Transferase 44 U/L (14-36); Bilirubin,Total 0.6 mg/dL (0.2-1.3); Blood Urea Nitrogen 20 mg/dL (7-17); Calcium 8.6 mg/dL (8.4-10.2); Carbon Dioxide 29 mmol/L (22-30); Chloride 106 mmol/L (98-107); Estimated CRCL calculation 26 ml/min; Estimated Glomerular Filt Rate 35; Glucose 112 mg/dL (65-110); Potassium 3.8 mmol/L (3.4-5.0); Sodium 139 mmol/L (137-145)
[2024-04-01 05:52] LABS: Anisocytosis 2+; Hypochromasia 2+; Ovalocytes 1+; Platelet Estimate Adequate (Adequate); Poikilocytosis 1+; Schistocytes None Seen; Target Cells 1+; Tear Drop Cells 1+
[2024-04-01] MEDS: GABAPENTIN 100 MG CAPSULE PO ×2 (06:12→13:54)
[2024-04-01] MEDS: VERAPAMIL HCL 40 MG TABLET PO ×2 (06:13→13:53)
[2024-04-01] MEDS: hydrALAZINE HCL 25 MG TABLET PO ×2 (06:13→13:54)
[2024-04-01 07:41] LABS: Glucose Point of Care 106 mg/dl (65-105)
[2024-04-01] MEDS: SENNA/DOCUSATE SODIUM TABLET 1 TAB PO (08:50)
[2024-04-01] MEDS: MULTIVITAMINS THERAPEUTIC TAB (*BKC) 1 TABLET PO (08:50)
[2024-04-01] MEDS: ENOXAPARIN 30 MG/0.3 ML SYRINGE SUB-Q (08:50)
[2024-04-01] MEDS: LORATADINE 10 MG TABLET PO (08:50)
[2024-04-01] MEDS: DOXYCYCLINE HYCLATE 100 MG TABLET PO (08:50)
[2024-04-01] MEDS: ASCORBIC ACID 500 MG TABLET PO (08:50)
[2024-04-01] MEDS: AMOXICILLIN/CLAVULANATE K 500-125 MG TAB 1 TABLET PO (08:50)
[2024-04-01 08:51] VITALS: PULSE 74
[2024-04-01] MEDS: FERROUS SULFATE 325 MG TABLET DR BY MOUTH (08:51)
[2024-04-01] MEDS: METOPROLOL TARTRATE 25 MG TABLET PO (08:51)
[2024-04-01] MEDS: PANTOPRAZOLE 40 MG TABLET PO (08:51)
[2024-04-01] MEDS: polyethylene glycoL 3350 17 GM POWD.PACK PO (08:52)
[2024-04-01 10:00] VITALS: BP 146/60; PULSE 71; RESP 12; TEMP 36.4; O2SAT 98
[2024-04-01 12:04] LABS: Glucose Point of Care 197 mg/dl (65-105)
--- NOTE | 2024-04-01 12:32 | P.DS_ITS ---
DS: Admitting Diagnosis Discharge Date 04/01/2024 Admitting Diagnosis left buttock abscess abnormal urinalysis insulin-dependent diabetes hypertension CKD iron deficiency anemia DAVID DS: Discharge Diagnosis Discharge Diagnosis (1) Left buttock abscess: Code(s): L02.31 - Cutaneous abscess of buttock Status: Acute (2) Abnormal urinalysis: Code(s): R82.90 - Unspecified abnormal findings in urine Status: Acute (3) Insulin dependent type 2 diabetes mellitus: Code(s): E11.9 - Type 2 diabetes mellitus without complications; Z79.4 - skilled nursing (current) use of insulin Status: Acute (4) Hypertension: Code(s): I10 - Essential (primary) hypertension Status: Acute (5) Chronic kidney disease, stage 3: Code(s): N18.30 - Chronic kidney disease, stage 3 unspecified Status: Acute (6) Iron deficiency anemia: Code(s): D50.9 - Iron deficiency anemia, unspecified Status: Acute (7) Obstructive sleep apnea: Code(s): G47.33 - Obstructive sleep apnea (adult) (pediatric) Status: Acute DS: Summary Hospital Course Reason for hospitalization: left buttock abscess abnormal urinalysis insulin-dependent diabetes hypertension CKD iron deficiency anemia DAVID Hospital Course: 88-year-old female with insulin-dependent diabetes, hypertension, hyperlipidemia, gastroesophageal reflux disease, iron deficiency anemia, and chronic kidney disease who presented to the emergency department via EMS from [facility] for evaluation of a left buttock wound. Patient not meeting sepsis criteria on admission. A CT pelvis was obtained and showed a 3.4 x 1.5 cm subcutaneous abscess in the left buttock. Patient started on IV antibiotics and surgery was consulted. Patient underwent a sharp excisional debridement left gluteal pressure ulcer including skin and subcutaneous fat measuring 4 cm x 3 cm on 03/[address] Zabala. Per surgery continue daily dressing changes with Silver gel, 1 iodoform gauze packing and local wound care and follow up as needed. Patient discharged on doxycycline and Augmentin , course to be completed on 04/06. Patient had a UA concerning for UTI, however culture negative. She has no urinary symptoms. Prior to discharge patient had no complaints, denying chest pain, shortness of breath, nausea/vomiting, and abdominal pain. Patient discharged back to [facility] in stable condition. She is to complete her antibiotics as prescribed and follow up with her PCP in 1 week. Status at Discharge Functional status at discharge: wheelchair bound Time Spent with Patient Time attestation: Total time spent providing and/or coordinating discharge services: Time spent: Greater than 30 minutes Exam Narrative: AF HR 71 RR 12 SpO2 98 BP 146/60 General: female in no acute respiratory distress who is nontoxic appearing, lying semi recumbent in bed. Chest: Lungs are clear and slightly diminished to auscultation bilaterally. No wheezes or crackles. Continue IS. CV: Heart was regular rate and rhythm. S1-S2. No murmurs, gallops, or rubs. Abd: Abdomen was soft. Nontender. Nondistended. Positive bowel sounds. No organomegaly or masses. Neuro: Patient is alert and oriented x3. Speech is clear. Skin: Clean dry and intact surgical dressing to the left buttocks DS: Data Data Completed and Pending Completed studies during hospitalization: Pelvis CT Chest CT Labs on day of discharge: Labs from last 24 hours 04/01/24 04/01/24 04/01/24 11:58 07:33 05:10 WBC 7.8 RBC 2.92 L Hgb 8.1 L Hct 25.8 L MCV 88.4 MCH 27.7 MCHC 31.4 L RDW 22.6 H Plt Count 382 H MPV 10.9 H Immature Gran % (Auto) 1.3 H Neut % (Auto) 61.9 Lymph % (Auto) 22.6 [place] % (Auto) 7.8 Eos % (Auto) 5.4 H Baso % (Auto) 1.0 Lymph # (Auto) 1.76 [place] # (Auto) 0.6 Eos # (Auto) 0.4 H Baso # (Auto) 0.1 Abs Immat Gran (auto) 0.10 H Absolute Neuts (auto) 4.8 Absolute Nucleated RBC 0.000 Nucleated RBC % 0.0 Platelet Estimate Adequate Hypochromasia 2+ Poikilocytosis 1+ Anisocytosis 2+ Target Cells 1+ Tear Drop Cells 1+ Ovalocytes 1+ Schistocytes None seen Sodium 139 Potassium 3.8 Chloride 106 Carbon Dioxide 29 Anion Gap 4 BUN 20 H Creatinine 1.40 H Estim Creat Clear Calc 26 Estimated GFR 35 L Glucose 112 H POC Capillary Glucose 197 H 106 H Calcium 8.6 Total Bilirubin 0.6 AST 44 H ALT 28 Alkaline Phosphatase 73 Total Protein 6.0 L Albumin 2.9 L 03/31/24 03/31/24 03/31/24 19:35 17:02 16:36 WBC RBC Hgb Hct MCV MCH MCHC RDW Plt Count MPV Immature Gran % (Auto) Neut % (Auto) Lymph % (Auto) [place] % (Auto) Eos % (Auto) Baso % (Auto) Lymph # (Auto) [place] # (Auto) Eos # (Auto) Baso # (Auto) Abs Immat Gran (auto) Absolute Neuts (auto) Absolute Nucleated RBC Nucleated RBC % Platelet Estimate Hypochromasia Poikilocytosis Anisocytosis Target Cells Tear Drop Cells Ovalocytes Schistocytes Sodium Potassium Chloride Carbon Dioxide Anion Gap BUN Creatinine Estim Creat Clear Calc Estimated GFR Glucose POC Capillary Glucose 252 H 154 H 158 H Calcium Total Bilirubin AST ALT Alkaline Phosphatase Total Protein Albumin Preliminary micro results at discharge 03/28/24 18:09 Blood Culture - Preliminary Blood Staphylococcus hominis 03/28/24 18:09 Blood Culture - Preliminary Blood Discharge Plan Discharge Attending physician on discharge: Joshua Gilmore Consulting providers: Vernon Zabala Discharging Clinician: Emily Kingsley Anticipated Discharge Date/Time: 04/01/24 12:32 Patient Disposition: NH Residential/Asst Living Activity: as tolerated Diet: as tolerated, heart healthy and diabetic Discharge Instructions: Discharge disposition: Patient admitted to the hospital for an open pressure ulcer of her left buttock She had a sharp excisional debridement left gluteal pressure ulcer including skin and subcutaneous fat measuring 4 cm x 3 cm on 03/[address] Zabala Take medications as prescribed even if feeling better Doxycycline and augmentin, course to be completed on 04/06 Attached is information on these medications Continue daily dressing changes with Silver gel, 1 iodoform gauze packing. Continue local wound care and follow up as needed. Patient was treated for concern of a urinary tract infection, however urine culture was negative Eat well balanced meals and stay hydrated Keep active to remain strong Avoid use of diapers or pads Good rita Care every 2 hours Trend urine output Monitor blood pressures Take caution while standing, rising, or moving Change positions slowly taking a break between each position change If you standing feel dizzy sat back down and take a break Encouraged to continue with yearly vaccinations Return to the emergency department if he developed sudden shortness of breath, chest pain, nausea, vomiting, upset stomach or intractable diarrhea Return to the emergency department if you develop fever greater than 101.5 Follow-up with the primary care physician within 1 weeks Thank you for [facility] for your healthcare needs Patient Instructions: Antibiotic Form, Doxycycline (By mouth), Amoxicillin/Clavulanate Potassium (By mouth), Heart Failure (DC), Pain Management (DC), How to Prevent Pressure Injuries (DC), Pressure Injury (DC), Chronic Wounds (DC) Patient Language: Salvadorean Stand Alone Forms: General Discharge Information Follow-up/Referrals: UNKNOWN,DOCTOR [Primary Care Provider] - 1 Week Vernon Zabala DO [Physician] - Call for Appointment Discharge Medications: New doxycycline hyclate 100 mg Tablet 100 mg PO Q12HR Qty: 11 0RF amoxicillin-pot clavulanate [Augmentin] 500-125 mg Tablet 1 tablet PO Q12HR Qty: 11 0RF Continued ferrous sulfate 325 mg (65 mg iron) tablet 325 mg PO BID atorvastatin 40 mg Tablet 40 mg PO HS ipratropium-albuterol 0.5 mg-3 mg(2.5 mg base)/3 mL Solution For Nebulization 3 ml INHALATION QID PRN (Reason: Shortness Of Breath) fexofenadine [Alise Allergy] 60 mg Tablet 60 mg PO Q12H hydralazine 25 mg Tablet 25 mg PO TID metoprolol tartrate 25 mg Tablet 25 mg PO BID glucagon HCl [Glucagon (HCl) Emergency Kit] 1 mg Recon Soln 1 mg SUBCUT Q20M PRN (Reason: Hypoglycemia) Rx Instructions: special instructions: if hypoglycemic, unresponsive, and unable to take PO, administer 1mg IM X1, recheck BS in 15 mins, repeat as needed Dextrose Gel 15 g PO Q15M PRN (Reason: Hypoglycemia) Rx Instructions: dextrose gel 40%; amt: 15g; oral Special instructions: 15g PO Q15 min prn for low blood sugar below 70 multivitamin [Multiple Vitamin] Tablet 1 tablet PO DAILY verapamil 40 mg Tablet 40 mg PO Q8H sennosides-docusate sodium [Senna with Docusate Sodium] 8.6-50 mg Tablet 1 tab-cap PO DAILY tramadol 50 mg Tablet 50 mg PO BID PRN (Reason: Pain) ascorbic acid (vitamin C) 500 mg Tablet 500 mg PO DAILY benzonatate 100 mg Capsule 100 mg PO TID insulin aspart U-100 [Novolog U-100 Insulin aspart] 100 unit/mL Solution 1 sliding scale dose SUBCUT USEASDIRECTD Rx Instructions: If blood sugar <70 call MD If blood sugar is 150-200, give 4u 201-250, give 8u 251-300, give 12u 301-350, give 16u 351-400, give 20u >400, give 24u If blood sugar is >400u, call MD Before meals and at bedtime pantoprazole 40 mg Tablet,Delayed Release (Dr/Ec) 40 mg PO QAM gentamicin 0.1 % cream 1 applic TOPICAL PRN PRN (Reason: Wound Care) Rx Instructions: left buttock abcess 50/50 w/santyl, cover w/calcium alginate, silicone border qd gabapentin 100 mg capsule 100 mg PO TID polyethylene glycol 3350 [Miralax] 17 gram/dose Powder 17 g PO DAILY albuterol sulfate 90 mcg/actuation Hfa Aerosol Inhaler 2 puff INHALATION QID PRN (Reason: SOB or wheezing) ondansetron 4 mg Tablet,Disintegrating 4 mg PO Q8H PRN (Reason: Nausea) guaifenesin [Mucinex] 600 mg Tablet Extended Release 12hr 600 mg PO Q8H naloxone [Narcan] 4 mg/actuation [place],Non-Aerosol 1 spray INTRANASAL Q2-3M PRN (Reason: Opioid Overdose) Lantus Solostar U-100 Insulin 18 units subcut HS Date of admission: 03/29/24 09:15 Primary Care Provider: UNKNOWN,DOCTOR Admitting Provider: Dasha Swift Attending physician on admission: Emily Kingsley Condition: Stable Hospitalist MIPS Heart Failure (Exclusion) Patient has history of Heart Transplant or Left Ventricular Assistive Device?: No IF YES, STOP HERE Heart Failure (Qualifier) Patient has current or prior documentation of LVEF less than or equal to 40%, or mod/servere depressed LVSF?: No IF NO, STOP HERE
[2024-04-01] MEDS: ACETAMINOPHEN 500 MG TABLET PO (13:53)
[2024-04-01 14:16] LABS: SARS-CoV-2 RNA PCR Negative (Negative)
== END 2024-04-01 15:30 | DRG 570 ==
LOC: ANHED 17:26 → ANH2MED 20:59
PROVIDERS: Family Medicine; Physician Assistant; Surgery; Admitting Provider Internal Medicine; Emergency Provider Physician Assistant; Visit Provider Student in an Organized Health Care Education/Training Program
PROC: 0JB90ZZ Excision of Buttock Subcutaneous Tissue and Fascia, Open Approach (ICD-10-PCS; principal; 2024-03-30 13:30)
DX: L02.31 Cutaneous abscess of buttock (principal); L89.323 Pressure ulcer of left buttock, stage 3; G47.33 Obstructive sleep apnea (adult) (pediatric); D50.9 Iron deficiency anemia, unspecified; I12.9 Hypertensive chronic kidney disease with stage 1 through stage 4 chronic kidney disease, or unspecified chronic kidney disease; E11.22 Type 2 diabetes mellitus with diabetic chronic kidney disease; N18.30 Chronic kidney disease, stage 3 unspecified; M85.80 Other specified disorders of bone density and structure, unspecified site; R91.8 Other nonspecific abnormal finding of lung field; I73.9 Peripheral vascular disease, unspecified; Z11.52 Encounter for screening for COVID-19; K21.9 Gastro-esophageal reflux disease without esophagitis; Z66 Do not resuscitate; Z86.718 Personal history of other venous thrombosis and embolism; Z85.3 Personal history of malignant neoplasm of breast; Z90.49 Acquired absence of other specified parts of digestive tract
CPT/HCPCS: 36415; 72193; 80053; 81001; 82565; 82948; 83036; 83605; 83735; 85025; 85027; 85610; 85652; 85730; 86140; 87040; 87077; 87086; 87088; 87181; 87635; 96365; 96366; 96367; 96375; 99285; A9270; G0378; J0330; J0692; J1650; J1815; J1836; J2405; J2543; J2704; J3010; J3370; J7120; Q9967

== ENCOUNTER 2024-07-12 12:23 | Inpatient (IN) | payer MEDICARE, MEDICAID, SELFPAY ==
--- NOTE | ~2024-07-12 | XR_ITS ---
XR chest 1V 07/12/2024 14:13 Indication: Altered mental status Procedure: AP portable chest Comparison: Comparison to multiple prior studies sequentially, with oldest reviewed study dated 10/2014. Findings: Heart size normal. No focal air space disease, pulmonary edema, pleural effusion or suspect ed pneumothorax. Mildly elevated right diaphragm. Right paratracheal soft tissue compatible with vasc ular ectasia. Impression: 1: No acute cardiopulmonary disease. Reviewed, dictated and finalized at location A. EDITOR Impression: 1: No acute cardiopulmonary disease.
--- NOTE | ~2024-07-12 | CT_ITS ---
EXAMINATION: CT brain wo con DATE: 07/12/2024 14:07 INDICATION: Altered mental status. TECHNIQUE: Computed tomography (CT) of the head was performed without intravenous contrast. The mA wa s adjusted according to patient size. Iterative reconstruction technique was employed. The dose-lengt h product was 681.00 mGy-cm. COMPARISON: Head CT 03/08/2021 FINDINGS: There is an old infarct in the right cerebellum. There are old infarcts in the thalami bila terally. There is an old infarct in the left basal ganglia. There is an old infarct in the left parie chaya lobe. There are scattered areas of low attenuation in the cerebral white matter. There is no intr acranial hemorrhage, acute infarction, or abnormal intracranial mass lesion. There is ex vacuo dilata tion of the lateral ventricles. There are likely changes of ocular lens replacement surgeries. There is mucosal thickening in the paranasal sinuses. There are small bilateral mastoid effusions. IMPRESSION: 1. Old infarcts in the brain. 2. Moderate nonspecific cerebral white matter disease, which likely represents chronic small vessel i schemic disease. Reviewed, dictated and finalized at location A. ANALYST IMPRESSION: 1. Old infarcts in the brain. 2. Moderate nonspecific cerebral white matter disease, which likely represents chronic small vessel ischemic disease.
--- NOTE | 2024-07-12 12:37 | ECG_ITS ---
Test Date: 2024-07-12 12:44:03 Measurements Intervals [place] Rate: 85 P: 13 OK: 211 QRS: 18 QRSD: 77 T: 1 QT: 381 QTc: 455 Interpretive Statements SINUS RHYTHM WITH FIRST DEGREE AV BLOCK No previous ECG available for comparison Electronically Signed On 07-12-2024 16:10:45 BRIMMING MACHINE OPERATOR by Daniel Cedillo M.D.
[2024-07-12 12:38] VITALS: BP 158/49; PULSE 85; RESP 21; TEMP 36.3; O2SAT 98
[2024-07-12 13:09] LABS: Basophils Absolute Auto 0.1 K/mm3 (0.0-0.1); Basophils Percent Auto 0.5 % (0.2-1.2); Eosinophils Percent Auto 0.1 % (0-4.4); Hematocrit 26.2 % (37.0-47.0); Immature Granulocyte Percent A 0.5 % (0-0.5); Lymphocytes Absolute Auto 1.18 K/mm3 (0.9-3.2); Lymphocytes Percent Auto 5.9 % (18.3-44.2); Mean Corpuscular HGB Conc 30.5 g/dl (32-36); Mean Corpuscular Hemoglobin 26.4 pg (26-34); Mean Corpuscular Volume 86.5 fl (80-100); Mean Platelet Volume 11.4 fl (7.4-10.4); Monocytes Absolute Auto 0.7 K/mm3 (0.1-0.6); Monocytes Percent Auto 3.6 % (2.6-8.5); Neutrophils Absolute Auto 17.9 K/mm3 (1.3-6.7); Neutrophils Percent Auto 89.4 % (45.5-73.1); Platelet Count Result 366 k/mm3 (150-375); Red Blood Count 3.03 M/mm3 (4.2-5.4); Red Cell Distribution Width 24.8 % (11.5-14.5)
[2024-07-12 13:20] LABS: Alanine Aminotransferase 34 U/L (6-35); Albumin Level 3.2 g/dL (3.5-5.1); Alkaline Phosphatase 104 U/L (38-126); Anion Gap 12 mmol/L (4-12); Aspartate Amino Transferase 67 U/L (14-36); Bilirubin,Total 0.8 mg/dL (0.2-1.3); Blood Urea Nitrogen 40 mg/dL (7-17); Calcium 8.7 mg/dL (8.4-10.2); Carbon Dioxide 23 mmol/L (22-30); Chloride 98 mmol/L (98-107); Estimated Glomerular Filt Rate 18; Glucose 134 mg/dL (65-110); Potassium 4.4 mmol/L (3.4-5.0); Sodium 133 mmol/L (137-145)
[2024-07-12 13:23] LABS: INR 1.2; Prothrombin Time 15.5 Seconds (11.1-14.7)
[2024-07-12 13:24] LABS: Partial Thromboplastin Time 36.5 Seconds (22.3-36.8)
--- OUTSIDE RECORDS SUMMARY | 2024-07-12 13:58 | XMS_ITS | Encounter Summary ---
Author Organization [facility] Healthcare Address [address] [place] [address] Care Team Providers Care Box Office Agent Name Role Phone Alexa Medrano MD Unavailable [phone] Miscellaneous, Not In File Unavailable Unava ilMariella Singleton MD Primary Care Provider Fiugeroa Patel MD Primary Care Provider Encounter Details Date Type Department Care Team (Late st Contact Info) Description 06/04/2021 Telephone [facility] [address] [place] [address] Tatiana Looney, ADWOA Social History Tobacco Use Types Packs/Day Years Used Date Smoking Tobacco: Never Smokeless Tobacco: Never Alcohol Use Standard Drinks/Week Comments No 0 (1 standard drink = 0.6 oz pur e alcohol) Social Connection and Isolat ion Panel [NHANES] Answer Date Recorded In a typical week, how many times do you talk on the phone with family, friends, or neighbors? More than three times a week 11/22/2020 How often do you get togethe r with friends or relatives? More than three times a week 11/22/2020 Attends Bahai Services Not on file 11/22 Active Member of Clubs or Organizations Not on f ile 11/22/2020 Attends Club or Organization Meetings Not on shanae e 11/22/2020 Are you , , di vorced, , never , or living with a partner? 11/22/2020 AUDIT-C Answer Date Recorded Q1: How often do you have a drink containing alc ohol? Never 11/21/2020 Average Number of Drinks Not on file 021 Q3: How often do you have si x or more drinks on one occasion? Never 11/21/2020 Overall Financial Resource Strain (CARDIA) Answe r Date Recorded How hard is it for you to pa y for the very basics like food, housing, medical care, and heating? Not hard at all 11/22/2020 Hunger Vital Sign Answer Date Recorded Within the past 12 months, y ou worried that your food would run out before you got the money to buy more. Never true 11/23/19 21 Within the past 12 months, t he food you bought just didn't last and you didn't have money to get more. Never true 11/22/2020 PRAPARE - Transportation Answer Date Re corded In the past 12 months, has l ack of transportation kept you from medical appointments or from getting medications? No 11/12 In the past 12 months, has l ack of transportation kept you from meetings, work, or from getting things needed for daily living? No 11/22/2020 Housing Stability Vital Sign Answer Son e Recorded In the last 12 months, was t here a time when you were not able to pay the mortgage or rent on time? No 11/22/2020 Number of Places Lived in the Last Year Not on f ile 11/22/2020 In the last 12 months, was t here a time when you did not have a steady place to sleep or slept in a longterm (including now)? No 11/22/2020 Comments No Sex and Gender Information Value Date Recorded Sex Assigned at Not on file Legal Sex Female 8:19 AM CDT Gender Identity Not on file Sexual Orientation Not on file documented as of this encounter Plan of Treatment Not on file documented as of this encounter Visit Diagnoses Not on filedocumented in this encounter Care Teams Box Office Agent Relationship Specialty Start Date End Date Mariella Frazier MD [address] [place] [address] PCP - General Family Medicine 01/03/21 02/10/24 Figueroa Patel MD [address] [place] [address] PCP - General Internal Medicine 02/11/24 Alexa Medrano MD [address] [place] [address] 11/08/20 Miscellaneous, Not In File 11/15/20 documented as of this encounter
--- OUTSIDE RECORDS SUMMARY | 2024-07-12 13:59 | XMS_ITS | Encounter Summary ---
Author Organization [facility] Healthcare Address [address] [place] [address] Care Team Providers Care Staffing Assistant Name Role Phone No, Physician Primary Care Provider [phone] Unknown, Notinfile Primary Care Provider Unavail able Alexa Medrano MD Unavailable [phone] Miscellaneous, Not In File Unavailable Unava ilable Mariella Frazier MD Primary Care Provider Figueroa Patel MD Primary Care Provider [phone] Encounter Details Date Type Department Care Team (Late st Contact Info) Description 11/22/[address] [facility] Operating Room [address] [place] [address] Jefferson Bains RN Social History Tobacco Use Types Packs/Day Years Used Date Smoking Tobacco: Never Smokeless Tobacco: Never Social Connection and Isolat ion Panel [NHANES] Answer Date Recorded In a typical week, how many times do you talk on the phone with family, friends, or neighbors? More than three times a week 11/22/2020 How often do you get togethe r with friends or relatives? More than three times a week 11/22/2020 Attends Denominational Services Not on file 11/22 Active Member [...] place to sleep or slept in a fpc (including now)? No 11/22/2020 Comments No Sex and Gender Information Value Date Recorded Sex Assigned at Not on file Legal Sex Female 8:19 AM CDT Gender Identity Not on file Sexual Orientation Not on file documented as of this encounter Plan of Treatment Not on file documented as of this encounter Visit Diagnoses Not on filedocumented in this encounter Care Teams Staffing Assistant Relationship Specialty Start Date End Date No, Physician PCP - General 11/22/20 11/25/20 Unknown, Notinfile PCP - General 11/26/20 01/02/21 Mariella Frazier MD [address] [place] [address] PCP - General Family Medicine 01/03/21 02/10/24 Figueroa Patel MD [address] [place] [address] PCP - General Internal Medicine 02/11/24 Alexa Medrano MD [address] [place] [address] 11/08/20 Miscellaneous, Not In File 11/15/20 documented as of this encounter
--- OUTSIDE RECORDS SUMMARY | 2024-07-12 13:59 | XMS_ITS | Continuity of Care Document ---
Author Organization [facility] Address [address] [place] [address] Phone Care Team Providers Care Vault Installer Name Role Phone Vicky Saldana Unavailable Unavailable [...] Copied on Encounter Office/outpat ient Visit, [facility], [address] [place] [address] [address], [place], [place], [id number], [place] tel:[phone] [facility] No Information 0 Shana Han [address] , [address], [place], [address], [place]. tel:[phone] [facility], [address], [place], [place], [id number], [place] tel:[phone] [facility] [place] No Information 4-201 0 Waite OD Theo. [address] , [address], [place], [place], [facility], [place]. tel:[phone] [facility], [address], [place], [place], [address], [place] tel:[phone] [place] [address] No Information 2-201 0 Shana Perry. [address], [place], [facility], [place]. tel:[phone] [facility], [address], [place], [place], [address], [place] tel:[phone] [place] [address] No Information May-3 1-200 9 Waite OD Theo. [address] , [address], [place], [facility], [place]. tel:[phone] [facility], [address], [place], [place], [address], [place] tel:[phone] [place] [address] No Information May-3 0-200 9 Shana Perry. [address], [place], [facility], [place]. tel:[phone] Office/outpat ient Visit, [facility], [address], [place], [place], [address], [place] tel:[phone] [facility] [place] No Information Dec-1 5-200 9 Shana Perry. [address], [place], [facility], [place]. tel:[phone] Referring Provider: Vicky Salmeron, [address], [place], [facility]. tel:[phone] [facility], [address], [place], [place], [address], [place] tel:[phone] [facility] [place] No Information Waldemar-0 9-200 9 Shana Vicky. [address], [place], [facility], . tel:[phone] [facility], [address], [place], [place], [address], tel:[phone] [facility] No Information May-2 0-200 9 Shana Vicky. [address], [place], [facility], . tel:[phone] Office/outpat ient Visit, [facility], [address] [place] [address] [address], [place], [place], [address], tel:[phone] [facility] [place] No Information May-0 8-200 9 Shana Vicky. [address], [place], [facility], . tel:[phone] Office/outpat ient Visit, [facility], [address] [place] [address] [address], [place], [place], [address], tel:[phone] [facility] [place] No Information Nov-0 7-200 8 Shana Wolfn. [address], [place], [facility], . tel:[phone] [facility], [address] [place] [address] [address], [place], [place], [address], [place] tel:[phone] [facility] [place] No Information May-0 2-200 8 Shana Wolfn. [address], [place], [facility], . tel:[phone] [facility], [address] [place] [address] [address], [place], [place], [address], [place] tel:[phone] [facility] No Information Apr-2 0-200 7 Shana Wolfn. [address] , [address], [place], [address], [place]. tel:[phone] Family History Family Member Type Diagnosis Age At Onset No Information Payers Payer name Insurance type Covered democrat ID Authoriza tion(s) No Information Social History [...]
--- OUTSIDE RECORDS SUMMARY | 2024-07-12 13:59 | XMS_ITS | Clinical Summary ---
Author Organization [facility] Address [address] [place] [id number] Care Team Providers Care Otr Tanker Truck Driver Name Role Phone Alexa Medrano MD Unavailable Miscellaneous, Not In File Unavailable Unava ilable Figueroa Patel MD Primary Care Provider Allergies Active Allergy Reactions Criticality Noted Date Comments Morphine Nausea & Vomiting Low 11/19/2020 Tramadol Nausea & Vomiting Low 11/16/2022 Medications blood-glucose meter (Second SightUCH ULTRA2) kit 0 kit 0 3 Active ferrous sulfate 325 mg (65 mg of elemental iron) tabletIndicatio ns:Iron Deficiency Anemia Take 1 tablet (325 mg total) by mouth 2 (two) times a day 8 Active multivitamin tabletIndicatio ns:Vitamin Deficiency Prevention Take 1 tablet by mouth every morning Active polyethylene glycol (MIRALAX) 17 gram packetIndicatio ns:constipation Take 1 packet (17 g total) by mouth daily as needed for constipation 1 Active Additional Information Patient taking differently:17 g oralEvery morning, Indications: constipation, Informant: Self, Reported on 11/16/2022 OneTouch Ultra Blue Test Strip strip 1 Active senna-docusate (PERICOLACE) 8.6-50 mgIndications:c onstipation Take 2 tablets by mouth 2 (two) times a day 1 Active Additional Information Patient taking differently:2 tablet oralEvery morning, Indications: constipation, Informant: Self, Reported on 11/16/2022 albuterol HFA (PROVENTIL HFA,VENTOLIN HFA,PROAIR HFA) 90 mcg/actuation inhalerIndicati ons:post covid Inhale 2 puffs every 6 (six) hours as needed for wheezing 1 Active atorvastatin (LIPITOR) 40 mg tabletIndicatio ns:hyperlipidem ia Take 1 tablet (40 mg total) by mouth nightly 1 Active hydrALAZINE (APRESOLINE) 25 mg tabletIndicatio ns:hypertension Take 1 tablet (25 mg total) by mouth every 8 (eight) hours 1 Active lancets 26 gauge misc Active pantoprazole DR (PROTONIX) 40 mg EC tabletIndicatio ns:Treatment of Non-Bleeding Gastric Disorder Take 1 tablet (40 mg total) by mouth 2 (two) times a day 1 Active metoprolol tartrate (LOPRESSOR) 25 mg immediate release tabletIndicatio ns:hypertension Take 1 tablet (25 mg total) by mouth 2 (two) times a day 1 Active ipratropium-alb uteroL (DUO-NEB) 0.5-2.5 mg/3 mL nebulizer solutionIndicat ions:post covid 3 mL every 6 (six) hours 1 Active ondansetron (ZOFRAN) 4 mg tabletIndicatio ns:nausea Take 1 tablet (4 mg total) by mouth every 8 (eight) hours as needed 1 Active Novofine Autocover 30 gauge x 1/3 needle 3 Active naloxone (NARCAN) 4 mg/actuation spray,non-aeros olIndications:O pioid Toxicity Administer 1 spray into affected nostril(s) as needed 3 Active gabapentin (NEURONTIN) 100 mg capsuleIndicati ons:Neuropathic Pain Take 1 capsule (100 mg total) by mouth 3 (three) times a day 3 Active verapamiL (CALAN) 40 mg tabletIndicatio ns:hypertension Take 1 tablet (40 mg total) by mouth 3 (three) times a day 3 Active fexofenadine (SONIA) 60 mg tabletIndicatio ns:Seasonal Allergic Rhinitis Take 1 tablet (60 mg total) by mouth 2 (two) times a day Active guaiFENesin ER (MUCINEX) 600 mg 12 hr tabletIndicatio ns:Cold Symptoms Take 2 tablets (1,200 mg total) by mouth as needed for cough Active glucagon 1 mg kit Inject 1 mL (1 mg total) into the muscle as instructed every 30 (thirty) minutes as needed (blood glucose less than 70 mg/dL AND no IV access AND unable to take PO glucose/juice.) 3 Active menthol-zinc oxide 0.44-20.6 % ointment Apply topically 2 (two) times a day 3 Active insulin lispro (HumaLOG, ADMELOG) 100 unit/mL pen for injectionIndica tions:type 2 diabetes mellitus 8 units TID AC in addition to the slide TID AC: 150-200 mg/dL - take additional 2 units 200-250 mg/dL - take additional 4 units 250-300 mg/dL - take additional 6 units 300-350 mg/dL - take additional 8 units 350-400 mg/dL - take additional 10 units Over 400 mg/dL - contact MD 15 mL 3 Active insulin glargine 100 unit/mL (3 mL) pen for injection Inject 18 Units under the skin nightly 15 mL 3 Active acetaminophen (TYLENOL) 325 mg tablet Take 2 tablets (650 mg total) by mouth every 6 (six) hours as needed for pain 30 tablet 3 Active NovoLOG 100 unit/mL (3 mL) pen for injection 3 Active traMADoL (ULTRAM) 50 mg tablet 3 Active Active Problems Problem Noted Date Diagnosed Date Sensorineural hearing loss, asymmetrical 024 Other chronic osteomyelitis, left tibia and fibu la 12/03/2022 Assessment & Plan (12/07/2022 1:21 PM CDT): Ms. Ana Maria Catalan is a 86 y.o. female with a PMH of hypertension, Hyperlipidemia, t2DM, CKD, CAD, CVA, carotid stenosis s/p CEA about 4 years ago, diastolic HF, osteopenia, DAVID sustained a fall in 10/2020 resulting in left tibia and fibula fracture. She had ORIF of left tibia, percutaneous fixation of left lateral malleolus fracture on 11/21/20. Post-operatively she developed wound healing issues on the medial aspect of the surgical wound. She also had drainage. She lives [place] and she is not sure if she received antibiotics. On recent Ortho evaluation, the fractures have healed she continued to have drainage and open wound. She was admitted on 12/03/22 and underwent removal of hardware and I&D of the skin, subcutaneous tissue, fascia, tendon, and periosteum, left leg. OR cultures were sent and gram stain shows GPC. 12/03 ESR 11.4, CRP 39 OR cxs only MSSA so far Recommendations: - Continue cefazolin 1gm Q12hrs for 6 weeks -ID will sign off. See summary note for details. Pyogenic inflammation of bone ([facility]) 11/06/19 Assessment & Plan (01/07/2023 3:08 PM CDT): - Doing well on exam today. Surgical incision is healing well with sutures intact. Scant amount of drainage on bandage. She has no pain to ankle. No fevers, chills, etc. Inflammatory markers now normal - Continue IV cefazolin 1g Q12H to complete 6 weeks of therapy for treatment of left tib/fib infection. FIRM STOP on 01/14/23. CVC should be removed when IV antibiotics are completed. Orders written and sent with patient to return to SNF. If CVC unable to be removed at SNF they should call ID clinic so we can arrange for IR removal - No need for technician terminal and repeater suppression as all hardware was removed in surgery. We discussed risk of recurrent infection along with signs/symptoms of recurrent infection Iron deficiency anemia 01/02/2021 Acute ischemic left MCA stroke 12/02/2020 Acute blood loss anemia 11/10/2020 Acute pain due to trauma 11/09/2020 Neuropathy 11/09/2020 Syncope and collapse 11/09/2020 Hyperkalemia 11/09/2020 EDDI (acute kidney injury) 11/09/2020 CKD (chronic kidney disease) 11/09/2020 Type 2 diabetes mellitus, wi th long-term current use of insulin 11/09/2020 CAD (coronary artery disease) 11/09/2020 CHF (congestive heart failure) (CMS/HCC) 021 H/O carotid stenosis 11/09/2020 HTN (hypertension) 11/09/2020 Mixed hyperlipidemia 11/09/2020 DAVID on CPAP 11/09/2020 Pilon fracture of left tibia 11/08/2020 Overview (11/08/2020): Added automatically from request for surgery [id number] Anemia of chronic renal failure 04/26/2019 Malignant neoplasm of upper- outer quadrant of right breast in female, estrogen receptor positive 04/25/2018 Chronic diastolic congestive heart failure (CMS/ HCC) 07/25/2017 Other insomnia 07/25/2017 Post-menopausal 12/18/2016 History of breast cancer 06/20/2015 Osteopenia 06/20/2015 Encounters Date Type Department Care Team Description 04/14/2024 9:45 AM CDT Procedure visit [facility] Otolaryngology [address] [place] [address] Medicine [address] [place] [address] [place] [address] Mayte Colindres Au.D. Sensorineural hearing loss, asymmetrical (Primary Dx); Hearing loss of right ear, unspecified hearing loss type from Last 3 Months Immunizations Name Administration Dates Next Due Tdap 11/08/2020(Deferred: Patient Refused - Patient received Tdap today at [facility] before transfer to [facility] (lot: [id number]; mfg: ALBERT)) Surgical History Surgery Date Site/Laterality Comments CHOLECYSTECTOMY Cholecystectomy MASTECTOMY, PARTIAL CHOLECYSTECTOMY OPEN CAROTID ENDARTERECTOMY Left MASTECTOMY PARTIAL / LUMPECTOMY Right CENTRAL LINE PLACEMENT > 5 YEARS 12/07/2022 N/A Medical History Medical History Date Comments Anemia of chronic kidney failure 2018 Malignant neoplasm of upper- outer quadrant of right female breast (HCC) Chronic diastolic congestive heart failure (CMS/HCC) (HCC) History of anemia due to chr onic kidney disease CAD (coronary artery disease) Chronic diastolic (congestiv e) heart failure (HCC) CKD (chronic kidney disease) Hyperlipidemia Hypertension Malignant neoplasm of upper- outer quadrant of right female breast (HCC) ER DC positive 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 Anastrazole discontinued 06/2020 DAVID (obstructive sleep apnea) On CPAP Osteopenia Type 2 diabetes mellitus (HCC) Carotid stenosis Status post lef t CEA Family History Medical History Relation Name Comments Heart attack Father Myocardial Infa rction; Cause of : Myocardial Infarction Myocardial infarction Father Diabetes type II Mother Diabetes Ty pe II; Cause of : Diabetes Type II Relation Name Status Comments Father (Age 75) Mother (Age 92) Social History Tobacco Use Types Packs/Day Years Used Date Smoking Tobacco: Never Smokeless Tobacco: Never Tobacco Cessation:Counseling Given: Not Answered Alcohol Use Standard Drinks/Week Comments No 0 [...] than three times a week 11/22/2020 Attends Temple Services Not on file 11/22 Active Member of Clubs or Organizations Not on f ile 11/22/2020 Attends Club or Organization Meetings Not on shanae e 11/22/2020 Are you , , di vorced, , never , or living with a partner? 11/22/2020 AUDIT-C Answer Date Recorded Frequency of Alcohol Consumption Not on file 11/16/2022 Average Number of Drinks Not on file 023 Q3: How often do you have si x or more drinks on one occasion? Never 11/16/2022 Overall Financial Resource Strain (CARDIA) Answe r [...] place to sleep or slept in a intermediate (including now)? No 11/22/2020 Personal Safety Answer Date Recorded Have you ever been in or are you currently in a harmful physical or emotional relationship or is someone making you feel afraid or unsafe? Denies 12/07/2022 Comments No Sex and Gender Information Value Date Recorded Sex Assigned at Not on file Legal Sex Female 8:19 AM CDT Gender Identity Not on file Sexual Orientation Not on file Obstetrics History Last Filed Vital Signs Vital Sign Reading Time Taken Comments Blood Pressure 157/52 01/06/2023 3:11 PM CDT Pulse 79 01/06/2023 3:11 PM CDT Temperature 36.8 ??C (98.3 ??F) 01/06/2023 3:11 PM CD T Respiratory Rate 16 12/07/2022 3:14 PM CDT Oxygen Saturation 97% 12/07/2022 3:14 PM CDT Inhaled Oxygen Concentration - - Weight 95.3 kg (210 lb) 12/03/2022 12:00 PM CDT Height 165 cm (5' 4.96 ) 01/06/2023 3:11 PM CDT Body Mass Index 34.95 12/03/2022 12:00 PM CDT Plan of Treatment Health Maintenance Due Date Last Done Comments Albumin Creatinine Ratio, Urine 1935 Depression Screening 1935 Dilated Eye Exam 1935 Foot Exam 1935 Hepatitis B Screening 12/23/1953 Well Visit 65+ 12/23/2000 Zoster Vaccine (2 of 3) 03/20/2014 01/23/2014 Hemoglobin A1C 05/18/2023 11/16/2022, 0 10/2022, 11/19/2020 Lipid Panel 12/04/2023 12/03/2022, 12/02/2020 eGFR 12/07/2023 12/06/2022, 11/13, 12/04/2022, Additional history exists Fall Risk Assessment 12/08/2023 12/07/2022 Influenza Vaccine (#1) 2024 , 03/14/2019, 03/09/2019, Additional history exists DTaP/Tdap/Td Vaccine (3 - Td or Tdap) 11/08/2030 11/08/2020, 03/06/2015 Pneumococcal vaccine 65+ Completed 12/17/2016, 07/16 Medical Devices Implanted Type Area Auricular Acupuncturist Device Identifier Shelf Expiration Date Model / Serial / Lot Implantable Loop Recorder- [id number] Implanted:10/2020 (Quantity not on file) Implantable Loop Recorder Chest Synthes 294.55 Schanz 5mm 170mm 50mm Blunt Trocar Point Xlong Screw External - S000 - [id number] Implanted:Qty: 2 on 11/09/2020 by Blake Barnard MD at [facility] Pin Left: Ankle Synthes I 294.55 / 000 / 000 [employer]/ Ortho [id number] Evos 3.5mm 110mm Self Tap Cortex Screw Bone Sterile - [id number] Implanted:Qty: 1 on 11/21/2020 by Eleuterio Russell MD at [facility] Screw Left: Leg [employer]/O rtho [id number] / / [employer]/ Ortho [id number] Evos 94mm 8 Hole Lock 1/3 Tubular Plate Bone Sterile 3.5mm Screw - [id number] Implanted:Qty: 1 on 11/21/2020 by Eleuterio Russell MD at [facility] Left: Leg [employer]/O rtho [id number] / / [employer]/ Ortho [id number] Evos 94mm 8 Hole Lock 1/3 Tubular Plate Bone Sterile 3.5mm Screw - [id number] Implanted:Qty: 1 on 11/21/2020 by Eleuterio Russell MD at [facility] Left: Leg [employer]/O rtho [id number] / / [employer]/ Ortho [id number] Evos Mini 68mm 8 Hole Low Profile Variable Angle Small Bone Long - [id number] Implanted:Qty: 1 on 11/21/2020 by Eleuterio Russell MD at [facility] Left: Leg [employer]/O rtho [id number] / / Screw- Implanted:Qty: 1 on 11/21/2020 by Eleuterio Russell MD Left: Tibia [employer] [id number] / / [employer]/ Ortho [id number] Evos 3.5mm 28mm Self Tap Cortex Screw Bone Sterile - [id number] Implanted:Qty: 1 on 11/21/2020 by Eleuterio Russell MD at [facility] Left: Leg [employer]/O rtho [id number] / / [employer]/ Ortho [id number] Evos 3.5mm 26mm Self Tap Cortex Screw Bone Sterile - [id number] Implanted:Qty: 1 on 11/21/2020 by Eleuterio Russell MD at [facility] Left: Leg [employer]/O rtho [id number] / / [employer]/ Ortho [id number] Evos 3.5mm 24mm Self Tap Cortex Screw Bone Sterile - [id number] Implanted:Qty: 1 on 11/21/2020 by Eleuterio Russell MD at [facility] Left: Leg [employer]/O rtho [id number] / / [employer]/ Ortho [id number] Evos 4.7mm 28mm Full Thread Screw Bone Sterile Osteopenia - [id number] Implanted:Qty: 1 on 11/21/2020 by Eleuterio Russell MD at [facility] Left: Leg [employer]/O rtho [id number] / / [employer]/ Ortho [id number] 4mm 4.5mm 10mm Self Retaining Screwdriver Tap T8 Full Thread - [id number] Implanted:Qty: 1 on 11/21/2020 by Eleuterio Russell MD at [facility] Left: Leg [employer]/O rtho [id number] / / [employer]/ Ortho [id number] Evos 3.5mm 36mm Self Tap Lock Screw Bone Sterile - [id number] Implanted:Qty: 1 on 11/21/2020 by Eleuterio Russell MD at [facility] Left: Leg [employer]/O rtho [id number] / / [employer]/ Ortho [id number] 2.7mm 4.5mm 22mm Self Retaining Screwdriver Self Tap Flat Head - [id number] Implanted:Qty: 1 on 11/21/2020 by Eleuterio Russell MD at [facility] Left: Leg [employer]/O rtho [id number] / / [employer]/ Ortho [id number] 2.7mm 4.3mm 44mm Lock Self Retain Flat Head Long Bone Small Bone - [id number] Implanted:Qty: 2 on 11/21/2020 by Eleuterio Russell MD at [facility] Left: Leg [employer]/O rtho [id number] / / Daig Krzysztof [id number] Device Closure Angio-Seal Vip Bondek-Plus Polyglyd L70 Cm Od6 Fr Odsec.035 In Vascular - [id number] Implanted:Qty: 1 on 06/04/2021 at [facility] [employer] Krzysztof 11/11/2021 [id number] / / [id number] Explanted Type Area Auricular Acupuncturist Device Identifier Shelf Expiration Date Model / Serial / Lot [employer]/Or tho [id number] 2.7mm 4.3mm 32mm Lock Self Retain Flat Head Long Bone Small Bone - [id number] Explanted:Qty: 1 on 11/21/2020 by Eleuterio Russell MD at [facility] Left: Leg [employer]/Or tho [id number] / / [employer] [id number] Van .062in 9in Trocar Point One End Orthopedic Wire - [id number] Explanted:Qty: 3 on 11/21/2020 by Eleuterio Russell MD at [facility] Left: Leg [employer] [id number] / / Procedures Procedure Name Priority Date/Time Associated Diagnosis Comments AUDBASE RESULTS 04/14/2024 9:52 AM CDT EGFR Routine 12/06/2022 10:12 PM CDT LIPID PANEL Routine 12/03/2022 9:24 PM CDT POCT HEMOGLOBIN A1C Routine 11/16/2022 3 :12 PM CDT from Last 3 Months or Most Recently Relevant to Health Maintenance Results * AudBase Results (04/14/2024 9:52 AM CDT) us Provider Scanning AUDIOLOGY SERVICES ORDERABLES Final Result * (ABNORMAL) eGFR (12/06/2022 10:12 PM CDT) eGFR 27(L) 90 - 130 mL/min/1. 73 m2 [facility] Comment: Interpretive Data Reference Interval Normal ?>/= 90 mL/min/1.73m2 Mildly decreased* ? 60 - 89 mL/min/1.73m2 Mildly to moderately decreased ?45 - 59 mL/min/1.73m2 Moderately to severely decreased ??30 - 44 mL/min/1.73m2 Severely decreased ?15 - 29 mL/min/1.73m2 Kidney Failure ?< 15 ??mL/min/1.73m2 *Relative to young adult level Estimated glomerular filtration rate is determined by the 2020 CKD-EPI equation recommended by the National Kidney Foundation (A Unifying Approach to GFR Estimation: Recommendations of the NKF-ASK Task Force on Reassessing the Inclusion of Race in Diagnosing Kidney Disease, JASN 2020). The CKD-EPI equation should not be used for patients with unstable renal function and has not been validated in children and those over 70. Current interpretive data was last reviewed 2021. Blood 12/06/2022 10:1 2 PM CDT 12/06/2022 10:26 PM CDT us Theresa Mcgrath NP LAB BLOOD ORDERABLES Nikki caraballo Result [facility] [place] [address] * Lipid panel (12/03/2022 9:24 PM CDT) Cholesterol 122 30 - 199 mg/dL [facility] Comment: Interpretive Data Ages < or = 19 years ??Acceptable: ? <170 mg/dL ??Borderline high: ??170-199 mg/dL ??High: ? >or= 200 mg/dL Ages > or = 20 years ??Desirable: ?<200 mg/dL ??Borderline high: ??200-239 mg/dL ??High: ? >or= 240 mg/dL Literature References: 1. Expert Panel on Integrated Guidelines for Cardiovascular Health and Risk Reduction in Children and Adolescents. Pediatrics 2011;128:S213 2. NCEP Expert Panel. Circulation 2004;110:227 Current Interpretive Data was last revised on 2018. Triglycerides 130 <=149 mg/dL [facility] Comment: Interpretive Data Ages < or = 9 years ??Acceptable: ? <75 mg/dL ??Borderline high: ??75-99 mg/dL ??High: ? >or= 100 mg/dL Ages 10 to 20 years ??Acceptable: ? <90 mg/dL ??Borderline high: ??90-129 mg/dL ??High: ? >or= 130 mg/dL Ages > or = 20 years ??Desirable: ?<150 mg/dL ??Borderline high: ??150-199 mg/dL ??High: ? 200-499 mg/dL ?Very high: ?? >or= 499 mg/dL Literature References: 1. Expert Panel on Integrated Guidelines for Cardiovascular Health and Risk Reduction in Children and Adolescents. Pediatrics 2011;128:S213 2. NCEP Expert Panel. Circulation 2004;110:227 Current Interpretive Data was last revised on 2018. HDL 40 >=40 mg/dL [facility] Comment: Interpretive Data Ages < or = 19 years ??Acceptable: ? >45 mg/dL ??Borderline low: ?? 40-45 mg/dL ??Low: ? <40 mg/dL Ages > or = 20 years ??Desirable: ?>or= 60 mg/dL ??Low: ? <40 mg/dL Literature References: 1. Expert Panel on Integrated Guidelines for Cardiovascular Health and Risk Reduction in Children and Adolescents. Pediatrics 2011;128:S213 2. NCEP Expert Panel. Circulation 2004;110:227 Current Interpretive Data was last revised on 2018. LDL, calculated 56 <=129 mg/dL [facility] Comment: Interpretive Data Ages < or = 19 years ??Acceptable: ? <110 mg/dL ??Borderline high: ??110-129 mg/dL ??High: ?>or= 130 mg/dL Ages > or = 20 years ??Optimal: ? <100 mg/dL ??Near optimal: ?100-129 mg/dL ??Borderline high: ?? 130-159 mg/dL ??High: ?>160 mg/dL Literature References: 1. Expert Panel on Integrated Guidelines for Cardiovascular Health and Risk Reduction in Children and Adolescents. Pediatrics 2011;128:S213 2. NCEP Expert Panel. Circulation 2004;110:227 Current Interpretive Data was last revised on 2018. Non-HDL Cholesterol 82 mg/dL [facility] Comment: Interpretive Data Ages < or = 19 years ??Acceptable: ?<120 mg/dL ??Borderline high: ??120-144 mg/dL ??High: ?>145 mg/dL Ages > or = 20 years ??When triglycerides are >200 mg/dL, Non-HDL cholesterol is a secondary target of ? therapy with treatment goals that are 30 mg/dL greater than the LDL cholesterol target. ? Literature References: 1. Expert Panel on Integrated Guidelines for Cardiovascular Health and Risk Reduction in Children and Adolescents. Pediatrics 2011;128:S213 2. NCEP Expert Panel. Circulation 2004;110:227 Current Interpretive Data was last revised on 2018. Chol/HDL ratio 3 [facility] Blood 12/03/2022 9:24 PM CDT 12/03/2022 10:37 PM CDT us Eleuterio Russell MD LAB BLOOD ORDERA BLES Final Result [facility] [place] [address] * (ABNORMAL) POCT hemoglobin A1c (11/16/2022 3:12 PM CDT) Hgb A1C, POC 6.5(H) 4.0 - 5.6 % [facility] Est Average Gluc POC 140 mg/dL [facility] Comment: The ADA recommends reporting an estimated Average Glucose (eAG) with all Hemoglobin A1c results using the equation derived from a study of 507 normal and diabetic adults. ??Minority populations were underrepresented and children were not included. ?? (Diabetes Care 31:5438-3860, 2008). ??The eAG is not equivalent to a fasting glucose. Blood 11/16/2022 3:12 PM CDT 11/16/2022 3:12 PM CDT us Eleuterio Russell MD POINT OF CARE TE ST ORDERABLES Final Result [facility] [place] [address] from Last 3 Months or Most Recently Relevant to Health Maintenance Insurance [place] [address] MEDICARE MEDICARE Advance Directives For more information, please contact: [phone] Documents on File Type Date Recorded Patient Wharfmaster Expl anation ADVANCE DIRECTIVE 12/03/2022 6:07 AM Power of Weapons Officer-Medical * Full Code (Latest Code Status on File) Date Activated Date Inactivated Comments 12/03/2022 12:36 PM 12/07/2022 9:43 PM * Full Code Date Activated Date Inactivated Comments 11/21/2020 1:28 PM 11/26/2020 7:51 PM * Full Code Date Activated Date Inactivated Comments 11/09/2020 10:21 PM 11/15/2020 7:03 PM * Full Code Date Activated Date Inactivated Comments 11/08/2020 8:26 PM 11/09/2020 10:21 PM Care Teams Otr Tanker Truck Driver Relationship Specialty Start Date End Date Figueroa Patel MD [address] [place] [address] PCP - General Internal Medicine 02/11/24 Alexa Medrano MD [address] [place] [address] 11/08/20 Miscellaneous, Not In File 11/15/20
--- OUTSIDE RECORDS SUMMARY | 2024-07-12 13:59 | XMS_ITS ---
Author Organization [facility] Address [address] [place] [id number] Care Team Providers Care Watch Assembler Name Role Phone Alexa Medrano MD Unavailable [phone] Miscellaneous, Not In File Unavailable Unava ilable Figueroa Patel MD Primary Care Provider Active Problems Problem Noted Date Diagnosed Date Sensorineural hearing loss, asymmetrical 024 Other chronic osteomyelitis, left tibia and fibu la 12/03/2022 Assessment & Plan (12/07/2022 1:21 PM CDT): Ms. Ana Maria Mccain is a 86 y.o. female with a [...] also had drainage. She lives in a senior living and she is not sure if she [...] note for details. Pyogenic inflammation of bone ([facility]) 11/06/19 Assessment & [...] and sent with patient to return to [facility]. If CVC unable to be removed at [facility] they should call ID clinic so we can arrange for IR removal - No need for long-term suppression as all hardware was removed in [...] artery disease) 11/09/2020 CHF (congestive heart failure) ([facility]) 021 H/O carotid stenosis 11/09/2020 HTN (hypertension) 11/09/2020 Mixed hyperlipidemia 11/09/2020 DAVID on CPAP 11/09/2020 Pilon fracture of left tibia 11/08/2020 Overview (11/08/2020): Added automatically from request for surgery [id number] Anemia of chronic renal failure 04/26/2019 Malignant neoplasm of upper- outer quadrant of right breast in female, estrogen receptor positive 04/25/2018 Chronic diastolic congestive heart failure (CMS/ HCC) 07/25/2017 Other insomnia 07/25/2017 Post-menopausal 12/18/2016 History of breast cancer 06/20/2015 Osteopenia 06/20/2015 Current Oncology Plans No current plan information found. Past Plans No past plan information found. Radiation Treatments * No radiation treatments are documented for this patient in [facility]. Treatments may have been administered in another system. Lifetime Dose Tracking * Chemical Lifetime Dose Automatic Entry Manual Entr y Fluoro Time 49.03 minutes 49.03 minutes 0 minutes Air kerma at the reference point (Ka,r) 66.63 mGy 6 6.63 mGy 0 mGy DLP 521 mGycm 521 mGycm 0 mGycm
--- OUTSIDE RECORDS SUMMARY | 2024-07-12 13:59 | XMS_ITS | Referral Summary ---
Author Organization [facility] Address [address] [place] [id number] Care Team Providers Care Billet Checker Name Role Phone Alexa Medrano MD Unavailable Miscellaneous, Not In File Unavailable Unava ilable Figueroa Patel MD Primary Care Provider [phone] Encounters Date Type Department Care Team Description 04/14/2024 9:45 AM CDT Procedure visit [facility] Otol[facility]ology [address] [place] [address] [place] [address] Mayte Colindres Au.D. Sensorineural hearing loss, asymmetrical (Primary Dx); Hearing loss of right ear, unspecified hearing loss type from Last 3 Months Allergies Active Allergy Reactions Criticality Noted Date Comments Morphine Nausea & Vomiting Low 11/19/2020 Tramadol Nausea & Vomiting Low 11/16/2022 Medications blood-glucose meter (ONETOUCH ULTRA2) kit 0 kit 0 3 Active [...] also had drainage. She lives in a detention and she is not sure if she [...] note for details. Pyogenic inflammation of bone ([facility]) 11/06/19 Assessment & Plan (01/07/2023 [...] for IR removal - No need for prison suppression as all hardware was removed in [...] (11/08/2020): Added automatically from request for surgery [id number] Anemia of chronic renal failure 04/26/2019 Malignant neoplasm of upper- outer quadrant of right breast in female, estrogen receptor positive 04/25/2018 Chronic diastolic congestive heart failure (CMS/ HCC) 07/25/2017 Other insomnia 07/25/2017 Post-menopausal 12/18/2016 History of breast cancer 06/20/2015 Osteopenia 06/20/2015 Immunizations Name Administration Dates Next Due Tdap 11/08/2020(Deferred: Patient Refused - Patient received Tdap today at [facility] before transfer to [facility] (lot: [id number]; mfg: [id number])) Social History Tobacco Use Types Packs/Day Years [...] than three times a week 11/22/2020 Attends [employer] Not on file 06/11 /2021 Active Member of Clubs or Organizations Not [...] place to sleep or slept in a care home (including now)? No 11/22/2020 Personal Safety Answer [...] on file Sexual Orientation Not on file Last Filed Vital Signs Vital Sign Reading [...] 12/03/2022 12:00 PM CDT Plan of Treatment Not on file Medical Devices Implanted Type Area Prototype Technician Device Identifier Shelf Expiration Date Model / Serial / Lot Implantable Loop Recorder- 021 Implanted:10/2020 (Quantity not on file) Implantable Loop Recorder Chest Synthes 294.55 Schanz 5mm 170mm 50mm Blunt Trocar Point Xlong Screw External - S000 - [id number] Implanted:Qty: 2 on 11/09/2020 by Blake Barnard MD at [facility] Pin Left: Ankle Synthes I 294.55 / 000 / 000 [employer]/ Ortho [id number] Evos 3.5mm 110mm Self Tap Cortex Screw Bone Sterile - [id number] Implanted:Qty: 1 on 11/21/2020 by Eleuterio Russell MD at [facility] Screw Left: Leg [employer]/O rtho [id number] / / [employer]/ Ortho [id number] Evos 94mm 8 Hole Lock 1/3 Tubular Plate Bone Sterile 3.5mm Screw - [id number] Implanted:Qty: 1 on 11/21/2020 by Eleuterio Russell MD at [facility] Left: Leg [employer]/O rtho [id number] / / [employer]/ Ortho [id number] Evos 94mm 8 Hole Lock 1/3 Tubular Plate Bone Sterile 3.5mm Screw - [id number] Implanted:Qty: 1 on 11/21/2020 by Eleuterio Russell MD at [facility] Left: Leg [employer]/O rtho [id number] / / [employer]/ Ortho [id number] Evos Mini 68mm 8 Hole Low Profile Variable Angle Small Bone Long - [id number] Implanted:Qty: 1 on 11/21/2020 by Eleuterio Russell MD at [facility] Left: Leg [employer]/O rtho [id number] / / Screw- Implanted:Qty: 1 on 11/21/2020 by Eleuterio Russell MD Left: Tibia [employer] [id number] / / [employer]/ Ortho [id number] Evos 3.5mm 28mm Self Tap Cortex Screw Bone Sterile - [id number] Implanted:Qty: 1 on 11/21/2020 by Eleuterio Russell MD at [facility] Left: Leg [employer]/O rtho [id number] / / [employer]/ Ortho [id number] Evos 3.5mm 26mm Self Tap Cortex Screw Bone Sterile - [id number] Implanted:Qty: 1 on 11/21/2020 by Eleuterio Russell MD at [facility] Left: Leg [employer]/O rtho [id number] / / [employer]/ Ortho [id number] Evos 3.5mm 24mm Self Tap Cortex Screw Bone Sterile - [id number] Implanted:Qty: 1 on 11/21/2020 by Eleuterio Russell MD at [facility] Left: Leg [employer]O [employer]tho [id number] / / [employer]/ Ortho [id number] Evos 4.7mm 28mm Full Thread Screw Bone Sterile Osteopenia - [id number] Implanted:Qty: 1 on 11/21/2020 by Eleuterio Russell MD at [facility] Left: Leg [employer]/O rtho [id number] / / [employer]/ Ortho [id number] 4mm 4.5mm 10mm Self Retaining Screwdriver Tap T8 Full Thread - [id number] Implanted:Qty: 1 on 11/21/2020 by Eleuterio Russell MD at [facility] Left: Leg [employer]/O rtho [id number] / / [employer]/ Ortho [id number] Evos 3.5mm 36mm Self Tap Lock Screw Bone Sterile - [id number] Implanted:Qty: 1 on 11/21/2020 by Eleuterio Russell MD at [facility] Left: Leg [employer]/O rtho [id number] / / [employer]/ Ortho [id number] 2.7mm 4.5mm 22mm Self Retaining Screwdriver Self Tap Flat Head - [id number] Implanted:Qty: 1 on 11/21/2020 by Eleuterio Russell MD at [facility] Left: Leg [employer]/O rtho [id number] / / [employer]/ Ortho [id number] 2.7mm 4.3mm 44mm Lock Self Retain Flat Head Long Bone Small Bone - [id number] Implanted:Qty: 2 on 11/21/2020 by Eleuterio Russell MD at [facility] Left: Leg [employer]/O rtho [id number] / / Daig Krzysztof [id number] Device Closure Angio-Seal Vip Bondek-Plus Polyglyd L70 Cm Od6 Fr Odsec.035 In Vascular - [id number] Implanted:Qty: 1 on 06/04/2021 at [facility] [employer] Krzysztof 11/11/2021 [id number] / / [id number] Explanted Type Area Prototype Technician Device Identifier Shelf Expiration Date Model / Serial / Lot [employer]Rich[employer]/Or tho [id number] 2.7mm 4.3mm 32mm Lock Self Retain Flat Head Long Bone Small Bone - [id number] Explanted:Qty: 1 on 11/21/2020 by Eleuterio Russell MD at [facility] Left: Leg [employer]/Or tho [id number] / / [employer] [id number] Van .062in 9in Trocar Point One End Orthopedic Wire - [id number] Explanted:Qty: 3 on 11/21/2020 by Eleuterio Russell MD at [facility] Left: Leg [employer] [id number] / / Procedures Procedure Name Priority Date/Time [...] 90 - 130 mL/min/1. 73 m2 [facility] Comment: Interpretive Data Reference Interval Normal ?>/= [...] NP LAB BLOOD ORDERABLES Nikki caraballo Result [facility] [place] [address] * Lipid panel (12/03/2022 9:24 PM CDT) [facility] Cholesterol 122 30 - 199 mg/dL [facility] Comment: Interpretive Data Ages [...] revised on 2018. HDL 40 >=40 mg/dL [facility] Comment: Interpretive Data Ages < or = [...] on 2018. LDL, calculated 56 <=129 mg/dL [facility] Comment: Interpretive Data Ages < or = [...] revised on 2018. Non-HDL Cholesterol 82 mg/dL [facility] Comment: Interpretive Data Ages < or = [...] last revised on 2018. Chol/HDL ratio 3 [facility] Blood 12/03/2022 9:24 PM CDT 12/03/2022 10:37 PM CDT us Eleuterio Russell MD LAB BLOOD ORDERA BLES Final Result [facility] [place] [address] * (ABNORMAL) POCT hemoglobin A1c (11/16/2022 3:12 PM CDT) Hgb A1C, POC 6.5(H) 4.0 - 5.6 % [facility] Est Average Gluc POC 140 mg/dL [facility] Comment: The ADA recommends reporting an estimated Average Glucose (eAG) with all Hemoglobin A1c results using the equation derived from a study of 507 normal and diabetic adults. ??Minority populations were underrepresented and children were not included. ?? (Diabetes Care 31:7474-6954, 2008). ??The eAG is not equivalent to a fasting glucose. Blood 11/16/2022 3:12 PM CDT 11/16/2022 3:12 PM CDT Eleuterio Russell MD POINT OF CARE TE ST ORDERABLES Final Result [facility] [place] [address] from Last 3 Months or Most Recently Relevant to Health Maintenance Insurance [place] [address] MEDICARE MEDICARE Advance Directives For more information, please contact: [phone] Documents on File Type Date Recorded Patient Windows Infrastructure Engineer Expl anation ADVANCE DIRECTIVE 12/03/2022 6:07 AM Power of Tool Crib Supervisor-Medical * Full Code (Latest Code Status on File) Date Activated Date Inactivated Comments 12/03/2022 12:36 PM 12/07/2022 9:43 PM * Full Code Date Activated Date Inactivated Comments 11/21/2020 1:28 PM 11/26/2020 7:51 PM * Full Code Date Activated Date Inactivated Comments 11/09/2020 10:21 PM 11/15/2020 7:03 PM * Full Code Date Activated Date Inactivated Comments 11/08/2020 8:26 PM 11/09/2020 10:21 PM Care Teams Billet Checker Relationship Specialty Start Date End Date Figueroa Patel MD [address] [place] [address] PCP - General Internal Medicine 02/11/24 Alexa Medrano MD [address] [place] [address] 11/08/20 Miscellaneous, Not In File 11/15/20
[2024-07-12 14:02] LABS: Hypochromasia 1+; Platelet Estimate Adequate (Adequate)
[2024-07-12 14:03] LABS: Anisocytosis 1+; Ovalocytes 1+; Schistocytes None Seen
[2024-07-12 14:05] LABS: Add Urine Microscopic? YES; Appearance Urine Clear (Clear); Bacteria Urine 4+ /hpf; Bilirubin Urine Negative (Negative); Blood Urine Negative (Negative); Color Urine Yellow (Yellow); Glucose Urine UA Negative (Negative); Ketones Urine Trace mg/dL (Negative); Leukocyte Esterase Ur 1+ LEU/UL (Negative); Nitrate Urine Negative (Negative); Non Pathogenic Casts 0-2; Protein Urine 1+ mg/dL (Negative); RBC Urine 0-2 /hpf (0-2); Specific Grav Ur 1.016 (1.001-1.035); Squamous Epithelial Cell Urine None Seen /hpf (Few); Urobilinogen Urine 0.2 mg/dL (<2.0)
--- NOTE | 2024-07-12 14:14 | ED.GENADULT ---
HPI - General Adult General Chief complaint: Altered Mental Status Stated complaint: AMS Time Seen by Provider: 07/12/24 12:55 History of Present Illness HPI narrative: 88-year-old female present to the emergency department for evaluation for altered mental status and increased generalized fatigue. Patient reportedly had an episode of altered mental status. alf reported that the patient was slumped over in her wheelchair. Patient's family member is present and states that the patient does 10 to slump due to her prior history of CVA. Patient's family members felt that the patient was more sedate than usual but the patient is rather sedate and bed bound at baseline. Patient denies any pain or complaint but is somnolent, patient does respond to voice. Related Data Home Medications ?Medication ?Instructions ?Recorded ?Confirmed ?Last Taken ?Type ferrous sulfate 325 mg (65 mg 325 mg PO BID 05/31/19 07/12/24 Unknown History iron) tablet Lantus Solostar U-100 Insulin 18 units subcut HS 03/08/21 07/12/24 Unknown History Dextrose Gel 15 g PO Q15M PRN Hypoglycemia 03/26/21 07/12/24 Unknown History atorvastatin 40 mg tablet 40 mg PO HS 03/26/21 07/12/24 Unknown History fexofenadine 60 mg tablet (Alise 60 mg PO Q12H 03/26/21 07/12/24 Unknown History Allergy) glucagon HCl 1 mg solution for 1 mg subcut Q20M PRN Hypoglycemia 03/26/21 07/12/24 Unknown History injection (Glucagon (HCl) Emergency Kit) hydralazine 25 mg tablet 25 mg PO TID 03/26/21 07/12/24 Unknown History ipratropium 0.5 mg-albuterol 3 mg 3 ml inhalation QID PRN Shortness 03/26/21 07/12/24 Unknown History (2.5 mg base)/3 mL nebulization Of Breath soln metoprolol tartrate 25 mg tablet 25 mg PO BID 03/26/21 07/12/24 Unknown History albuterol sulfate 90 mcg/actuation 2 puff inhalation QID PRN SOB or 03/28/24 07/12/24 Unknown History aerosol inhaler wheezing ascorbic acid (vitamin C) 500 mg 500 mg PO DAILY 03/28/24 07/12/24 Unknown History tablet benzonatate 100 mg capsule 100 mg PO TID 03/28/24 07/12/24 Unknown History gabapentin 100 mg capsule 100 mg PO TID 03/28/24 07/12/24 Unknown History gentamicin 0.1 % topical cream 1 applic topical PRN PRN Wound Care 03/28/24 07/12/24 Unknown History guaifenesin 600 mg tablet, 600 mg PO Q8H 03/28/24 07/12/24 Unknown History extended release 12 hr (Mucinex) insulin aspart U-100 100 unit/mL 1 sliding scale dose subcut 03/28/24 07/12/24 Unknown History subcutaneous solution (Novolog USEASDIRECTD U-100 Insulin aspart) multivitamin 1 tablet PO DAILY 03/28/24 07/12/24 Unknown History naloxone 4 mg/actuation nasal 1 spray intranasal Q2-3M PRN 03/28/24 07/12/24 Unknown History spray (Narcan) Opioid Overdose ondansetron 4 mg disintegrating 4 mg PO Q8H PRN Nausea 03/28/24 07/12/24 Unknown History tablet pantoprazole 40 mg tablet,delayed 40 mg PO QAM 03/28/24 07/12/24 Unknown History release polyethylene glycol 3350 17 17 g PO DAILY 03/28/24 07/12/24 Unknown History gram/dose oral powder (Miralax) sennosides 8.6 mg-docusate sodium 1 tab-cap PO DAILY 03/28/24 07/12/24 Unknown History 50 mg tablet (Senna with Docusate Sodium) tramadol 50 mg tablet 40 mg PO TID PRN Pain 03/28/24 07/12/24 Unknown History verapamil 40 mg tablet 40 mg PO Q8H 03/28/24 07/12/24 Unknown History Allergies Allergy/AdvReac Type Severity Reaction Status Date / Time morphine Allergy Unknown Verified 03/30/24 13:13 tramadol Allergy Unknown Verified 03/30/24 13:13 Review of Systems Review of Systems: All systems reviewed & are unremarkable except as noted in HPI and below [facility] Past Medical History Medical History (Updated 07/12/24 @ 14:44 by Shanique Brand, WINDER TENDER) Systolic murmur Peripheral arterial disease Chronic obstructive pulmonary disease CHF (congestive heart failure) CVA (cerebral vascular accident) Chronic kidney disease, stage 3 Cancer of right breast Insulin dependent type 2 diabetes mellitus Deep venous thrombosis Hypertension Obstructive sleep apnea previously on ASV Iron deficiency anemia Osteopenia Pulmonary nodules Stable Last CT-Scan 03/08/2017. Surgical History Surgical History History of cholecystectomy History of carotid endarterectomy Family History Family History Mother Family history of diabetes mellitus in first degree relative Family history of malignant neoplasm of uterus, Onset Age: 48 Hypertension, Onset Age: 92 Family history of malignant neoplasm of ovary Diabetes mellitus, Onset Age: 92 Family history of cardiovascular disease, Onset Age: 92 Father Family history of heart disease in male family member before age 55 Hypertension, Onset Age: 75 Family history of cardiovascular disease, Onset Age: 75 Sibling Diabetes mellitus Other Family history of malignant neoplasm of male breast Social History Social History Social History: Surrogate medical decision maker: Joan Westbrook, friend. Code status: Do not resuscitate. Smoking status: Never smoker Alcohol intake: never Do You Feel Safe in your Home?: Yes Lack of Transportation: No Lack of Food: Never True Current Housing: I Have Housing Concerned About Future Housing: No Difficulty Paying Gas/Electric Bills: No Difficulty Paying for Meds: No Currently Unemployed: No Education: High School Diploma/GED Difficulty w/ Childcare or Family Care: No Spiritual care concerns: No Exam Narrative: APPEARANCE: Ill-appearing HEAD: normocephalic, atraumatic. EYES: PERRLA/EOMI, conjunctivae clear. NOSE: Normal no drainage EARS:TMS clear with good light reflex. THROAT: Pharynx clear, no exudate. NECK: Supple. No adenopathy, no masses. RESPIRATORY: Airway patent, respirations nonlabored. Clear to auscultation bilaterally, no rales, rhonchi, wheezing. CARDIOVASCULAR: Regular rate and rhythm without murmurs rubs or gallops. ABDOMINAL: Soft, nontender, nondistended, normal bowel sounds MUSCULOSKELETAL: Moves all extremities. Strength/ROM intact, No edema, No calf tenderness. NEURO: Alert. Cranial nerves II through XII intact. Good gait. Good coordination SKIN: Warm, dry. Normal Color Course Vital Signs Vital signs: Vital Signs Temperature 97.4 F L 01/29/25 12:38 Pulse Rate 85 07/12/24 12:38 Respiratory Rate 21 H 07/12/24 12:38 Blood Pressure 158/49 H 07/12/24 12:38 Pulse Oximetry 98 07/12/24 12:38 Oxygen Delivery Room Air 07/12/24 12:38 Temperature 97.4 F L 07/12/24 12:38 Pulse Rate 85 07/12/24 12:38 Respiratory Rate 21 H 07/12/24 12:38 Blood Pressure 158/49 H 07/12/24 12:38 Pulse Oximetry 98 07/12/24 12:38 Oxygen Delivery Room Air 07/12/24 16:30 Medical Decision Making MDM Narrative Medical decision making narrative: 88-year-old female presented to the emergency department for evaluation for altered mental status. Patient is afebrile but does have a white blood cell count of 20, patient has a hemoglobin of 8 which is not far from her baseline. Patient does have a creatinine of 2.54 reflective of acute kidney injury with a typical baseline creatinine closer to 1.5 UA did have trace ketones leukocyte esterase positive with 10 to white blood cells +4 bacteria on a cath sample. Patient was started on antibiotics for urinary tract infection. Other source of infection was identified. Case was discussed with hospitalist patient was accepted for admission. Differential Diagnosis Differential Diagnosis: Colitis, diverticulitis, influenza, RSV Vital Signs Vital Signs: Vital Signs Temperature 97.4 F L 07/12/24 12:38 Pulse Rate 85 07/12/24 12:38 Respiratory Rate 21 H 07/12/24 12:38 Blood Pressure 158/49 H 07/12/24 12:38 Pulse Oximetry 98 07/12/24 12:38 Oxygen Delivery Room Air 07/12/24 12:38 Temperature 97.4 F L 07/12/24 12:38 Pulse Rate 85 07/12/24 12:38 Respiratory Rate 21 H 07/12/24 12:38 Blood Pressure 158/49 H 07/12/24 12:38 Pulse Oximetry 98 07/12/24 12:38 Oxygen Delivery Room Air 07/12/24 16:30 Lab Data 07/12/24 13:02 07/12/24 13:02 Labs: Lab Results 07/12/24 07/12/24 07/12/24 Range/Units 13:02 13:32 13:58 WBC 20.0 H (4.5-10.0) K/mm3 RBC 3.03 L (4.2-5.4) M/mm3 Hgb 8.0 L (12.0-15.0) g/dL Hct 26.2 L (37.0-47.0) % MCV 86.5 (80-100) fl MCH 26.4 (26-34) pg MCHC 30.5 L (32-36) g/dl RDW 24.8 H (11.5-14.5) % Plt Count 366 (150-375) k/mm3 MPV 11.4 H (7.4-10.4) fl Immature Gran % (Auto) 0.5 (0-0.5) % Neut % (Auto) 89.4 H (45.5-73.1) % Lymph % (Auto) 5.9 L (18.3-44.2) % Bremer % (Auto) 3.6 (2.6-8.5) % Eos % (Auto) 0.1 (0-4.4) % Baso % (Auto) 0.5 (0.2-1.2) % Lymph # (Auto) 1.18 (0.9-3.2) K/mm3 Bremer # (Auto) 0.7 H (0.1-0.6) K/mm3 Eos # (Auto) 0.0 (0-0.3) K/mm3 Baso # (Auto) 0.1 (0.0-0.1) K/mm3 Abs Immat Gran (auto) 0.10 H (0.00-0.031) K/mm3 Absolute Neuts (auto) 17.9 H (1.3-6.7) K/mm3 Absolute Nucleated RBC 0.000 (0.0-0.012) K/mm3 Nucleated RBC % 0.0 (0.0-0.2) % Platelet Estimate Adequate (Adequate) % Immature Plt Fraction 5.0 (0.9-11.2) % Hypochromasia 1+ Anisocytosis 1+ Ovalocytes 1+ Schistocytes None seen PT 15.5 H (11.1-14.7) Seconds INR 1.2 APTT 36.5 (22.3-36.8) Seconds Sodium 133 L (137-145) mmol/L Potassium 4.4 (3.4-5.0) mmol/L Chloride 98 (98-107) mmol/L Carbon Dioxide 23 (22-30) mmol/L Anion Gap 12 (4-12) mmol/L BUN 40 H D (7-17) mg/dL Creatinine 2.54 H (0.7-1.0) mg/dL Estim Creat Clear Calc Not Reportable Estimated GFR 18 L (59 - ) Glucose 134 H (65-110) mg/dL Calcium 8.7 (8.4-10.2) mg/dL Total Bilirubin 0.8 (0.2-1.3) mg/dL AST 67 H (14-36) U/L ALT 34 (6-35) U/L Alkaline Phosphatase 104 (38-126) U/L Total Protein 7.0 (6.3-8.2) g/dL Albumin 3.2 L (3.5-5.1) g/dL Urine Color Yellow (Yellow) Urine Appearance Clear (Clear) Urine pH 5.0 (5.0-9.0) Ur Specific [place] 1.016 (1.001-1.035) Urine Protein 1+ H (Negative) mg/dL Urine Glucose (UA) Negative (Negative) mg/dL Urine Ketones Trace H (Negative) mg/dL Ur Blood (Man) Negative (Negative) Urine Nitrate Negative (Negative) Urine Bilirubin Negative (Negative) Urine Urobilinogen 0.2 (<2.0) mg/dL Leukocyte Esterase Rfl 1+ H (Negative) MELVIN/UL Urine RBC 0-2 (0-2) /hpf Urine WBC 6-10 H (0-3) /hpf Ur Squamous Epith Cells None seen (Few) /hpf Urine Bacteria 4+ H /hpf Urine Casts 0-2 Influenza A (RT-PCR) Negative (Negative) Influenza B (RT-PCR) Negative (Negative) RSV (RT-PCR) Negative (Negative) SARS-CoV-2 RNA (RT-PCR) Negative (Negative) Discharge Plan Discharge Clinical Impression: Acute UTI, EDDI (acute kidney injury) Patient Disposition: Still a Patient Condition: Stable
--- NOTE | 2024-07-12 14:27 | P.HP_ITS ---
H&P: HPI History of Present Illness Date/Time: 07/12/24 14:27 Chief Complaint: AMS Narrative: 88 y/o F presents here with AMS with PMH of chronic kidney disease, diabetes, DVT, hypertension, peripheral artery disease, DAVID, iron deficiency anemia, COPD, sleep apnea, and osteopenia. The patient presents here with possible AMS from [facility] via EMS. HPI obtained through provider report, EMS report, chart review, and patient's POA. Staff reported to EMS that they noted the patient was slumped over and appeared altered. Per patient's family member in the ED, she is frequently slumped over in her wheelchair (typically to the right, but does go both ways) at baseline secondary to a previous CVA. Patient is not typically confused and does not typically have difficulty with the year, place, short term memory, or people. Weakness and slumped appearance are patient's baseline, however the level of somnolence and confusion are new for her. She is bed-bound at baseline. She currently denies pain, unable to obtain further information due to mental status. Initial VS at presentation: 97.4? F, HR 85, RR 21, 158/49, and 98% on RA. ED workup showed: WBC 20, hemoglobin 8.0 (previously 8.1 on 04/01/2024), INR 1.2, sodium 133, creatinine 2.54 and GFR 18 (previously 1.4 and 35 on 04/01/24), glucose 134, and UA suspicious for UTI. Viral PCR pending. Head CT showed old infarcts in the brain and moderate nonspecific cerebral white matter disease. Chest x-ray showed no acute cardiopulmonary disease. Review of Systems Review of Systems: All systems reviewed & are unremarkable except as noted in HPI and below [facility]LY [facility] Past Medical History Medical History (Updated 07/12/24 @ 14:44 by Shanique Brand APRN) Systolic murmur Peripheral arterial disease Chronic obstructive pulmonary disease CHF (congestive heart failure) CVA (cerebral vascular accident) Chronic kidney disease, stage 3 Cancer of right breast Insulin dependent type 2 diabetes mellitus Deep venous thrombosis Hypertension Obstructive sleep apnea previously on ASV Iron deficiency anemia Osteopenia Pulmonary nodules Stable Last CT-Scan 03/08/2017. Surgical History Surgical History History of cholecystectomy History of carotid endarterectomy Family History Family History Mother Family history of diabetes mellitus in first degree relative Family history of malignant neoplasm of uterus, Onset Age: 48 Hypertension, Onset Age: 92 Family history of malignant neoplasm of ovary Diabetes mellitus, Onset Age: 92 Family history of cardiovascular disease, Onset Age: 92 Father Family history of heart disease in male family member before age 55 Hypertension, Onset Age: 75 Family history of cardiovascular disease, Onset Age: 75 Sibling Diabetes mellitus Other Family history of malignant neoplasm of male breast Social History Social History Social History: Surrogate medical decision maker: Joan Westbrook, friend. Code status: Do not resuscitate. Smoking status: Never smoker Alcohol intake: never Do You Feel Safe in your Home?: Yes Lack of Transportation: No Lack of Food: Never True Current Housing: I Have Housing Concerned About Future Housing: No Difficulty Paying Gas/Electric Bills: No Difficulty Paying for Meds: No Currently Unemployed: No Education: High School Diploma/GED Difficulty w/ Childcare or Family Care: No Spiritual care concerns: No Meds Home Medications and Allergies Home Medications ?Medication ?Instructions ?Recorded ?Confirmed ?Type ferrous sulfate 325 mg (65 mg 325 mg PO BID 05/31/19 07/12/24 History iron) tablet Lantus Solostar U-100 Insulin 18 units subcut HS 03/08/21 07/12/24 History Dextrose Gel 15 g PO Q15M PRN Hypoglycemia 03/26/21 07/12/24 History atorvastatin 40 mg tablet 40 mg PO HS 03/26/21 07/12/24 History fexofenadine 60 mg tablet (Alise 60 mg PO Q12H 03/26/21 07/12/24 History Allergy) glucagon HCl 1 mg solution for 1 mg subcut Q20M PRN Hypoglycemia 03/26/21 07/12/24 History injection (Glucagon (HCl) Emergency Kit) hydralazine 25 mg tablet 25 mg PO TID 03/26/21 07/12/24 History ipratropium 0.5 mg-albuterol 3 mg 3 ml inhalation QID PRN Shortness 03/26/21 07/12/24 History (2.5 mg base)/3 mL nebulization Of Breath soln metoprolol tartrate 25 mg tablet 25 mg PO BID 03/26/21 07/12/24 History albuterol sulfate 90 mcg/actuation 2 puff inhalation QID PRN SOB or 03/28/24 07/12/24 History aerosol inhaler wheezing ascorbic acid (vitamin C) 500 mg 500 mg PO DAILY 03/28/24 07/12/24 History tablet benzonatate 100 mg capsule 100 mg PO TID 03/28/24 07/12/24 History gabapentin 100 mg capsule 100 mg PO TID 03/28/24 07/12/24 History gentamicin 0.1 % topical cream 1 applic topical PRN PRN Wound Care 03/28/24 07/12/24 History guaifenesin 600 mg tablet, 600 mg PO Q8H 03/28/24 07/12/24 History extended release 12 hr (Mucinex) insulin aspart U-100 100 unit/mL 1 sliding scale dose subcut 03/28/24 07/12/24 History subcutaneous solution (Novolog USEASDIRECTD U-100 Insulin aspart) multivitamin 1 tablet PO DAILY 03/28/24 07/12/24 History naloxone 4 mg/actuation nasal 1 spray intranasal Q2-3M PRN 03/28/24 07/12/24 History spray (Narcan) Opioid Overdose ondansetron 4 mg disintegrating 4 mg PO Q8H PRN Nausea 03/28/24 07/12/24 History tablet pantoprazole 40 mg tablet,delayed 40 mg PO QAM 03/28/24 07/12/24 History release polyethylene glycol 3350 17 17 g PO DAILY 03/28/24 07/12/24 History gram/dose oral powder (Miralax) sennosides 8.6 mg-docusate sodium 1 tab-cap PO DAILY 03/28/24 07/12/24 History 50 mg tablet (Senna with Docusate Sodium) tramadol 50 mg tablet 40 mg PO TID PRN Pain 03/28/24 07/12/24 History verapamil 40 mg tablet 40 mg PO Q8H 03/28/24 07/12/24 History Allergies Allergy/AdvReac Type Severity Reaction Status Date / Time morphine Allergy Unknown Verified 03/30/24 13:13 tramadol Allergy Unknown Verified 03/30/24 13:13 Vital Signs Vital Signs - 24 hr 07/12/24 12:38 07/12/24 12:47 Temperature 97.4 F L Pulse Rate 85 Respiratory Rate 21 H Blood Pressure 158/49 H Pulse Oximetry 98 Oxygen Delivery Room Air Room Air Exam Const: Other: , female, obese body habitus, ill-appearing HENMT: Face/Nose/Sinus: Normal nares present Mouth: Yes dry mucous membranes Eyes: General: appearance normal, both eyes and all related structures Sclera: sclerae normal Pupils: Equal, round and reactive pupils present EOM: EOMs intact bilaterally Resp: Effort & Inspection: normal respiratory effort Auscultation: clear to auscultation bilaterally Cardio: Rate: regular rate Rhythm: regular rhythm Other: +murmur GI: Other: Abdomen soft, nondistended, nontender. Normoactive bowel sounds in all quadrants. Skin: General skin exam: normal color and no rashes or lesions noted Wounds: wounds noted (Pressure wound to left buttock) Neuro: Other: 2+ right tape sewing machine operator, 1+ left tape sewing machine operator. 2+ in BLE. +profound generalized weakness. difficult getting patient to participate in exam. Currently awakening to voice with intermittent response to yes/no questions, but inconsistent. +somnolence. Unable to assess further. Extrem: General: normal to inspection Psych: Other: Poor insight and judgment present. H&P: Results Labs Labs: Short CBC 07/12/24 Range/Units 13:02 WBC 20.0 H (4.5-10.0) K/mm3 Hgb 8.0 L (12.0-15.0) g/dL Hct 26.2 L (37.0-47.0) % Plt Count 366 (150-375) k/mm3 BMP 07/12/24 13:02 Sodium 133 L Potassium 4.4 Chloride 98 Carbon Dioxide 23 BUN 40 H D Creatinine 2.54 H Glucose 134 H Calcium 8.7 Liver Function 07/12/24 Range/Units 13:02 Total Bilirubin 0.8 (0.2-1.3) mg/dL AST 67 H (14-36) U/L ALT 34 (6-35) U/L Alkaline Phosphatase 104 (38-126) U/L Albumin 3.2 L (3.5-5.1) g/dL Urine 07/12/24 Range/Units 13:32 Urine Color Yellow (Yellow) Urine Appearance Clear (Clear) Urine pH 5.0 (5.0-9.0) Ur Specific Triplett 1.016 (1.001-1.035) Urine Protein 1+ H (Negative) mg/dL Urine Glucose (UA) Negative (Negative) mg/dL Assessment and Plan Assessment and plan (1) Sepsis: Qualifiers: Acute renal failure type: unspecified Sepsis acute organ dysfunction status: with acute organ dysfunction Sepsis type: sepsis due to unspecified organism Severe sepsis acute organ dysfunction type: acute renal failure Severe sepsis shock status: without septic shock Qualified Code(s): A41.9 - Sepsis, unspecified organism; R65.20 - Severe sepsis without septic shock; N17.9 - Acute kidney failure, unspecified Code(s): A41.9 - Sepsis, unspecified organism Status: Acute Assessment and Plan: - meets SIRS criteria: respiratory rate, WBC. No hypoxia or hypotension. - lactic acid pending. If elevated, add procalcitonin. - IV fluids: 1L bolus -> 100 mL/hr x 1L - suspected source: UTI - started on ceftriaxone - blood cultures drawn on 07/12, follow - monitor hemodynamic stability (2) Acute UTI: Code(s): N39.0 - Urinary tract infection, site not specified Status: Acute Assessment and Plan: - UA: 1+ protein, trace ketones, 1+ leuks, 6-10 WBC, 4+ bacteria, no epithelial cells. - UC pending - previous micro reviewed, no previous urinary resistances - started on Ceftriaxone on 07/12 (3) Acute kidney injury superimposed on CKD: Code(s): N17.9 - Acute kidney failure, unspecified; N18.9 - Chronic kidney disease, unspecified Status: Acute Assessment and Plan: - creatinine 2.54 and GFR 18, previously 1.4 and GFR 35 on 04/01/2024 - suspect injury is multifactorial including dehydration and UTI, will trial rehydration/abx for the next 24 hours. If no improvement, consider Nephrology consultation. - monitor I&Os - trend renal function - trend electrolytes, correct as needed (4) Altered mental status: Qualifiers: Altered mental status type: disorientation Qualified Code(s): R41.0 - Disorientation, unspecified Code(s): R41.82 - Altered mental status, unspecified Status: Acute Assessment and Plan: Metabolic encephalopathy secondary to UTI v new CVA. - head CT: 1. 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 2. Moderate nonspecific cerebral white matter disease, which likely represents chronic small vessel ischemic disease. - MR brain w/o con, will defer neurology consultation until resulted to assess if appropriate - CXR: No acute cardiopulmonary disease - viral PCR negative - hemoglobin 8.0, at baseline - UA consistent with UTI - neuro checks q.4 - hold gabapentin and tramadol (5) Iron deficiency anemia: Qualifiers: Iron deficiency anemia type: unspecified iron deficiency Qualified Code(s): D50.9 - Iron deficiency anemia, unspecified Code(s): D50.9 - Iron deficiency anemia, unspecified Status: Chronic Assessment and Plan: - Hgb 8.0, previously 0.1 on 04/01/2024, at baseline. - continue home medication: Ferrous sulfate 325 b.i.d. - trend (6) Insulin dependent type 2 diabetes mellitus: Code(s): E11.9 - Type 2 diabetes mellitus without complications; Z79.4 - salvage determiner (current) use of insulin Status: Chronic Assessment and Plan: - hypoglycemia protocol - POC blood glucose ACHS - home medication: NovoLog sliding scale, Lantus 18 units HS - correct regimen ordered - low dose TIDWM, based off TDD - A1C 6.9% on 03/28/2024, update (7) Hypertension: Qualifiers: Hypertension type: unspecified Qualified Code(s): I10 - Essential (primary) hypertension Code(s): I10 - Essential (primary) hypertension Status: Chronic Assessment and Plan: - chronic, currently 158/49 - continue home medications: Hydralazine 25 mg t.i.d., metoprolol 25 mg b.i.d., verapamil 40 mg q.8 - monitor (8) Obstructive sleep apnea: Code(s): G47.33 - Obstructive sleep apnea (adult) (pediatric) Status: Chronic Assessment and Plan: - does not tolerate Plan Additionally has chronic left buttock pressure wound. Wound RN consulted. Diet: Heart healthy GI Prophylaxis: Not currently indicated DVT Prophylaxis: Lines: Peripheral Code Status: DNR Quality VTE Prophylaxis VTE prophylaxis: mechanical ordered Hospitalist MIPS Advance Care Plan I have confirmed that the patient's Advanced Care Plan is present, code status is documented, or surrogate decision maker is listed in patient medical record.: Yes Medication Reconciliation I have utilized all available resources to obtain, update and review the patients current medications (includes all prescriptions, OTC, herbals, cannabis, and nutritional supplements).: Yes
[2024-07-12 14:43] LABS: Influenza A QL RT-PCR Negative (Negative); Influenza B QL RT-PCR Negative (Negative); RSV RNA, RT-PCR Negative (Negative); SARS-CoV-2 RNA PCR Negative (Negative)
[2024-07-12] MEDS: SODIUM CHLORIDE 0.9% IV 1,000 ML 999 ML IV CONT (14:47)
[2024-07-12 14:55] LABS: Magnesium 1.6 mg/dL (1.6-2.3)
[2024-07-12 15:57] LABS: Lactic Acid Reflex 1.9 mmol/L (0.7-2.0)
[2024-07-12 16:28] LABS: Glucose Point of Care 86 mg/dl (65-105)
[2024-07-12] MEDS: SODIUM CHLORIDE 0.9% IV 1,000 ML 100 ML IV CONT (16:33)
--- NOTE | 2024-07-12 17:20 | ADMGEN ---
This patient, Ana Maria Mccain, was admitted to [facility] Surg Room 331-02. Patient/family oriented to hospital policies and general routines including ID bracelet, bed and alarms, visiting hours, pain management, procedures, bathroom and other care routines, personal items, smoking policy, room service/diet, and visiting hours. Information on how to activate the Rapid Response Team has been discussed. Patient/Family are encouraged to report perceived risks to care and to ask questions if they do not understand what they are told or what they should do.
[2024-07-12] MEDS: hydrALAZINE HCL 25 MG TABLET PO (18:06)
[2024-07-12 20:36] LABS: Glucose Point of Care 103 mg/dl (65-105)
[2024-07-12 21:23] VITALS: BP 135/63; PULSE 90; RESP 20; TEMP 37.2; O2SAT 98
[2024-07-12 23:43] LABS: Glucose Point of Care 107 mg/dl (65-105)
[2024-07-13] VITALS (11 sets, daily range): BP systolic 121–144; BP diastolic 41–87; PULSE 63–86; RESP 16–22; TEMP 36.1–36.8; O2SAT 96–100; BMI 27.6
[2024-07-13] MEDS: VERAPAMIL HCL 40 MG TABLET PO ×3 (05:45→20:42)
[2024-07-13 06:00] LABS: Glucose Point of Care 90 mg/dl (65-105)
[2024-07-13 06:30] LABS: Basophils Absolute Auto 0.1 K/mm3 (0.0-0.1); Basophils Percent Auto 0.6 % (0.2-1.2); Eosinophils Absolute Auto 0.1 K/mm3 (0-0.3); Eosinophils Percent Auto 1.2 % (0-4.4); Immature Granulocyte Absolute 0.04 K/mm3 (0.00-0.031); Immature Granulocyte Percent A 0.4 % (0-0.5); Lymphocytes Percent Auto 12.8 % (18.3-44.2); Mean Corpuscular HGB Conc 29.8 g/dl (32-36); Mean Corpuscular Hemoglobin 26.2 pg (26-34); Mean Corpuscular Volume 87.8 fl (80-100); Mean Platelet Volume 11.7 fl (7.4-10.4); Monocytes Absolute Auto 0.8 K/mm3 (0.1-0.6); Monocytes Percent Auto 7.3 % (2.6-8.5); Neutrophils Absolute Auto 8.5 K/mm3 (1.3-6.7); Neutrophils Percent Auto 77.7 % (45.5-73.1); Platelet Count Result 281 k/mm3 (150-375); Red Blood Count 2.37 M/mm3 (4.2-5.4); Red Cell Distribution Width 24.5 % (11.5-14.5); White Blood Count 10.9 K/mm3 (4.5-10.0)
[2024-07-13 06:40] LABS: Anion Gap 9 mmol/L (4-12); Blood Urea Nitrogen 35 mg/dL (7-17); Calcium 7.9 mg/dL (8.4-10.2); Carbon Dioxide 22 mmol/L (22-30); Chloride 105 mmol/L (98-107); Estimated CRCL calculation 15 ml/min; Estimated Glomerular Filt Rate 19; Glucose 90 mg/dL (65-110); Potassium 3.9 mmol/L (3.4-5.0); Sodium 136 mmol/L (137-145)
[2024-07-13 07:12] LABS: Hematocrit 20.8 % (37.0-47.0); Hemoglobin 6.2 g/dL (12.0-15.0)
[2024-07-13 07:14] LABS: Anisocytosis 2+; Platelet Estimate Adequate (Adequate)
[2024-07-13 07:15] LABS: Ovalocytes 1+; Target Cells 1+
[2024-07-13 07:17] LABS: Hypochromasia 1+; Poikilocytosis 1+; Schistocytes Rare
[2024-07-13 07:48] LABS: Hemoglobin A1C 6.4 % (<5.7)
[2024-07-13] MEDS: ACETAMINOPHEN 325 MG TABLET 650 MG PO (08:22)
[2024-07-13] MEDS: FERROUS SULFATE 325 MG TABLET DR PO ×2 (08:23→17:32)
[2024-07-13] MEDS: METOPROLOL TARTRATE 25 MG TABLET PO ×2 (08:23→20:42)
[2024-07-13] MEDS: SENNA/DOCUSATE SODIUM TABLET 1 TAB PO (08:23)
[2024-07-13] MEDS: hydrALAZINE HCL 25 MG TABLET PO ×3 (08:23→17:32)
--- NOTE | 2024-07-13 08:26 | P.PNIM_ITS ---
Progress Note: A&P Assessment and Plan (1) Sepsis: Qualifiers: Acute renal failure type: unspecified Sepsis acute organ dysfunction status: with acute organ dysfunction Sepsis type: sepsis due to unspecified or ganism Severe sepsis acute organ dysfunction type: acute renal failure Severe sepsis shock status: without septic shock Qualified Code(s): A41.9 - Sepsis, unspecified organism; R65.20 - Severe sepsis without septic shock; N17.9 - Acute kidney failure, unspecified Code(s): A41.9 - Sepsis, unspecified organism Status: Acute Assessment and Plan: patient met criteria for sepsis without septic shock secondary to urinary tract infection elevated WBC, tachycardia, EDDI, altered mental status * lactic acid pending 1.9 * responded to IV fluids * started on ceftriaxone * blood cultures NGTD (2) Acute UTI: Code(s): N39.0 - Urinary tract infection, site not specified Status: Acute Assessment and Plan: * UA: 1+ protein, trace ketones, 1+ leuks, 6-10 WBC, 4+ bacteria, no epithelial cells. * UC pending * started on Ceftriaxone pending UC (3) Acute kidney injury superimposed on CKD: Code(s): N17.9 - Acute kidney failure, unspecified; N18.9 - Chronic kidney disease, uns pecified Status: Acute Assessment and Plan: creatinine 2.54 and GFR 18, previously 1.4 and GFR 35 on 04/01/2024 * suspect injury is multifactorial including dehydration and UTI, will trial rehydration/abx for the next 24 hours. HX of HTN, diabetes * responding to IV hydration. * Avoid nephrotoxic drugs. * Monitor antihypertensive drug therapy. * Avoid NSAIDs. * Routine CMP monitoring GFR. * Monitor electrolytes especially potassium. * Antibiotic doses depending on creatinine clearance. (4) Altered mental status: Qualifiers: Altered mental status type: disorientation Qualified Code(s): R41.0 - Disorientation, unspecified Code(s): R41.82 - Altered mental status, unspecified Status: Acute Assessment and Plan: Metabolic encephalopathy secondary to UTI v new CVA. * head CT: 1. 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 2. Moderate nonspecific cerebral white matter disease, which likely represents chronic small vessel ischemic disease. * MR brain w/o con, will defer neurology consultation until resulted to assess if appropriate * CXR: No acute cardiopulmonary disease * viral PCR negative * UTI * neuro checks q.4 * hold gabapentin and tramadol * PT/OT pending (5) Iron deficiency anemia: Qualifiers: Iron deficiency anemia type: unspecified iron deficiency Qualified Code(s): D50.9 - Iron deficiency anemia, unspecified Code(s): D50.9 - Iron deficiency anemia, unspecified Status: Chronic Assessment and Plan: * Hgb 8.0, previously 0.1 on 04/01/2024, at baseline. * continue home medication: Ferrous sulfate 325 b.i.d. 07/13 * Hgb 6.2 GIB vs dilution after IV fluid resuscitation * transfuse 1 unit PRBC * F/U hgb q6 hr * PPI BID * occult stool ordered * Will tranfuse PRBC if Hgb <7.0 * hemodynamically stable continue to monitor BP (6) Insulin dependent type 2 diabetes mellitus: Code(s): E11.9 - Type 2 diabetes mellitus without complications; Z79.4 - petroleum terminal plant operator (current) use of insulin Status: Chronic Assessment and Plan: * Accu-Cheks a.c. HS * sliding scale insulin * hold oral diabetic medications * resume patient's home long-acting * Hemoglobin A1c 6.8 * Diabetic diet * Optimize Scott inhibitors and statins. * Watch for hypoglycemia/hypoglycemic protocol ordered (7) Hypertension: Qualifiers: Hypertension type: unspecified Qualified Code(s): I10 - Essential (primary) hypertension Code(s): I10 - Essential (primary) hypertension Status: Chronic Assessment and Plan: * chronic, currently 158/49 * continue home medications: Hydralazine 25 mg t.i.d., metoprolol 25 mg b.i.d., verapamil 40 mg q.8 * BP per unit protocol (8) Obstructive sleep apnea: Code(s): G47.33 - Obstructive sleep apnea (adult) (pediatric) Status: Chronic Assessment and Plan: * Did not tolerate ASV * Oxygen PRN Plan Code status: DNR DVT prophylaxis: SCD Stress ulcer prophylaxis: Protonix 40 BID PT/OT notes: Pending Disposition: Patient was admitted to the medical unit for further evaluation and treatment of sepsis without septic shock secondary to UTI and possible CVA. Patient with low hemoglobin is being transfused 1 unit PRBCs currently no evidence of GIB occult stool pending. PT/ OT has been ordered for further recommendations patient will likely return back to long-term facility when medically stable. Time Spent With Patient Time with patient: 15 - 25 minutes Subjective Date/time seen: 07/13/24 08:26 Interval history: patient is an 88-year-old female who was admitted to the medical unit for further evaluation and treatment of sepsis secondary to UTI without septic shock and altered mental status. Patient was started on IV antibiotic therapy pending culture and MR brain pending to rule out CVA. 07/13/24: Assumed Care Patient alert and oriented 1 to 2 lethargic but was answering questions unknown baseline at this time. RN reported she was more alert then previous day. MRI pending need clearance on loop recorder placed. Hgb dropped to 6.2 1 unit PRBC transfused. Patient reported feeling better. Review of Systems Review of Systems: All systems reviewed & are unremarkable except as noted in HPI and below Exam Narrative: * GENERAL: Alert and oriented x 2 lethargic. No acute distress. * EYES: EOMI. No scleral icterus. PERRLA. * HEENT: Moist mucous membranes. * LUNGS: Clear to auscultation bilaterally. No accessory muscle use. * CARDIOVASCULAR: Regular rate and rhythm. * ABDOMEN: Soft, non tenderness and non-distended. No palpable masses. * EXTREMITIES: 1+ edema. Non-tender * SKIN:Pressure wound to left buttockNo rashes or lesions. Skin warm, dry. * NEUROLOGIC: No focal neurological deficits. CN II-XII grossly intact. Strength equal bilateral upper and lower extremities, Generalized weakness no noted deficits * PSYCHIATRIC: Unable to assess lethargic Objective Data Vital Signs Vital Signs: Vital Signs - 24 hr 07/12/24 12:38 07/12/24 12:47 07/12/24 16:30 Temperature 97.4 F L Pulse Rate 85 Respiratory Rate 21 H Blood Pressure 158/49 H Pulse Oximetry 98 Oxygen Delivery Room Air Room Air Room Air 07/12/24 20:00 07/12/24 21:23 07/13/24 06:00 Temperature 98.9 F 98.2 F Pulse Rate 90 86 Respiratory Rate 20 18 Blood Pressure 135/63 121/87 Pulse Oximetry 98 100 Oxygen Delivery Room Air 07/13/24 08:23 Temperature Pulse Rate 82 Respiratory Rate Blood Pressure Pulse Oximetry Oxygen Delivery Intake/Output Intake/Output: Intake & Output 07/10/24 07/11/24 07/12/24 07/13/24 23:59 23:59 23:59 23:59 Intake Total 1050 1200 Output Total 100 175 Balance 950 1025 Meds/Results Medications: Active Medications Generic Name Dose Route Start Last Admin Trade Name Freq PRN Reason Stop Dose Admin Acetaminophen 650 mg 07/12/24 14:42 07/13/24 08:22 Acetaminophen 325 Mg Tablet PO 650 mg Q4H PRN Administration Mild Pain (1-3) or Fever Albuterol 2 puff 07/12/24 17:35 Albuterol Sulfate (*Sp) Aerosol 1 Puff INHALATION QID PRN SOB or wheezing Albuterol/Ipratropium 3 ml 07/12/24 17:35 Ipratropium 0.5 Mg/Albuterol Sulfate 2.5 Mg Ampul.Neb 3 Ml INHALATION QID PRN Shortness Of Breath Atorvastatin Calcium 40 mg 07/12/24 21:00 07/12/24 21:32 Atorvastatin 40 Mg Tablet PO Not Given HS EPIFANIO Dextrose 12.5 gm 07/12/24 14:45 Dextrose 50% 25 Gm/50 Ml Syringe IV PUSH PRN PRN Hypoglycemia Protocol Ferrous Sulfate 325 mg 07/13/24 09:00 07/13/24 08:23 Ferrous Sulfate [address] PO 325 mg BID EPIFANIO Administration Gentamicin Sulfate 1 applic 07/12/24 17:35 Gentamicin Sulfate 0.1% Cr 15 Gm Tube TOPICAL PRN PRN Wound Care Glucagon 1 mg 07/12/24 14:45 Glucagon For Inj 1 Mg Vial IM PRN PRN Hypoglycemia Protocol Glucose 15 gm 07/12/24 14:45 Glucose Oral Gel 15 Gm Of Glucse In 37.5 Gm Tube PO PRN PRN Hypoglycemia Protocol Hydralazine HCl 25 mg 07/12/24 17:45 07/13/24 08:23 Hydralazine Hcl 25 Mg Tablet PO 25 mg TID EPIFANIO Administration Ceftriaxone Sodium 1 gm in 50 mls @ 100 mls/hr 07/13/24 14:00 Rocephin 1 Gm/Ns 50 Ml IVPB Q24H EPIFANIO Dextrose 1,000 mls @ 100 mls/hr 07/12/24 14:45 Dextrose 5% 1,000 Ml IVPB PRN PRN Hypoglycemia Protocol Sodium Chloride 250 mls @ 30 mls/hr 07/13/24 07:21 Normal Saline Iv IV CONT 07/13/24 15:40 .Q8H20M STA Insulin Aspart 2 - 5 units 07/12/24 17:00 07/12/24 16:36 Insulin Aspart (*Bkc) 100 Units/Ml SUB-Q Not Given TIDWM EPIFANIO Protocol Insulin Glargine 18 units 07/12/24 21:00 07/12/24 21:32 Insulin Glargine (*Bkc) 100 Units/Ml SUB-Q Not Given HS EPIFANIO Metoprolol Tartrate 25 mg 07/12/24 21:00 07/13/24 08:23 Metoprolol Tartrate 25 Mg Tablet PO 25 mg Q12HR EPIFANIO Administration Senna/Docusate Sodium 1 tab 07/13/24 09:00 07/13/24 08:23 Senna/Docusate Sodium Tablet PO 1 tab DAILY EPIFANIO Administration Verapamil HCl 40 mg 07/12/24 22:00 07/13/24 05:45 Verapamil Hcl 40 Mg Tablet PO 40 mg Q8H EPIFANIO Administration Radiology Results: ITS Impressions Head CT 07/12/24 14:08 IMPRESSION: 1. Old infarcts in the brain. 2. Moderate nonspecific cerebral white matter disease, which likely represents chronic small vessel ischemic disease. Chest X-Ray 07/12/24 14:18 Impression: 1: No acute cardiopulmonary disease. Labs Labs: Laboratory Results - last 24 hr 07/12/24 07/12/24 07/12/24 13:02 13:32 13:58 WBC 20.0 H RBC 3.03 L Hgb 8.0 L Hct 26.2 L MCV 86.5 MCH 26.4 MCHC 30.5 L RDW 24.8 H Plt Count 366 MPV 11.4 H Immature Gran % (Auto) 0.5 Neut % (Auto) 89.4 H Lymph % (Auto) 5.9 L [place] % (Auto) 3.6 Eos % (Auto) 0.1 Baso % (Auto) 0.5 Lymph # (Auto) 1.18 [place] # (Auto) 0.7 H Eos # (Auto) 0.0 Baso # (Auto) 0.1 Abs Immat Gran (auto) 0.10 H Absolute Neuts (auto) 17.9 H Absolute Nucleated RBC 0.000 Nucleated RBC % 0.0 Platelet Estimate Adequate % Immature Plt Fraction 5.0 Hypochromasia 1+ Poikilocytosis Anisocytosis 1+ Target Cells Ovalocytes 1+ Schistocytes None seen PT 15.5 H INR 1.2 APTT 36.5 Sodium 133 L Potassium 4.4 Chloride 98 Carbon Dioxide 23 Anion Gap 12 BUN 40 H D Creatinine 2.54 H Estim Creat Clear Calc Not Reportable Estimated GFR 18 L Glucose 134 H POC Capillary Glucose Hemoglobin A1c Lactic Acid Calcium 8.7 Magnesium Total Bilirubin 0.8 AST 67 H ALT 34 Alkaline Phosphatase 104 Total Protein 7.0 Albumin 3.2 L TSH (Reflex) Urine Color Yellow Urine Appearance Clear Urine pH 5.0 Ur Specific [place] 1.016 Urine Protein 1+ H Urine Glucose (UA) Negative Urine Ketones Trace H Ur Blood (Man) Negative Urine Nitrate Negative Urine Bilirubin Negative Urine Urobilinogen 0.2 Leukocyte Esterase Rfl 1+ H Urine RBC 0-2 Urine WBC 6-10 H Ur Squamous Epith Cells None seen Urine Bacteria 4+ H Urine Casts 0-2 Influenza A (RT-PCR) Negative Influenza B (RT-PCR) Negative RSV (RT-PCR) Negative SARS-CoV-2 RNA (RT-PCR) Negative 07/12/24 07/12/24 07/12/24 14:38 15:39 16:18 WBC RBC Hgb Hct MCV MCH MCHC RDW Plt Count MPV Immature Gran % (Auto) Neut % (Auto) Lymph % (Auto) [place] % (Auto) Eos % (Auto) Baso % (Auto) Lymph # (Auto) [place] # (Auto) Eos # (Auto) Baso # (Auto) Abs Immat Gran (auto) Absolute Neuts (auto) Absolute Nucleated RBC Nucleated RBC % Platelet Estimate % Immature Plt Fraction Hypochromasia Poikilocytosis Anisocytosis Target Cells Ovalocytes Schistocytes PT INR APTT Sodium Potassium Chloride Carbon Dioxide Anion Gap BUN Creatinine Estim Creat Clear Calc Estimated GFR Glucose POC Capillary Glucose 86 Hemoglobin A1c Lactic Acid 1.9 Calcium Magnesium 1.6 Total Bilirubin AST ALT Alkaline Phosphatase Total Protein Albumin TSH (Reflex) 3.000 Urine Color Urine Appearance Urine pH Ur Specific [place] Urine Protein Urine Glucose (UA) Urine Ketones Ur Blood (Man) Urine Nitrate Urine Bilirubin Urine Urobilinogen Leukocyte Esterase Rfl Urine RBC Urine WBC Ur Squamous Epith Cells Urine Bacteria Urine Casts Influenza A (RT-PCR) Influenza B (RT-PCR) RSV (RT-PCR) SARS-CoV-2 RNA (RT-PCR) 07/12/24 07/12/24 07/13/24 20:03 23:35 05:51 WBC RBC Hgb Hct MCV MCH MCHC RDW Plt Count MPV Immature Gran % (Auto) Neut % (Auto) Lymph % (Auto) [place] % (Auto) Eos % (Auto) Baso % (Auto) Lymph # (Auto) [place] # (Auto) Eos # (Auto) Baso # (Auto) Abs Immat Gran (auto) Absolute Neuts (auto) Absolute Nucleated RBC Nucleated RBC % Platelet Estimate % Immature Plt Fraction Hypochromasia Poikilocytosis Anisocytosis Target Cells Ovalocytes Schistocytes PT INR APTT Sodium Potassium Chloride Carbon Dioxide Anion Gap BUN Creatinine Estim Creat Clear Calc Estimated GFR Glucose POC Capillary Glucose 103 107 H 90 Hemoglobin A1c Lactic Acid Calcium Magnesium Total Bilirubin AST ALT Alkaline Phosphatase Total Protein Albumin TSH (Reflex) Urine Color Urine Appearance Urine pH Ur Specific [place] Urine Protein Urine Glucose (UA) Urine Ketones Ur Blood (Man) Urine Nitrate Urine Bilirubin Urine Urobilinogen Leukocyte Esterase Rfl Urine RBC Urine WBC Ur Squamous Epith Cells Urine Bacteria Urine Casts Influenza A (RT-PCR) Influenza B (RT-PCR) RSV (RT-PCR) SARS-CoV-2 RNA (RT-PCR) 07/13/24 06:11 WBC 10.9 H RBC 2.37 L Hgb 6.2 L* Hct 20.8 L* MCV 87.8 MCH 26.2 MCHC 29.8 L RDW 24.5 H Plt Count 281 MPV 11.7 H Immature Gran % (Auto) 0.4 Neut % (Auto) 77.7 H Lymph % (Auto) 12.8 L [place] % (Auto) 7.3 Eos % (Auto) 1.2 Baso % (Auto) 0.6 Lymph # (Auto) 1.40 [place] # (Auto) 0.8 H Eos # (Auto) 0.1 Baso # (Auto) 0.1 Abs Immat Gran (auto) 0.04 H Absolute Neuts (auto) 8.5 H Absolute Nucleated RBC 0.000 Nucleated RBC % 0.0 Platelet Estimate Adequate % Immature Plt Fraction Hypochromasia 1+ Poikilocytosis 1+ Anisocytosis 2+ Target Cells 1+ Ovalocytes 1+ Schistocytes Rare PT INR APTT Sodium 136 L Potassium 3.9 Chloride 105 Carbon Dioxide 22 Anion Gap 9 BUN 35 H Creatinine 2.37 H Estim Creat Clear Calc 15 Estimated GFR 19 L Glucose 90 POC Capillary Glucose Hemoglobin A1c 6.4 H Lactic Acid Calcium 7.9 L Magnesium Total Bilirubin AST ALT Alkaline Phosphatase Total Protein Albumin TSH (Reflex) Urine Color Urine Appearance Urine pH Ur Specific [place] Urine Protein Urine Glucose (UA) Urine Ketones Ur Blood (Man) Urine Nitrate Urine Bilirubin Urine Urobilinogen Leukocyte Esterase Rfl Urine RBC Urine WBC Ur Squamous Epith Cells Urine Bacteria Urine Casts Influenza A (RT-PCR) Influenza B (RT-PCR) RSV (RT-PCR) SARS-CoV-2 RNA (RT-PCR) Quality VTE Prophylaxis VTE prophylaxis: mechanical ordered -Patient's previous records reviewed on admission -ER notes reviewed in detail on admission -discussed all findings and current treatment plan with patient/Family/POA -Consultations reviewed for recommendations -Patient's disposition for safe discharge discussed with watch case polisher Dictation performed by [employer] direct speech recognition software, therefore software solutions architect variants and typographical errors may occur. Hospitalist MIPS Advance Care Plan I have confirmed that the patient's Advanced Care Plan is present, code status is documented, or surrogate decision maker is listed in patient medical record.: Yes Medication Reconciliation I have utilized all available resources to obtain, update and review the patients current medications (includes all prescriptions, OTC, herbals, cannabis, and nutritional supplements).: Yes The patient is not eligible for med reconciliation; the patient is in a emergent medical situation where delaying treatment would jeopardize the patients health.: No
[2024-07-13 08:40] LABS: Glucose Point of Care 92 mg/dl (65-105)
[2024-07-13] MEDS: SODIUM CHLORIDE 0.9% IV 250 ML 30 ML IV CONT (10:20)
[2024-07-13] MEDS: PANTOPRAZOLE 40 MG TABLET PO ×2 (10:42→20:42)
[2024-07-13 11:58] LABS: Glucose Point of Care 131 mg/dl (65-105)
[2024-07-13 15:37] LABS: Hematocrit 25.9 % (37.0-47.0); Hemoglobin 8.2 g/dL (12.0-15.0)
[2024-07-13 16:47] LABS: Glucose Point of Care 170 mg/dl (65-105)
[2024-07-13] MEDS: ATORVASTATIN 40 MG TABLET PO (20:42)
[2024-07-13] MEDS: INSULIN GLARGINE (*BKC) 100 UNITS/ML 18 UNITS SUB-Q (20:47)
[2024-07-13 21:13] LABS: Glucose Point of Care 228 mg/dl (65-105)
[2024-07-14] MEDS: VERAPAMIL HCL 40 MG TABLET PO ×3 (05:41→20:20)
[2024-07-14 06:00] VITALS: BP 152/56; PULSE 74; RESP 18; TEMP 36.2; O2SAT 97
[2024-07-14 08:05] LABS: Glucose Point of Care 122 mg/dl (65-105)
[2024-07-14 08:38] VITALS: PULSE 81
[2024-07-14] MEDS: PANTOPRAZOLE 40 MG TABLET PO ×2 (08:38→20:20)
[2024-07-14] MEDS: hydrALAZINE HCL 25 MG TABLET PO ×3 (08:38→16:46)
[2024-07-14] MEDS: FERROUS SULFATE 325 MG TABLET DR PO ×2 (08:38→16:46)
[2024-07-14] MEDS: METOPROLOL TARTRATE 25 MG TABLET PO ×2 (08:38→20:21)
[2024-07-14] MEDS: SENNA/DOCUSATE SODIUM TABLET 1 TAB PO (08:38)
[2024-07-14 09:15] VITALS: O2SAT 97
[2024-07-14 11:22] LABS: Glucose Point of Care 186 mg/dl (65-105)
--- NOTE | 2024-07-14 12:08 | P.PNIM_ITS ---
Progress Note: A&P Assessment and Plan (1) Sepsis: Qualifiers: Acute renal failure type: unspecified Sepsis acute organ dysfunction status: with acute organ dysfunction Sepsis type: sepsis due to unspecified or ganism Severe sepsis acute organ dysfunction type: acute renal failure Severe sepsis shock status: without septic shock Qualified Code(s): A41.9 - Sepsis, unspecified organism; R65.20 - Severe sepsis without septic shock; N17.9 - Acute kidney failure, unspecified Code(s): A41.9 - Sepsis, unspecified organism Status: Acute Assessment and Plan: patient met criteria for sepsis without septic shock secondary to urinary tract infection elevated WBC, tachycardia, EDDI, altered mental status * lactic acid pending 1. * responded to IV fluids * started on ceftriaxone * blood cultures NGTD (2) Acute UTI: Code(s): N39.0 - Urinary tract infection, site not specified Status: Acute Assessment and Plan: * UA: 1+ protein, trace ketones, 1+ leuks, 6-10 WBC, 4+ bacteria, no epithelial cells. * UC pending * started on Ceftriaxone pending UC 07/14 * Culture With the Ecoli pending sensitivities (3) Acute kidney injury superimposed on CKD: Code(s): N17.9 - Acute kidney failure, unspecified; N18.9 - Chronic kidney disease, unspecified Status: Acute Assessment and Plan: creatinine 2.54 and GFR 18, previously 1.4 and GFR 35 on 04/01/2024 * suspect injury is multifactorial including dehydration and UTI, will trial rehydration/abx for the next 24 hours. HX of HTN, diabetes * responding to IV hydration. * Avoid nephrotoxic drugs. * Monitor antihypertensive drug therapy. * Avoid NSAIDs. * Routine CMP monitoring GFR. * Monitor electrolytes especially potassium. * Antibiotic doses depending on creatinine clearance. (4) Altered mental status: Qualifiers: Altered mental status type: disorientation Qualified Code(s): R41.0 - Disorientation, unspecified Code(s): R41.82 - Altered mental status, unspecified Status: Acute Assessment and Plan: Metabolic encephalopathy secondary to UTI v new CVA. * head CT: 1. 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 2. Moderate nonspecific cerebral white matter disease, which likely represents chronic small vessel ischemic disease. * MR brain w/o con, will defer neurology consultation until resulted to assess if appropriate * CXR: No acute cardiopulmonary disease * viral PCR negative * UTI * neuro checks q.4 * hold gabapentin and tramadol * PT/OT pending (5) Iron deficiency anemia: Qualifiers: Iron deficiency anemia type: unspecified iron deficiency Qualified Code(s): D50.9 - Iron deficiency anemia, unspecified Code(s): D50.9 - Iron deficiency anemia, unspecified Status: Chronic Assessment and Plan: * Hgb 8.0, previously 0.1 on 04/01/2024, at baseline. * continue home medication: Ferrous sulfate 325 b.i.d. 07/13 * Hgb 6.2 GIB vs dilution after IV fluid resuscitation * transfuse 1 unit PRBC * F/U hgb q6 hr * PPI BID * occult stool ordered * Will tranfuse PRBC if Hgb <7.0 * hemodynamically stable continue to monitor BP (6) Insulin dependent type 2 diabetes mellitus: Code(s): E11.9 - Type 2 diabetes mellitus without complications; Z79.4 - intermediate (current) use of insulin Status: Chronic Assessment and Plan: * Accu-Cheks a.c. HS * sliding scale insulin * hold oral diabetic medications * resume patient's home long-acting * Hemoglobin A1c 6.8 * Diabetic diet * Optimize Scott inhibitors and statins. * Watch for hypoglycemia/hypoglycemic protocol ordered (7) Hypertension: Qualifiers: Hypertension type: unspecified Qualified Code(s): I10 - Essential (primary) hypertension Code(s): I10 - Essential (primary) hypertension Status: Chronic Assessment and Plan: * chronic, currently 158/49 * continue home medications: Hydralazine 25 mg t.i.d., metoprolol 25 mg b.i.d., verapamil 40 mg q.8 * BP per unit protocol (8) Obstructive sleep apnea: Code(s): G47.33 - Obstructive sleep apnea (adult) (pediatric) Status: Chronic Assessment and Plan: * Did not tolerate ASV * Oxygen PRN Plan Code status: DNR DVT prophylaxis: SCD Stress ulcer prophylaxis: Protonix 40 BID PT/OT notes: Pending Disposition: Patient was admitted to the medical unit for further evaluation and treatment of sepsis without septic shock secondary to UTI and possible CVA. Patient with low hemoglobin is being transfused 1 unit PRBCs currently no evidence of GIB occult stool pending. PT/ OT has been ordered for further recommendations patient will likely return back to group home facility when medically stable. Time Spent With Patient Time with patient: 15 - 25 minutes Subjective Date/time seen: 07/14/24 12:08 Interval history: patient is an 88-year-old female who was admitted to the medical unit for further evaluation and treatment of sepsis secondary to UTI without septic shock and altered mental status. Patient was started on IV antibiotic therapy pending culture and MR brain pending to rule out CVA. 07/14/24: Patient still lethargic but did answer questions correctly when asked. Patient close to baseline is a lorie lift to wheelchair. OT still pending. Patient denied any complaints at time of assessment. Hgb stable at 8.8. Review of Systems Review of Systems: All systems reviewed & are unremarkable except as noted in HPI and below Exam Narrative: * GENERAL: Alert and oriented x 2 lethargic. No acute distress. * EYES: EOMI. No scleral icterus. PERRLA. * HEENT: Moist mucous membranes. * LUNGS: Clear to auscultation bilaterally. No accessory muscle use. * CARDIOVASCULAR: Regular rate and rhythm. * ABDOMEN: Soft, non tenderness and non-distended. No palpable masses. * EXTREMITIES: 1+ edema. Non-tender * SKIN:Pressure wound to left buttockNo rashes or lesions. Skin warm, dry. * NEUROLOGIC: No focal neurological deficits. CN II-XII grossly intact. Strength equal bilateral upper and lower extremities, Generalized weakness no noted deficits * PSYCHIATRIC: Unable to assess lethargic Objective Data Vital Signs Vital Signs: Vital Signs - 24 hr 07/13/24 12:35 07/13/24 13:35 07/13/24 14:00 Temperature 97 F L 97.7 F 97.4 F L Pulse Rate 69 68 63 Respiratory Rate 16 18 22 H Blood Pressure 126/46 L 123/45 L 144/51 H Pulse Oximetry 97 96 97 Oxygen Delivery 07/13/24 14:03 07/13/24 20:00 07/13/24 20:42 Temperature 97.4 F L Pulse Rate 63 72 Respiratory Rate 22 H Blood Pressure 144/51 H Pulse Oximetry 97 Oxygen Delivery Room Air 07/13/24 21:53 07/14/24 06:00 07/14/24 08:00 Temperature 97.9 F 97.2 F L Pulse Rate 76 74 Respiratory Rate 20 18 Blood Pressure 134/44 L 152/56 H Pulse Oximetry 100 97 Oxygen Delivery Room Air 07/14/24 08:38 07/14/24 09:15 Temperature Pulse Rate 81 Respiratory Rate Blood Pressure Pulse Oximetry 97 Oxygen Delivery Room Air Intake/Output Intake/Output: Intake & Output 07/11/24 07/12/24 07/13/24 07/14/24 23:59 23:59 23:59 23:59 Intake Total 1050 2406 504 Output Total 100 775 450 Balance 950 1631 54 Meds/Results Medications: Active Medications Generic Name Dose Route Start Last Admin Trade Name Freq PRN Reason Stop Dose Admin Acetaminophen 650 mg 07/12/24 14:42 07/13/24 08:22 Acetaminophen 325 Mg Tablet PO 650 mg Q4H PRN Administration Mild Pain (1-3) or Fever Albuterol 2 puff 07/12/24 17:35 Albuterol Sulfate (*Sp) Aerosol 1 Puff INHALATION QID PRN SOB or wheezing Albuterol/Ipratropium 3 ml 07/12/24 17:35 Ipratropium 0.5 Mg/Albuterol Sulfate 2.5 Mg Ampul.Neb 3 Ml INHALATION QID PRN Shortness Of Breath Atorvastatin Calcium 40 mg 07/12/24 21:00 07/13/24 20:42 Atorvastatin 40 Mg Tablet PO 40 mg HS EPIFANIO Administration Dextrose 12.5 gm 07/12/24 14:45 Dextrose 50% 25 Gm/50 Ml Syringe IV PUSH PRN PRN Hypoglycemia Protocol Ferrous Sulfate 325 mg 07/13/24 09:00 07/14/24 08:38 Ferrous Sulfate [address] PO 325 mg BID EPIFANIO Administration Gentamicin Sulfate 1 applic 07/12/24 17:35 Gentamicin Sulfate 0.1% Cr 15 Gm Tube TOPICAL PRN PRN Wound Care Glucagon 1 mg 07/12/24 14:45 Glucagon For Inj 1 Mg Vial IM PRN PRN Hypoglycemia Protocol Glucose 15 gm 07/12/24 14:45 Glucose Oral Gel 15 Gm Of Glucse In 37.5 Gm Tube PO PRN PRN Hypoglycemia Protocol Hydralazine HCl 25 mg 07/12/24 17:45 07/14/24 08:38 Hydralazine Hcl 25 Mg Tablet PO 25 mg TID EPIFANIO Administration Ceftriaxone Sodium 1 gm in 50 mls @ 100 mls/hr 07/13/24 14:00 07/13/24 14:08 Rocephin 1 Gm/Ns 50 Ml IVPB 100 mls/hr Q24H EPIFANIO Administration Dextrose 1,000 mls @ 100 mls/hr 07/12/24 14:45 Dextrose 5% 1,000 Ml IVPB PRN PRN Hypoglycemia Protocol Insulin Aspart 2 - 5 units 07/12/24 17:00 07/14/24 08:43 Insulin Aspart (*Bkc) 100 Units/Ml SUB-Q Not Given TIDWM EPIFANIO Protocol Insulin Glargine 18 units 07/12/24 21:00 07/13/24 20:47 Insulin Glargine (*Bkc) 100 Units/Ml SUB-Q 18 units HS EPIFANIO Administration Metoprolol Tartrate 25 mg 07/12/24 21:00 07/14/24 08:38 Metoprolol Tartrate 25 Mg Tablet PO 25 mg Q12HR EPIFANIO Administration Pantoprazole Sodium 40 mg 07/13/24 09:00 07/14/24 08:38 Pantoprazole 40 Mg Tablet PO 40 mg Q12HR EPIFANIO Administration Senna/Docusate Sodium 1 tab 07/13/24 09:00 07/14/24 08:38 Senna/Docusate Sodium Tablet PO 1 tab DAILY EPIFANIO Administration Verapamil HCl 40 mg 07/12/24 22:00 07/14/24 05:41 Verapamil Hcl 40 Mg Tablet PO 40 mg Q8H EPIFANIO Administration Radiology Results: ITS Impressions Head CT 07/12/24 14:08 IMPRESSION: 1. Old infarcts in the brain. 2. Moderate nonspecific cerebral white matter disease, which likely represents chronic small vessel ischemic disease. Chest X-Ray 07/12/24 14:18 Impression: 1: No acute cardiopulmonary disease. Labs Labs: Laboratory Results - last 24 hr 07/13/24 07/13/24 07/13/24 07:37 15:07 16:43 Hgb 8.2 L Hct 25.9 L POC Capillary Glucose 170 H Crossmatch See Detail 07/13/24 07/14/24 07/14/24 20:43 07:56 11:14 Hgb Hct POC Capillary Glucose 228 H 122 H 186 H Crossmatch Quality VTE Prophylaxis VTE prophylaxis: mechanical ordered -Patient's previous records reviewed on admission -ER notes reviewed in detail on admission -discussed all findings and current treatment plan with patient/Family/POA -Consultations reviewed for recommendations -Patient's disposition for safe discharge discussed with caseworker protective services Dictation performed by SAT[employer] direct speech recognition software, therefore process assistant variants and typographical errors may occur. Hospitalist MIPS Advance Care Plan I have confirmed that the patient's Advanced Care Plan is present, code status is documented, or surrogate decision maker is listed in patient medical record.: Yes Medication Reconciliation I have utilized all available resources to obtain, update and review the patients current medications (includes all prescriptions, OTC, herbals, cannabi s, and nutritional supplements).: Yes The patient is not eligible for med reconciliation; the patient is in a emergent medical situation where delaying treatment would jeopardize the patients health.: No
[2024-07-14 12:52] LABS: Hematocrit 28.2 % (37.0-47.0); Hemoglobin 8.8 g/dL (12.0-15.0); Mean Corpuscular HGB Conc 31.2 g/dl (32-36); Mean Corpuscular Hemoglobin 26.9 pg (26-34); Mean Corpuscular Volume 86.2 fl (80-100); Platelet Count Result 303 k/mm3 (150-375); Red Blood Count 3.27 M/mm3 (4.2-5.4); Red Cell Distribution Width 21.4 % (11.5-14.5)
[2024-07-14 12:55] LABS: Alanine Aminotransferase 37 U/L (6-35); Albumin Level 2.8 g/dL (3.5-5.1); Alkaline Phosphatase 102 U/L (38-126); Anion Gap 11 mmol/L (4-12); Aspartate Amino Transferase 42 U/L (14-36); Bilirubin,Total 0.6 mg/dL (0.2-1.3); Blood Urea Nitrogen 35 mg/dL (7-17); Calcium 8.5 mg/dL (8.4-10.2); Carbon Dioxide 20 mmol/L (22-30); Chloride 105 mmol/L (98-107); Estimated CRCL calculation 17 ml/min; Estimated Glomerular Filt Rate 22; Glucose 141 mg/dL (65-110); Potassium 3.9 mmol/L (3.4-5.0); Sodium 136 mmol/L (137-145)
[2024-07-14 14:00] VITALS: BP 130/46; PULSE 82; RESP 22; TEMP 37.2; O2SAT 98
--- NOTE | 2024-07-14 14:26 | PCPTNOTE ---
pt is dependent baseline, pt states she uses lorie lift to W/C for mobility, DC'ing PT orders
--- NOTE | 2024-07-14 15:07 | PCOTNOTE ---
Pt is a [facility]. At her baseline she is lorie'd to a w/c and has assist with ADLs. No acute OT needs at this time due to baseline functional status.
[2024-07-14 16:25] LABS: Glucose Point of Care 165 mg/dl (65-105)
[2024-07-14] MEDS: ATORVASTATIN 40 MG TABLET PO (20:21)
[2024-07-14] MEDS: INSULIN GLARGINE (*BKC) 100 UNITS/ML 18 UNITS SUB-Q (20:21)
[2024-07-14 20:25] LABS: Glucose Point of Care 185 mg/dl (65-105)
[2024-07-14 21:16] VITALS: BP 126/50; PULSE 64; RESP 18; TEMP 36.6; O2SAT 97
[2024-07-15] MEDS: VERAPAMIL HCL 40 MG TABLET PO ×3 (05:32→21:05)
[2024-07-15 05:36] VITALS: BP 168/59; PULSE 75; RESP 18; TEMP 36.7; O2SAT 99
[2024-07-15 07:55] LABS: Glucose Point of Care 91 mg/dl (65-105)
[2024-07-15 09:14] VITALS: PULSE 80
[2024-07-15] MEDS: FERROUS SULFATE 325 MG TABLET DR PO ×2 (09:14→17:56)
[2024-07-15] MEDS: PANTOPRAZOLE 40 MG TABLET PO ×2 (09:14→21:04)
[2024-07-15] MEDS: levoFLOXacin 750 MG TABLET PO (09:14)
[2024-07-15] MEDS: METOPROLOL TARTRATE 25 MG TABLET PO ×2 (09:14→21:03)
[2024-07-15] MEDS: SENNA/DOCUSATE SODIUM TABLET 1 TAB PO (09:15)
[2024-07-15] MEDS: hydrALAZINE HCL 25 MG TABLET PO ×3 (09:15→17:56)
[2024-07-15 11:58] LABS: Glucose Point of Care 257 mg/dl (65-105)
[2024-07-15] MEDS: INSULIN ASPART (*BKC) 100 UNITS/ML SUB-Q (13:09)
[2024-07-15 13:56] LABS: Hematocrit 27.2 % (37.0-47.0); Hemoglobin 8.3 g/dL (12.0-15.0); Mean Corpuscular HGB Conc 30.5 g/dl (32-36); Mean Corpuscular Hemoglobin 26.9 pg (26-34); Mean Platelet Volume 11.5 fl (7.4-10.4); Platelet Count Result 288 k/mm3 (150-375); Red Blood Count 3.09 M/mm3 (4.2-5.4)
[2024-07-15 14:08] LABS: Alanine Aminotransferase 27 U/L (6-35); Albumin Level 2.3 g/dL (3.5-5.1); Alkaline Phosphatase 85 U/L (38-126); Anion Gap 8 mmol/L (4-12); Aspartate Amino Transferase 29 U/L (14-36); Bilirubin,Total 0.4 mg/dL (0.2-1.3); Blood Urea Nitrogen 32 mg/dL (7-17); Calcium 7.9 mg/dL (8.4-10.2); Carbon Dioxide 20 mmol/L (22-30); Chloride 105 mmol/L (98-107); Estimated CRCL calculation 19 ml/min; Estimated Glomerular Filt Rate 24; Glucose 252 mg/dL (65-110); Potassium 3.7 mmol/L (3.4-5.0); Sodium 133 mmol/L (137-145)
[2024-07-15 15:21] VITALS: BP 131/55; PULSE 67; RESP 18; TEMP 36.2; O2SAT 97
--- NOTE | 2024-07-15 15:55 | P.PNIM_ITS ---
Progress Note: A&P Assessment and Plan (1) Sepsis: Qualifiers: Sepsis type: sepsis due to unspecified organism Sepsis acute organ dysfunction status: with acute organ dysfunction Severe sepsis acute organ dysfunction type: acute renal failure Acute renal failure type: unspecified Severe sepsis shock status: without septic shock Qualified Code(s): A41.9 - Sepsis, unspecified organism; R65.20 - Severe sepsis without septic shock; N17.9 - Acute kidney failure, unspecified Code(s): A41.9 - Sepsis, unspecified organism Status: Acute Assessment and Plan: patient met criteria for sepsis without septic shock secondary to urinary tract infection elevated WBC, tachycardia, EDDI, altered mental status * lactic acid pending . * responded to IV fluids * started on ceftriaxone * blood cultures NGTD (2) Acute UTI: Code(s): N39.0 - Urinary tract infection, site not specified Status: Acute Assessment and Plan: * UA: 1+ protein, trace ketones, 1+ leuks, 6-10 WBC, 4+ bacteria, no epithelial cells. * UC pending * started on Ceftriaxone pending UC 07/14 * Culture With the Ecoli pending sensitivities 07/15: * Crane sens except Augmentin * Levofloxacin PO last dose 07/16/24 (3) Acute kidney injury superimposed on CKD: Code(s): N17.9 - Acute kidney failure, unspecified; N18.9 - Chronic kidney disease, unspecified Status: Acute Assessment and Plan: creatinine 2.54 and GFR 18, previously 1.4 and GFR 35 on 04/01/2024 * suspect injury is multifactorial including dehydration and UTI, will trial rehydration/abx for the next 24 hours. HX of HTN, diabetes * responding to IV hydration. * Avoid nephrotoxic drugs. * Monitor antihypertensive drug therapy. * Avoid NSAIDs. * Routine CMP monitoring GFR. * Monitor electrolytes especially potassium. * Antibiotic doses depending on creatinine clearance. (4) Altered mental status: Qualifiers: Altered mental status type: disorientation Qualified Code(s): R41.0 - Disorientation, unspecified Code(s): R41.82 - Altered mental status, unspecified Status: Acute Assessment and Plan: Metabolic encephalopathy secondary to UTI v new CVA. * head CT: 1. 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 2. Moderate nonspecific cerebral white matter disease, which likely represents chronic small vessel ischemic disease. * MR brain w/o con, will defer neurology consultation until resulted to assess if appropriate * CXR: No acute cardiopulmonary disease * viral PCR negative * UTI * neuro checks q.4 * hold gabapentin and tramadol * PT/OT pending (5) Iron deficiency anemia: Qualifiers: Iron deficiency anemia type: unspecified iron deficiency Qualified Code(s): D50.9 - Iron deficiency anemia, unspecified Code(s): D50.9 - Iron deficiency anemia, unspecified Status: Chronic Assessment and Plan: * Hgb 8.0, previously 0.1 on 04/01/2024, at baseline. * continue home medication: Ferrous sulfate 325 b.i.d. 07/13 * Hgb 6.2 GIB vs dilution after IV fluid resuscitation * transfuse 1 unit PRBC * F/U hgb q6 hr * PPI BID * occult stool ordered * Will tranfuse PRBC if Hgb <7.0 * hemodynamically stable continue to monitor BP (6) Insulin dependent type 2 diabetes mellitus: Code(s): E11.9 - Type 2 diabetes mellitus without complications; Z79.4 - heavy forger helper (current) use of insulin Status: Chronic Assessment and Plan: * Accu-Cheks a.c. HS * sliding scale insulin * hold oral diabetic medications * resume patient's home long-acting * Hemoglobin A1c 6.8 * Diabetic diet * Optimize Scott inhibitors and statins. * Watch for hypoglycemia/hypoglycemic protocol ordered (7) Hypertension: Qualifiers: Hypertension type: unspecified Qualified Code(s): I10 - Essential (primary) hypertension Code(s): I10 - Essential (primary) hypertension Status: Chronic Assessment and Plan: * chronic, currently 158/49 * continue home medications: Hydralazine 25 mg t.i.d., metoprolol 25 mg b.i.d., verapamil 40 mg q.8 * BP per unit protocol (8) Obstructive sleep apnea: Code(s): G47.33 - Obstructive sleep apnea (adult) (pediatric) Status: Chronic Assessment and Plan: * Did not tolerate ASV * Oxygen PRN Plan Code status: DNR DVT prophylaxis: SCD Stress ulcer prophylaxis: Protonix 40 BID PT/OT notes: Pending Disposition: Patient was admitted to the medical unit for further evaluation and treatment of sepsis without septic shock secondary to UTI and possible CVA. Patient with overall improvement MRI was pending unsure if we can perform due to loo recorder can likely return to SNF 07/16/24 if no events overnight. Time Spent With Patient Time with patient: 15 - 25 minutes Subjective Date/time seen: 07/15/24 15:55 Interval history: patient is an 88-year-old female who was admitted to the medical unit for further evaluation and treatment of sepsis secondary to UTI without septic shock and altered mental status. Patient was started on IV antibiotic therapy pending culture and MR brain pending to rule out CVA. 07/15/24: Patient more alert answered questions and knew where she was. Labs improved, was still waiting on loo recorder records for MRI at this time patient appears close to baseline will speak to daughter if unable to get MRI understanding it would not change or course of treatment. UA showed ECOLI last ABX dose tomorrow can likely discharge back to [facility] tomorrow pending if MRI can be completed. Review of Systems Review of Systems: All systems reviewed & are unremarkable except as noted in HPI and below Exam Narrative: * GENERAL: Alert and oriented x 2 . No acute distress. * EYES: EOMI. No scleral icterus. PERRLA. * HEENT: Moist mucous membranes. * LUNGS: Clear to auscultation bilaterally. No accessory muscle use. * CARDIOVASCULAR: Regular rate and rhythm. * ABDOMEN: Soft, non tenderness and non-distended. No palpable masses. * EXTREMITIES: 1+ edema. Non-tender * SKIN:Pressure wound to left buttockNo rashes or lesions. Skin warm, dry. * NEUROLOGIC: No focal neurological deficits. CN II-XII grossly intact. Strength equal bilateral upper and lower extremities, Generalized weakness no noted deficits * PSYCHIATRIC: Unable to assess lethargic Objective Data Vital Signs Vital Signs: Vital Signs - 24 hr 07/14/24 20:00 07/14/24 21:16 07/15/24 05:36 Temperature 97.9 F 98.0 F Pulse Rate 64 75 Respiratory Rate 18 18 Blood Pressure 126/50 L 168/59 H Pulse Oximetry 97 99 Oxygen Delivery Room Air 07/15/24 09:14 07/15/24 09:15 07/15/24 15:21 Temperature 97.2 F L Pulse Rate 80 67 Respiratory Rate 18 Blood Pressure 131/55 L Pulse Oximetry 97 Oxygen Delivery Room Air Intake/Output Intake/Output: Intake & Output 07/12/24 07/13/24 07/14/24 07/15/24 23:59 23:59 23:59 23:59 Intake Total 1050 2456 1364 460 Output Total 100 775 950 Balance 950 1681 414 460 Meds/Results Medications: Active Medications Generic Name Dose Route Start Last Admin Trade Name Freq PRN Reason Stop Dose Admin Acetaminophen 650 mg 07/12/24 14:42 07/13/24 08:22 Acetaminophen 325 Mg Tablet PO 650 mg Q4H PRN Administration Mild Pain (1-3) or Fever Albuterol 2 puff 07/12/24 17:35 Albuterol Sulfate (*Sp) Aerosol 1 Puff INHALATION QID PRN SOB or wheezing Albuterol/Ipratropium 3 ml 07/12/24 17:35 Ipratropium 0.5 Mg/Albuterol Sulfate 2.5 Mg Ampul.Neb 3 Ml INHALATION QID PRN Shortness Of Breath Atorvastatin Calcium 40 mg 07/12/24 21:00 07/14/24 20:21 Atorvastatin 40 Mg Tablet PO 40 mg HS EPIFANIO Administration Dextrose 12.5 gm 07/12/24 14:45 Dextrose 50% 25 Gm/50 Ml Syringe IV PUSH PRN PRN Hypoglycemia Protocol Ferrous Sulfate 325 mg 07/13/24 09:00 07/15/24 09:14 Ferrous Sulfate [address] PO 325 mg BID EPIFANIO Administration Gentamicin Sulfate 1 applic 07/12/24 17:35 Gentamicin Sulfate 0.1% Cr 15 Gm Tube TOPICAL PRN PRN Wound Care Glucagon 1 mg 07/12/24 14:45 Glucagon For Inj 1 Mg Vial IM PRN PRN Hypoglycemia Protocol Glucose 15 gm 07/12/24 14:45 Glucose Oral Gel 15 Gm Of Glucse In 37.5 Gm Tube PO PRN PRN Hypoglycemia Protocol Hydralazine HCl 25 mg 07/12/24 17:45 07/15/24 13:08 Hydralazine Hcl 25 Mg Tablet PO 25 mg TID EPIFANIO Administration Dextrose 1,000 mls @ 100 mls/hr 07/12/24 14:45 Dextrose 5% 1,000 Ml IVPB PRN PRN Hypoglycemia Protocol Insulin Aspart 2 - 5 units 07/12/24 17:00 07/15/24 13:09 Insulin Aspart (*Bkc) 100 Units/Ml SUB-Q 3 units TIDWM EPIFANIO Administration Protocol Insulin Glargine 18 units 07/12/24 21:00 07/14/24 20:21 Insulin Glargine (*Bkc) 100 Units/Ml SUB-Q 18 units HS EPIFANIO Administration Levofloxacin 500 mg 07/17/24 09:00 Levofloxacin 500 Mg Tablet PO 07/17/24 09:01 ONCE ONE Metoprolol Tartrate 25 mg 07/12/24 21:00 07/15/24 09:14 Metoprolol Tartrate 25 Mg Tablet PO 25 mg Q12HR EPIFANIO Administration Pantoprazole Sodium 40 mg 07/13/24 09:00 07/15/24 09:14 Pantoprazole 40 Mg Tablet PO 40 mg Q12HR EPIFANIO Administration Senna/Docusate Sodium 1 tab 07/13/24 09:00 07/15/24 09:15 Senna/Docusate Sodium Tablet PO 1 tab DAILY EPIFANIO Administration Verapamil HCl 40 mg 07/12/24 22:00 07/15/24 13:10 Verapamil Hcl 40 Mg Tablet PO 40 mg Q8H EPIFANIO Administration Radiology Results: ITS Impressions Head CT 07/12/24 14:08 IMPRESSION: 1. Old infarcts in the brain. 2. Moderate nonspecific cerebral white matter disease, which likely represents chronic small vessel ischemic disease. Chest X-Ray 07/12/24 14:18 Impression: 1: No acute cardiopulmonary disease. Labs Labs: Laboratory Results - last 24 hr 07/14/24 07/14/24 07/15/24 16:16 20:11 07:49 WBC RBC Hgb Hct MCV MCH MCHC RDW Plt Count MPV Sodium Potassium Chloride Carbon Dioxide Anion Gap BUN Creatinine Estim Creat Clear Calc Estimated GFR Glucose POC Capillary Glucose 165 H 185 H 91 Calcium Total Bilirubin AST ALT Alkaline Phosphatase Total Protein Albumin 07/15/24 07/15/24 11:41 13:48 WBC 7.0 RBC 3.09 L Hgb 8.3 L Hct 27.2 L MCV 88.0 MCH 26.9 MCHC 30.5 L RDW 21.0 H Plt Count 288 MPV 11.5 H Sodium 133 L Potassium 3.7 Chloride 105 Carbon Dioxide 20 L Anion Gap 8 BUN 32 H Creatinine 1.94 H Estim Creat Clear Calc 19 Estimated GFR 24 L Glucose 252 H POC Capillary Glucose 257 H Calcium 7.9 L Total Bilirubin 0.4 AST 29 ALT 27 Alkaline Phosphatase 85 Total Protein 6.0 L Albumin 2.3 L Quality VTE Prophylaxis VTE prophylaxis: mechanical ordered -Patient's previous records reviewed on admission -ER notes reviewed in detail on admission -discussed all findings and current treatment plan with patient/Family/POA -Consultations reviewed for recommendations -Patient's disposition for safe discharge discussed with case operator Dictation performed by [employer] direct speech recognition software, therefore art history professor variants and typographical errors may occur. Hospitalist MIPS Advance Care Plan I have confirmed that the patient's Advanced Care Plan is present, code status is documented, or surrogate decision maker is listed in patient medical record.: Yes Medication Reconciliation I have utilized all available resources to obtain, update and review the patients current medications (includes all prescriptions, OTC, herbals, cannabis, and nutritional supplements).: Yes The patient is not eligible for med reconciliation; the patient is in a emergent medical situation where delaying treatment would jeopardize the patients health.: No
[2024-07-15 16:55] LABS: Glucose Point of Care 151 mg/dl (65-105)
--- NOTE | 2024-07-15 18:52 | PC.NURSE ---
On 07/15/24, the SECURITY OPERATIONS ENGINEER, Tasneem provided care and completed [employer] documentation on this patient. I have reviewed the SECURITY OPERATIONS ENGINEER's documentation and agree with the findings.
[2024-07-15 20:24] VITALS: BP 169/65; PULSE 77; RESP 14; TEMP 36.4; O2SAT 98
[2024-07-15 21:03] VITALS: PULSE 80
[2024-07-15] MEDS: ATORVASTATIN 40 MG TABLET PO (21:04)
[2024-07-15] MEDS: INSULIN GLARGINE (*BKC) 100 UNITS/ML 18 UNITS SUB-Q (21:05)
[2024-07-15 21:35] LABS: Glucose Point of Care 163 mg/dl (65-105)
[2024-07-16 05:23] VITALS: BP 155/52; PULSE 68; RESP 16; TEMP 36.4; O2SAT 95
[2024-07-16] MEDS: VERAPAMIL HCL 40 MG TABLET PO ×2 (05:39→13:00)
[2024-07-16 08:14] LABS: Glucose Point of Care 105 mg/dl (65-105)
[2024-07-16 08:47] VITALS: PULSE 68
[2024-07-16] MEDS: FERROUS SULFATE 325 MG TABLET DR PO ×2 (08:47→17:11)
[2024-07-16] MEDS: SENNA/DOCUSATE SODIUM TABLET 1 TAB PO (08:47)
[2024-07-16] MEDS: METOPROLOL TARTRATE 25 MG TABLET PO (08:47)
[2024-07-16] MEDS: PANTOPRAZOLE 40 MG TABLET PO (08:47)
[2024-07-16] MEDS: hydrALAZINE HCL 25 MG TABLET PO ×3 (08:48→17:11)
--- NOTE | 2024-07-16 11:56 | PC.NURSE ---
Patient resting during morning assessment. She calm and cooperative. No complaints at this time. No records from [facility] as of this time MRI aware.
[2024-07-16 12:22] LABS: Glucose Point of Care 146 mg/dl (65-105)
--- NOTE | 2024-07-16 12:29 | PC.NURSE ---
Patient resting in bed during morning assessment. No complaints at this time.
--- NOTE | 2024-07-16 13:26 | P.DS_ITS ---
DS: Admitting Diagnosis Discharge Date 07/16/2024 Admitting Diagnosis Sepsis/AMS/UTI DS: Discharge Diagnosis Discharge Diagnosis (1) Sepsis: Qualifiers: Acute renal failure type: unspecified Sepsis acute organ dysfunction status: with acute organ dysfunction Sepsis type: sepsis due to unspecified organism Severe sepsis acute organ dysfunction type: acute renal failure Severe sepsis shock status: without septic shock Qualified Code(s): A41.9 - Sepsis, unspecified organism; R65.20 - Severe sepsis without septic shock; N17.9 - Acute kidney failure, unspecified Code(s): A41.9 - Sepsis, unspecified organism Status: Acute Assessment and Plan: RESOLVED (2) Acute UTI: Code(s): N39.0 - Urinary tract infection, site not specified Status: Acute Assessment and Plan: * Complete ABX (3) Acute kidney injury superimposed on CKD: Code(s): N17.9 - Acute kidney failure, unspecified; N18.9 - Chronic kidney disease, unspecified Status: Acute Assessment and Plan: At baseline (4) Altered mental status: Qualifiers: Altered mental status type: disorientation Qualified Code(s): R41.0 - Disorientation, unspecified Code(s): R41.82 - Altered mental status, unspecified Status: Acute Assessment and Plan: At Baseline (5) Iron deficiency anemia: Qualifiers: Iron deficiency anemia type: unspecified iron deficiency Qualified Code(s): D50.9 - Iron deficiency anemia, unspecified Code(s): D50.9 - Iron deficiency anemia, unspecified Status: Chronic Assessment and Plan: Stable continue ferrous sulfate (6) Insulin dependent type 2 diabetes mellitus: Code(s): E11.9 - Type 2 diabetes mellitus without complications; Z79.4 - continuous churn buttermaker (current) use of insulin Status: Chronic Assessment and Plan: * Hemoglobin A1c 6.8 * Diabetic diet * Optimize Scott inhibitors and statins. * Watch for hypoglycemia/hypoglycemic protocol ordered (7) Hypertension: Qualifiers: Hypertension type: unspecified Qualified Code(s): I10 - Essential (primary) hypertension Code(s): I10 - Essential (primary) hypertension Status: Chronic Assessment and Plan: * chronic, currently 158/49 * continue home medications: Hydralazine 25 mg t.i.d., metoprolol 25 mg b.i.d., verapamil 40 mg q.8 * BP per unit protocol (8) Obstructive sleep apnea: Code(s): G47.33 - Obstructive sleep apnea (adult) (pediatric) Status: Chronic Assessment and Plan: * Did not tolerate ASV * Oxygen PRN Plan Disposition: Discharged to SNF DS: Summary Hospital Course Reason for hospitalization: AMS/UTI/Sepsis Hospital Course: 88 y/o F presents here with AMS with PMH of chronic kidney disease, diabetes, DVT, hypertension, peripheral artery disease, DAVID, iron deficiency anemia, COPD, sleep apnea, and osteopenia. The patient presents here with possible AMS from [facility] via EMS. HPI obtained through provider report, EMS report, chart review, and patient's POA. Staff reported to EMS that they noted the patient was slumped over and appeared altered. Per patient's family member in the ED, she is frequently slumped over in her wheelchair (typically to the right, but does go both ways) at baseline secondary to a previous CVA. Patient is not typically confused and does not typically have difficulty with the year, place, short term memory, or people. Weakness and slumped appearance are patient's baseline, however the level of somnolence and confusion are new for her. She is bed-bound at baseline. She currently denies pain, unable to obtain further information due to mental status. Initial VS at presentation: 97.4? F, HR 85, RR 21, 158/49, and 98% on RA. ED workup showed: WBC 20, hemoglobin 8.0 (previously 8.1 on 04/01/2024), INR 1.2, sodium 133, creatinine 2.54 and GFR 18 (previously 1.4 and 35 on 04/01/24), glucose 134, and UA suspicious for UTI. Viral PCR pending. Head CT showed old infarcts in the brain and moderate nonspecific cerebral white matter disease. Chest x-ray showed no acute cardiopulmonary disease. Status at Discharge Functional status at discharge: wheelchair bound Overall status at discharge: patient is back to baseline Time Spent with Patient Time attestation: Total time spent providing and/or coordinating discharge services: Time spent: Greater than 30 minutes Exam Narrative: * GENERAL: Alert and oriented x 2 . No acute distress. * EYES: EOMI. No scleral icterus. PERRLA. * HEENT: Moist mucous membranes. * LUNGS: Clear to auscultation bilaterally. No accessory muscle use. * CARDIOVASCULAR: Regular rate and rhythm. * ABDOMEN: Soft, non tenderness and non-distended. No palpable masses. * EXTREMITIES: 1+ edema. Non-tender * SKIN:Pressure wound to left buttockNo rashes or lesions. Skin warm, dry. * NEUROLOGIC: No focal neurological deficits. CN II-XII grossly intact. Strength greater to LT then RT side bilateral upper and lower extremities, Generalized weakness no noted deficits * PSYCHIATRIC: Unable to assess lethargic DS: Data Data Completed and Pending Labs on day of discharge: Labs from last 24 hours 07/16/24 07/16/24 07/15/24 12:09 08:00 20:27 WBC RBC Hgb Hct MCV MCH MCHC RDW Plt Count MPV Sodium Potassium Chloride Carbon Dioxide Anion Gap BUN Creatinine Estim Creat Clear Calc Estimated GFR Glucose POC Capillary Glucose 146 H 105 163 H Calcium Total Bilirubin AST ALT Alkaline Phosphatase Total Protein Albumin 07/15/24 07/15/24 16:42 13:48 WBC 7.0 RBC 3.09 L Hgb 8.3 L Hct 27.2 L MCV 88.0 MCH 26.9 MCHC 30.5 L RDW 21.0 H Plt Count 288 MPV 11.5 H Sodium 133 L Potassium 3.7 Chloride 105 Carbon Dioxide 20 L Anion Gap 8 BUN 32 H Creatinine 1.94 H Estim Creat Clear Calc 19 Estimated GFR 24 L Glucose 252 H POC Capillary Glucose 151 H Calcium 7.9 L Total Bilirubin 0.4 AST 29 ALT 27 Alkaline Phosphatase 85 Total Protein 6.0 L Albumin 2.3 L Preliminary micro results at discharge 07/12/24 15:39 Blood Culture - Preliminary Blood 07/12/24 14:38 Blood Culture - Preliminary Blood Discharge Plan Discharge Attending physician on discharge: Yang Koroma Consulting providers: Daniel Cedillo; Shanique Brand; Josep Hurtado V.; Moo Henriquez Discharging Clinician: Felicia Warren Anticipated Discharge Date/Time: 07/16/24 13:19 Patient Disposition: SNF Activity: may shower and as tolerated Diet: diabetic Discharge Instructions: UTI * You have completed your course of ABX therapy * Practice good hygiene post void Keep area dry * Encourage ROM exercises in bed * Q2hr turns of load on pressure area * Wound care to buttocks: Continue daily dressing changes with Silver gel, 1 iodoform gauze packing. * Continue local wound care and follow up as needed. How can you care for yourself at home? ? Keep track of any new symptoms or changes in your symptoms. ? Rest until you feel better. ? Be safe with medicines. Take your medicines exactly as prescribed. Call your doctor if you think you are having a problem with your medicine. ? Do not drive after taking a prescription pain medicine. ? Ensure to follow-up with primary care physician as indicated and provide updated medication list provided to you at discharge. When should you call for help? Call 911 anytime you think you may need emergency care. For example, call if: ? You passed out (lost consciousness). Call your doctor now or seek immediate medical care if: ? You have new symptoms like fever, difficulty breathing, Chest pain, vomiting, or rash. ? You have new or different pain. ? You are confused and are having trouble thinking clearly. ? Your symptoms are getting worse. Watch closely for changes in your health, and be sure to contact your doctor if: ? You do not get better as expected. Patient Instructions: Urinary Tract Infection in Older Adults (DC) Patient Language: Uzbek Stand Alone Forms: General Discharge Information, Usp Discharge Follow-up/Referrals: UNKNOWN,DOCTOR [Primary Care Provider] - 2 Weeks (Follow-up with PCP) Discharge Medications: Continued ferrous sulfate 325 mg (65 mg iron) tablet 325 mg PO BID atorvastatin 40 mg Tablet 40 mg PO HS ipratropium-albuterol 0.5 mg-3 mg(2.5 mg base)/3 mL Solution For Nebulization 3 ml INHALATION QID PRN (Reason: Shortness Of Breath) fexofenadine [Alise Allergy] 60 mg Tablet 60 mg PO Q12H hydralazine 25 mg Tablet 25 mg PO TID metoprolol tartrate 25 mg Tablet 25 mg PO BID glucagon HCl [Glucagon (HCl) Emergency Kit] 1 mg Recon Soln 1 mg SUBCUT Q20M PRN (Reason: Hypoglycemia) Rx Instructions: special instructions: if hypoglycemic, unresponsive, and unable to take PO, administer 1mg IM X1, recheck BS in 15 mins, repeat as needed Dextrose Gel 15 g PO Q15M PRN (Reason: Hypoglycemia) Rx Instructions: dextrose gel 40%; amt: 15g; oral Special instructions: 15g PO Q15 min prn for low blood sugar below 70 multivitamin Tablet 1 tablet PO DAILY verapamil 40 mg Tablet 40 mg PO Q8H sennosides-docusate sodium [Senna with Docusate Sodium] 8.6-50 mg Tablet 1 tab-cap PO DAILY tramadol 50 mg Tablet 40 mg PO TID PRN (Reason: Pain) ascorbic acid (vitamin C) 500 mg Tablet 500 mg PO DAILY benzonatate 100 mg Capsule 100 mg PO TID insulin aspart U-100 [Novolog U-100 Insulin aspart] 100 unit/mL Solution 1 sliding scale dose SUBCUT USEASDIRECTD Rx Instructions: If blood sugar <70 call MD If blood sugar is 150-200, give 4u 201-250, give 8u 251-300, give 12u 301-350, give 16u 351-400, give 20u >400, give 24u If blood sugar is >400u, call MD Before meals and at bedtime pantoprazole 40 mg Tablet,Delayed Release (Dr/Ec) 40 mg PO QAM gentamicin 0.1 % cream 1 applic TOPICAL PRN PRN (Reason: Wound Care) Rx Instructions: left buttock abcess 50/50 w/santyl, cover w/calcium alginate, silicone border qd polyethylene glycol 3350 [Miralax] 17 gram/dose Powder 17 g PO DAILY albuterol sulfate 90 mcg/actuation Hfa Aerosol Inhaler 2 puff INHALATION QID PRN (Reason: SOB or wheezing) ondansetron 4 mg Tablet,Disintegrating 4 mg PO Q8H PRN (Reason: Nausea) guaifenesin [Mucinex] 600 mg Tablet Extended Release 12hr 600 mg PO Q8H naloxone [Narcan] 4 mg/actuation [place],Non-Aerosol 1 spray INTRANASAL Q2-3M PRN (Reason: Opioid Overdose) Lantus Solostar U-100 Insulin 18 units subcut HS Discontinued gabapentin 100 mg capsule 100 mg PO TID Date of admission: 07/13/24 10:25 Primary Care Provider: UNKNOWN,DOCTOR Admitting Provider: Justen Russo Attending physician on admission: Felicia Warren Condition: Stable Quality -Patient's previous records reviewed on admission -ER notes reviewed in detail on admission -discussed all findings and current treatment plan with patient/Family/POA -Consultations reviewed for recommendations -Patient's disposition for safe discharge discussed with transplant case manager Dictation performed by [employer] direct speech recognition software, therefore detail maker and fitter variants and typographical errors may occur. Hospitalist MIPS Heart Failure (Exclusion) Patient has history of Heart Transplant or Left Ventricular Assistive Device?: No IF YES, STOP HERE Heart Failure (Qualifier) Patient has current or prior documentation of LVEF less than or equal to 40%, or mod/servere depressed LVSF?: No IF NO, STOP HERE
--- NOTE | 2024-07-16 15:23 | PC.NURSE ---
1524 Report called to Sisi @ [facility]. COVID to be collected, DC wound photo to be obtain. Will fax DC papers and COVID result mann.
[2024-07-16 16:40] LABS: SARS-CoV-2 RNA PCR Negative (Negative)
[2024-07-16 17:16] LABS: Glucose Point of Care 109 mg/dl (65-105)
== END 2024-07-16 17:20 | DRG 871 ==
LOC: ANHED 14:33 → ANH3MEDSUR 15:28
PROVIDERS: Student in an Organized Health Care Education/Training Program; Admitting Provider General Practice; Emergency Provider Emergency Medicine; Visit Provider Nurse Practitioner Family
DX: A41.9 Sepsis, unspecified organism (principal); G93.41 Metabolic encephalopathy; N39.0 Urinary tract infection, site not specified; N17.9 Acute kidney failure, unspecified; I13.0 Hypertensive heart and chronic kidney disease with heart failure and stage 1 through stage 4 chronic kidney disease, or unspecified chronic kidney disease; B96.20 Unspecified Escherichia coli [E. coli] as the cause of diseases classified elsewhere; E11.22 Type 2 diabetes mellitus with diabetic chronic kidney disease; N18.30 Chronic kidney disease, stage 3 unspecified; I73.9 Peripheral vascular disease, unspecified; G47.33 Obstructive sleep apnea (adult) (pediatric); E86.0 Dehydration; D50.9 Iron deficiency anemia, unspecified; M85.80 Other specified disorders of bone density and structure, unspecified site; J44.9 Chronic obstructive pulmonary disease, unspecified; I50.9 Heart failure, unspecified; R91.8 Other nonspecific abnormal finding of lung field; Z66 Do not resuscitate; L89.329 Pressure ulcer of left buttock, unspecified stage; L89.319 Pressure ulcer of right buttock, unspecified stage; Z86.718 Personal history of other venous thrombosis and embolism; Z99.3 Dependence on wheelchair; Z86.73 Personal history of transient ischemic attack (TIA), and cerebral infarction without residual deficits; Z85.3 Personal history of malignant neoplasm of breast; Z90.49 Acquired absence of other specified parts of digestive tract; Z74.01 Bed confinement status; Z79.4 Long term (current) use of insulin
CPT/HCPCS: 36415; 36430; 70450; 71045; 80048; 80053; 81001; 82948; 83036; 83605; 83735; 84443; 85014; 85018; 85025; 85027; 85055; 85610; 85730; 86850; 86900; 86901; 86923; 87040; 87086; 87186; 87635; 87637; 93005; 96361; 96365; 96375; 99212; 99285; A9270; G0378; G0463; J0696; J1815; J7030; J7050; P9016

== ENCOUNTER 2025-04-04 06:08 | Emergency (ER) | payer MEDICARE, MEDICAID, SELFPAY ==
--- OUTSIDE RECORDS SUMMARY | 2010-02-04 08:00 | XMS_ITS | Continuity of Care Document ---
Author Organization [facility] Address [address] [facility] [address] [place] [address] Phone Care Team Providers Care Railroad Supervisor Of Engines Name Role Phone Vicky Saldana Unavailable Unavailable Procedures Procedure Date Office/outpatient Visit, Est Post-op Follow-up Visit Refraction Post-op Follow-up Visit Post-op Follow-up Visit Remove Cataract, Insert Lens Office/outpatient Visit, Est IOLMaster-Professional Post-op Follow-up Visit After Cataract Laser Surgery Office/outpatient Visit, Est Office/outpatient Visit, Est Eye Exam & Treatment Eye Exam & Treatment Advance Directives Directive Yes / No Effective Date File Name No Information Encounters Encounter Description Practice Location Reason(s) For Visit Diagnoses Date Provider Providers Copied on Encounter Office/outpat ient Visit, Est [facility], [address] [place] [address] [address], [place], [place], [id number], [place] tel:[phone] SEC [facility] No Information 0 Shana Han [address] , [address], [place], [address], [place]. tel:[phone] [facility], [address], [place], [place], [address], [place] tel:[phone] [facility] No Information 4-201 0 Waite OD Theo. [address] , [address], [place], [place], [facility], [place]. tel:[phone] [facility], [address], [place], [place], [id number], [place] tel:[phone] [place] [address] No Information 2-201 0 Shana Perry. [address] , [address], [place], [facility], [place]. tel:[phone] [facility], [address], [place], [place], [address], [place] tel:[phone] [place] [address] No Information May-3 1-200 9 Waite OD Theo. [address] [facility] , [address], [place], [facility], [place]. tel:[phone] [facility], [address], [place], [place], [address], [place] tel:[phone] [place] [address] No Information May-3 0-200 9 Shana Perry. [address] , [address], [place], [facility], [place]. tel:[phone] Office/outpat ient Visit, Est [facility], [address], [place], [place], [address], [place] tel:[phone] [facility] No Information Dec-1 5-200 9 Shana Perry. [address] , [address], [place], [facility], [place]. tel:[phone] Referring Provider: Vicky Salmeron, [address], [place], [facility]. tel:[phone] [facility], [address], [place], [place], [address], [place] tel:[phone] [facility] No Information Waldemar-0 9-200 9 Shana Vicky. [address] , [address], [place], [facility], . tel:[phone] [facility], [address], [place], [place], [id number], tel:[phone] [facility] No Information May-2 0-200 9 Shana Vicky. [address] , [address], [place], [facility], . tel:[phone] Office/outpat ient Visit, Est [facility], [address] [place] [address] [address], [place], [place], [address], tel:[phone] [facility] No Information May-0 8-200 9 Shana Vicky. [address] , [address], [place], [facility], . tel:[phone] Office/outpat ient Visit, Est [facility], [address] [place] [address] [address], [place], [place], [address], tel:[phone] [facility] No Information Nov-0 7-200 8 Shana Wolfn. [address], [place], [facility], . tel:[phone] [facility], [address] [place] [address] [address], [place], [place], [address], [place] tel:[phone] [facility] No Information May-0 2-200 8 Shana Wolfn. [address] , [address], [place], [facility], . tel:[phone] [facility], [address] [place] [address] [address], [place], [place], [address], [place] tel:[phone] [facility] No Information Apr-2 0-200 7 Shana Wolfn. [address] , [address], [place], [address], [place]. tel:[phone] Family History Family Member Type Diagnosis Age At Onset No Information Payers Payer name Insurance type Covered libertarian ID Authoriza tion(s) No Information Social History Type Description Quantity Date Captured Comments Sex Female Smoking Status No Information Chief Complaint And Reason For Visit No Information Reason For Referral Reason For Referral No Information History Of Present Illness Encounter Date Complaint History Of Prese nt Illness No Information Functional Status Date Functional Assessmen t No Information Instructions Date Instruction Additional Infor mation No Information Assessments Type Assessment Date No Information Patient Care Teams Name Effective Dates (start - stop) Status Members No Information
[2025-04-04 06:09] VITALS: BP 130/113; PULSE 128; RESP 47; TEMP 38.5; O2SAT 91
--- NOTE | 2025-04-04 06:25 | PC.NURSE ---
Spoke with Fabby España - states pt should not have been sent to ER. Pt is hospice. Spoke with Pt's HORTENCIA - Harika Malone - she states would like to keep pt comfortable and please send her back to facility. EDP aware and Primary RN aware.
[2025-04-04 06:26] VITALS: O2SAT 90
[2025-04-04 06:27] VITALS: O2SAT 90
[2025-04-04] MEDS: ACETAMINOPHEN 650 MG SUPPOSITORY RECTAL (06:28)
--- NOTE | 2025-04-04 06:32 | ED.AMS ---
HPI - Altered Mental Status General Chief Complaint: Altered Mental Status Stated Complaint: AMS Time Seen by Provider: 04/04/25 06:24 History of Present Illness HPI narrative: 89-year-old female with history of CKD, diabetes, COPD. Patient presents via EMS for concerns of mental status changes. Patient is DNR/DNI and comfort measures only but EMS was not aware that patient is under current hospice care by [facility] at her custodial facility. Patient was found by morning staff not as responsive as she normally is and they noted that she had low oxygen saturation. Patient transported for evaluation the hospital. The [facility] business services coordinator did contact the hospital and made us aware of patient's inadvertent transfer to the facility as she was not supposed to be sent out for evaluation per the patient's care plan and requests us to transfer back to nursing facility and contact POA to confirm discharge and transfer back to hospice. Charge nurse spoke to the power of bankruptcy attorney who confirms outside of comfort measures and to transfer the patient back expediently. Related Data Home Medications ?Medication ?Instructions ?Recorded ?Confirmed ?Last Taken ?Type ferrous sulfate 325 mg (65 mg 325 mg PO BID 05/31/19 07/12/24 Unknown History iron) tablet Lantus Solostar U-100 Insulin 18 units subcut HS 03/08/21 07/12/24 Unknown History Dextrose Gel 15 g PO Q15M PRN Hypoglycemia 03/26/21 07/12/24 Unknown History atorvastatin 40 mg tablet 40 mg PO HS 03/26/21 07/12/24 Unknown History fexofenadine 60 mg tablet (Alise 60 mg PO Q12H 03/26/21 07/12/24 Unknown History Allergy) glucagon HCl 1 mg solution for 1 mg subcut Q20M PRN Hypoglycemia 03/26/21 07/12/24 Unknown History injection (Glucagon (HCl) Emergency Kit) hydralazine 25 mg tablet 25 mg PO TID 03/26/21 07/12/24 Unknown History ipratropium 0.5 mg-albuterol 3 mg 3 ml inhalation QID PRN Shortness 03/26/21 07/12/24 Unknown History (2.5 mg base)/3 mL nebulization Of Breath soln metoprolol tartrate 25 mg tablet 25 mg PO BID 03/26/21 07/12/24 Unknown History albuterol sulfate 90 mcg/actuation 2 puff inhalation QID PRN SOB or 03/28/24 07/12/24 Unknown History aerosol inhaler wheezing ascorbic acid (vitamin C) 500 mg 500 mg PO DAILY 03/28/24 07/12/24 Unknown History tablet benzonatate 100 mg capsule 100 mg PO TID 03/28/24 07/12/24 Unknown History gentamicin 0.1 % topical cream 1 applic topical PRN PRN Wound Care 03/28/24 07/12/24 Unknown History guaifenesin 600 mg tablet, 600 mg PO Q8H 03/28/24 07/12/24 Unknown History extended release 12 hr (Mucinex) insulin aspart U-100 100 unit/mL 1 sliding scale dose subcut 03/28/24 07/12/24 Unknown History subcutaneous solution (Novolog USEASDIRECTD U-100 Insulin aspart) multivitamin 1 tablet PO DAILY 03/28/24 07/12/24 Unknown History naloxone 4 mg/actuation nasal 1 spray intranasal Q2-3M PRN 03/28/24 07/12/24 Unknown History spray (Narcan) Opioid Overdose ondansetron 4 mg disintegrating 4 mg PO Q8H PRN Nausea 03/28/24 07/12/24 Unknown History tablet pantoprazole 40 mg tablet,delayed 40 mg PO QAM 03/28/24 07/12/24 Unknown History release polyethylene glycol 3350 17 17 g PO DAILY 03/28/24 07/12/24 Unknown History gram/dose oral powder (Miralax) sennosides 8.6 mg-docusate sodium 1 tab-cap PO DAILY 03/28/24 07/12/24 Unknown History 50 mg tablet (Senna with Docusate Sodium) tramadol 50 mg tablet 40 mg PO TID PRN Pain 03/28/24 07/12/24 Unknown History verapamil 40 mg tablet 40 mg PO Q8H 03/28/24 07/12/24 Unknown History Allergies Allergy/AdvReac Type Severity Reaction Status Date / Time morphine Allergy Unknown Verified 03/30/24 13:13 tramadol Allergy Unknown Verified 03/30/24 13:13 Review of Systems Review of Systems: ROS unobtainable: Yes unobtainable due to medical condition PMFSH Past Medical History Medical History Systolic murmur Peripheral arterial disease Chronic obstructive pulmonary disease CHF (congestive heart failure) CVA (cerebral vascular accident) Chronic kidney disease, stage 3 Cancer of right breast Insulin dependent type 2 diabetes mellitus Deep venous thrombosis Hypertension Obstructive sleep apnea previously on ASV Iron deficiency anemia Osteopenia Pulmonary nodules Stable Last CT-Scan 03/08/2017. Surgical History Surgical History History of cholecystectomy History of carotid endarterectomy Family History Family History Mother Family history of diabetes mellitus in first degree relative Family history of malignant neoplasm of uterus, Onset Age: 48 Hypertension, Onset Age: 92 Family history of malignant neoplasm of ovary Diabetes mellitus, Onset Age: 92 Family history of cardiovascular disease, Onset Age: 92 Father Family history of heart disease in male family member before age 55 Hypertension, Onset Age: 75 Family history of cardiovascular disease, Onset Age: 75 Sibling Diabetes mellitus Other Family history of malignant neoplasm of male breast Social History Social History Social History: Surrogate medical decision maker: Joan Westbrook, friend. Code status: Do not resuscitate. Smoking status: Never smoker Alcohol intake: never Do You Feel Safe in your Home?: Yes Lack of Transportation: No Lack of Food: Never True Current Housing: I Have Housing Concerned About Future Housing: No Difficulty Paying Gas/Electric Bills: No Difficulty Paying for Meds: No Currently Unemployed: No Education: High School Diploma/GED Difficulty w/ Childcare or Family Care: No Spiritual care concerns: No Exam Narrative: GENERAL: Ill-appearing, tachypneic HEAD: Normocephalic EYES: PERRLA ENT: Dry but no bleeding NECK: Supple. CHEST: Tachypneic, coarse breath sounds HEART: Warm extremities ABDOMEN: Soft nontender nondistended EXTREMITIES: No edema peripherally SKIN: Warm, dry, no rash. NEURO: Alert to her name Course Vital Signs Vital signs: Vital Signs Temperature 38.5 C H 04/04/25 06:09 Pulse Rate 128 H 04/04/25 06:09 Respiratory Rate 47 H 04/04/25 06:09 Blood Pressure 130/113 H 04/04/25 06:09 Pulse Oximetry 91 04/04/25 06:09 Oxygen Delivery Room Air 04/04/25 06:09 Temperature 38.5 C H 04/04/25 06:09 Pulse Rate 128 H 04/04/25 06:09 Respiratory Rate 47 H 04/04/25 06:09 Blood Pressure 130/113 H 04/04/25 06:09 Pulse Oximetry 90 04/04/25 06:27 Oxygen Delivery Nasal Cannula 04/04/25 06:27 Oxygen Flow Rate 2 04/04/25 06:27 MDM - Altered Mental Status MDM Narrative Medical decision making narrative: 89-year-old female with history of CKD, diabetes, COPD. Patient presents via EMS for concerns of mental status changes. Patient is DNR/DNI and comfort measures only but EMS was not aware that patient is under current hospice care by [facility] at her custodial facility. Patient was found by morning staff not as responsive as she normally is and they noted that she had low oxygen saturation. Patient transported for evaluation the hospital. The [facility] business services coordinator did contact the hospital and made us aware of patient's inadvertent transfer to the facility as she was not supposed to be sent out for evaluation per the patient's care plan and requests us to transfer back to nursing facility and contact POA to confirm discharge and transfer back to hospice. Charge nurse spoke to the power of bankruptcy attorney who confirms outside of comfort measures and to transfer the patient back expediently. Patient does have a fever here and slightly hypoxic so we administered rectal Tylenol and supplemental oxygen for comfort and arranged ambulance transfer services back to her facility for continued hospice care and comfort measures at this time without any further interventions or treatments, in line with patient's goals of care and POA/business services coordinator discussions with us. Medical Records Attestation: I reviewed the patient's medical records. Lab Data Attestation: I reviewed the patient's lab results. Labs: Lab Results 04/04/25 Range/Units 06:17 POC Capillary Glucose 70 (65-105) mg/dl Discharge Plan Discharge Clinical Impression: Hospice care patient, Fever Patient Disposition: Hospice - Home Condition: Terminal Patient Language: Georgian Prescriptions: No Action ferrous sulfate 325 mg (65 mg iron) tablet 325 mg PO BID atorvastatin 40 mg Tablet 40 mg PO HS ipratropium-albuterol 0.5 mg-3 mg(2.5 mg base)/3 mL Solution For Nebulization 3 ml INHALATION QID PRN (Reason: Shortness Of Breath) fexofenadine [Alise Allergy] 60 mg Tablet 60 mg PO Q12H hydralazine 25 mg Tablet 25 mg PO TID metoprolol tartrate 25 mg Tablet 25 mg PO BID glucagon HCl [Glucagon (HCl) Emergency Kit] 1 mg Recon Soln 1 mg SUBCUT Q20M PRN (Reason: Hypoglycemia) Rx Instructions: special instructions: if hypoglycemic, unresponsive, and unable to take PO, administer 1mg IM X1, recheck BS in 15 mins, repeat as needed Dextrose Gel 15 g PO Q15M PRN (Reason: Hypoglycemia) Rx Instructions: dextrose gel 40%; amt: 15g; oral Special instructions: 15g PO Q15 min prn for low blood sugar below 70 multivitamin Tablet 1 tablet PO DAILY verapamil 40 mg Tablet 40 mg PO Q8H sennosides-docusate sodium [Senna with Docusate Sodium] 8.6-50 mg Tablet 1 tab-cap PO DAILY tramadol 50 mg Tablet 40 mg PO TID PRN (Reason: Pain) ascorbic acid (vitamin C) 500 mg Tablet 500 mg PO DAILY benzonatate 100 mg Capsule 100 mg PO TID insulin aspart U-100 [Novolog U-100 Insulin aspart] 100 unit/mL Solution 1 sliding scale dose SUBCUT USEASDIRECTD Rx Instructions: If blood sugar <70 call MD If blood sugar is 150-200, give 4u 201-250, give 8u 251-300, give 12u 301-350, give 16u 351-400, give 20u >400, give 24u If blood sugar is >400u, call MD Before meals and at bedtime pantoprazole 40 mg Tablet,Delayed Release (Dr/Ec) 40 mg PO QAM gentamicin 0.1 % cream 1 applic TOPICAL PRN PRN (Reason: Wound Care) Rx Instructions: left buttock abcess 50/50 w/santyl, cover w/calcium alginate, silicone border qd polyethylene glycol 3350 [Miralax] 17 gram/dose Powder 17 g PO DAILY albuterol sulfate 90 mcg/actuation Hfa Aerosol Inhaler 2 puff INHALATION QID PRN (Reason: SOB or wheezing) ondansetron 4 mg Tablet,Disintegrating 4 mg PO Q8H PRN (Reason: Nausea) guaifenesin [Mucinex] 600 mg Tablet Extended Release 12hr 600 mg PO Q8H naloxone [Narcan] 4 mg/actuation [place],Non-Aerosol 1 spray INTRANASAL Q2-3M PRN (Reason: Opioid Overdose) Lantus Solostar U-100 Insulin 18 units subcut HS Follow-up/Referrals: UNKNOWN,DOCTOR [Primary Care Provider] Time of Disposition: 06:39
--- OUTSIDE RECORDS SUMMARY | 2025-04-04 06:34 | XMS_ITS | Encounter Summary ---
Author Organization [facility] Healthcare Address [address] [place] [address] Care Team Providers Care Endoscopy Specialty Technician Name Role Phone No, Physician Primary Care Provider Unknown, Notinfile Primary Care Provider Unavail able Alexa Medrano MD Unavailable Miscellaneous, Not In File Unavailable Unava ilable Mariella Frazier MD Primary Care Provider Figueroa Patel MD Primary Care Provider [phone] Encounter Details Date Type Department Care Team (Late st Contact Info) Description 11/22/2020 Documentation [facility] [address] [place] [address] Jefferson Bains RN Social History Tobacco Use Types Packs/Day Years Used Date Smoking Tobacco: Never Smokeless Tobacco: Never Social Connection and Isolation Panel Answer Date Recorded In a typical week, [...] place to sleep or slept in a custodial (including now)? No 11/22/2020 Comments No Sex and Gender Information Value Date Recorded Sex Assigned at Not on file Legal Sex Female 8:19 AM CDT Gender Identity Not on file Sexual Orientation Not on file documented as of this encounter Plan of Treatment Not on file documented as of this encounter Visit Diagnoses Not on filedocumented in this encounter Care Teams Endoscopy Specialty Technician Relationship Specialty Start Date End Date No, Physician PCP - General 11/22/20 11/25/20 Unknown, Notinfile PCP - General 11/26/20 01/02/21 Mariella Frazier MD [address] [place] [address] PCP - General Family Medicine 01/03/21 02/10/24 Figueroa Patel MD [address] [place] [address] PCP - General Internal Medicine 02/11/24 Alexa Medrano MD [address] [place] [address] 11/08/20 Miscellaneous, Not In File 11/15/20 documented as of this encounter
--- OUTSIDE RECORDS SUMMARY | 2025-04-04 06:34 | XMS_ITS | Clinical Summary ---
Author Organization [facility] Address [address] [place] [id number] Care Team Providers Care Alterations Sewer Name Role Phone Alexa Medrano MD Unavailable [phone] Miscellaneous, Not In File Unavailable Unava ilable Figueroa Patel MD Primary Care Provider Allergies Active Allergy Reactions Criticality Noted Date Comments Morphine Nausea & Vomiting Low 11/19/2020 Tramadol Nausea & Vomiting Low 11/16/2022 Medications blood-glucose meter (SharematicUCH ULTRA2) kit 0 kit 0 3 Active [...] note for details. Pyogenic inflammation of bone 11/05/2022 Assessment & Plan (01/07/2023 3:08 PM CDT): [...] for IR removal - No need for halfway suppression as all hardware was removed in [...] artery disease) 11/09/2020 CHF (congestive heart failure) 11/09/2020 H/O carotid stenosis 11/09/2020 HTN (hypertension) 11/09/2020 Mixed hyperlipidemia 11/09/2020 DAVID on CPAP 11/09/2020 Pilon fracture of left tibia 11/08/2020 Overview (11/08/2020): Added automatically from request for surgery [id number] Anemia of chronic renal failure 04/26/2019 Malignant neoplasm of upper- outer quadrant of right breast in female, estrogen receptor positive 04/25/2018 Chronic diastolic congestive heart failure 07/25 Other insomnia 07/25/2017 Post-menopausal 12/18/2016 History of breast cancer 06/20/2015 Osteopenia 06/20/2015 Immunizations Immunization Administration Dates Next Due Tdap 11/08/2020(Deferred: Patient Refused - Patient received Tdap today at [facility] before transfer to [facility] (lot: [id number]; mfg: TISSUELAB)) Surgical History Surgery Date Site/Laterality Comments CHOLECYSTECTOMY Cholecystectomy MASTECTOMY, PARTIAL CHOLECYSTECTOMY OPEN CAROTID ENDARTERECTOMY Left MASTECTOMY PARTIAL / LUMPECTOMY Right CENTRAL LINE PLACEMENT > 5 YEARS 12/07/2022 N/A Medical History Medical History Date Comments Anemia of chronic kidney failure 2018 Malignant neoplasm of upper- outer quadrant of right female breast (HCC) Chronic diastolic congestive heart failure (HCC) History of anemia due to chr onic kidney disease CAD (coronary artery disease) Chronic diastolic (congestiv e) heart failure CKD (chronic kidney disease) Hyperlipidemia Hypertension Malignant neoplasm of upper- outer quadrant of right female breast (HCC) ER MT positive 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 Anastrazole discontinued 06/2020 DAVID (obstructive sleep apnea) On CPAP Osteopenia Type 2 diabetes mellitus Carotid stenosis Status post lef t CEA [...] oz pur e alcohol) Social Connection and Isolation Panel Answer Date Recorded In a typical week, how many times do you talk on the phone with family, friends, or neighbors? More than three times a week 11/22/2020 How often do you get togethe r with friends or relatives? More than three times a week 11/22/2020 Attends [employer] Not on file 11/22 Active Member [...] place to sleep or slept in a skilled nursing (including now)? No 11/22/2020 Personal Safety Answer [...] 79 01/06/2023 3:11 PM CDT Temperature 36.8 C (98.3 F) 01/06/2023 3:11 PM CDT Respiratory Rate 16 12/07/2022 3:14 PM CDT Oxygen Saturation 97% 12/07/2022 3:14 PM CDT Inhaled Oxygen Concentration - - Weight 95.3 kg (210 lb) 12/03/2022 12:00 PM CDT Height 165 cm (5' 4.96) 01/06/2023 3:11 PM CDT Body Mass Index 34.95 12/03/2022 12:00 PM CDT Plan of Treatment Health Maintenance Due Date Last Done Comments Albumin Creatinine Ratio, Urine 1935 Depression Screening 1935 Dilated Eye Exam 1935 Foot Exam 1935 Hepatitis B Screening 12/23/1953 Well Visit 65+ 12/23/2000 Zoster Vaccine (2 of 3) 03/20/2014 01/23/2014 Osteoporosis Screening-Bone Density Scan 04/07/2021 04/07/2019, 04/07/2019, 03/08/2017, Additional history exists Hemoglobin A1C 05/18/2023 11/16/2022, 06/0 10/2022, 12/02/2020, Additional history exists Lipid Panel 12/04/2023 12/03/2022, 12/02/2020 eGFR 12/07/2023 12/06/2022, 06/2 10/2022, 12/04/2022, Additional history exists Fall Risk Assessment 12/08/2023 12/07/2022 Influenza Vaccine (#1) 2025 0, 03/14/2019, 03/09/2019, Additional history exists DTaP/Tdap/Td Vaccine (3 - Td or Tdap) 11/08/2030 11/08/2020, 03/06/2015 Pneumococcal vaccine 65+ Completed 12/17/2016, 07/16 Medical Devices Implanted Type Area It Systems Administrator Device Identifier Shelf Expiration Date Model / Serial / Lot Implantable Loop Recorder- 021 Implanted:10/2020 (Quantity not on file) Implantable Loop Recorder Chest Synthes 294.55 Schanz 5mm 170mm 50mm Blunt Trocar Point Xlong Screw External - S000 - [id number] Implanted:Qty: 2 on 11/09/2020 by Blake Barnard MD at [facility] Pin Left: Ankle Synthes I 294.55 / 000 / 000 [employer] Ortho [id number] Evos 3.5mm 110mm Self Tap Cortex Screw Bone Sterile - [id number] Implanted:Qty: 1 on 11/21/2020 by Eleuterio Russell MD at [facility] Screw Left: Leg [employer]o [id number] / / [employer] Ortho [id number] Evos 94mm 8 Hole Lock 1/3 Tubular Plate Bone Sterile 3.5mm Screw - [id number] Implanted:Qty: 1 on 11/21/2020 by Eleuterio Russell MD at [facility] Left: Leg [employer] rtho [id number] / / [employer] Ortho [id number] Evos 94mm 8 Hole Lock 1/3 Tubular Plate Bone Sterile 3.5mm Screw - [id number] Implanted:Qty: 1 on 11/21/2020 by Eleuterio Russell MD at [facility] Left: Leg [employer]o [id number] / / [employer] Ortho [id number] Evos Mini 68mm 8 Hole Low Profile Variable Angle Small Bone Long - [id number] Implanted:Qty: 1 on 11/21/2020 by Eleuterio Russell MD at [facility] Left: Leg [employer]o [id number] / / Screw- Implanted:Qty: 1 on 11/21/2020 by Eleuterio Russell MD Left: Tibia [employer] [id number] / / [employer] Ortho [id number] Evos 3.5mm 28mm Self Tap Cortex Screw Bone Sterile - [id number] Implanted:Qty: 1 on 11/21/2020 by Eleuterio Russell MD at [facility] Left: Leg [employer]o [id number] / / [employer] Ortho [id number] Evos 3.5mm 26mm Self Tap Cortex Screw Bone Sterile - [id number] Implanted:Qty: 1 on 11/21/2020 by Eleuterio Russell MD at [facility] Left: Leg [employer]o [id number] / / [employer] Ortho [id number] Evos 3.5mm 24mm Self Tap Cortex Screw Bone Sterile - [id number] Implanted:Qty: 1 on 11/21/2020 by Eleuterio Russell MD at [facility] Left: Leg [employer]o [id number] / / [employer] Ortho [id number] Evos 4.7mm 28mm Full Thread Screw Bone Sterile Osteopenia - [id number] Implanted:Qty: 1 on 11/21/2020 by Eleuterio Russell MD at [facility] Left: Leg [employer] [id number] / / [employer] Ortho [id number] 4mm 4.5mm 10mm Self Retaining Screwdriver Tap T8 Full Thread - [id number] Implanted:Qty: 1 on 11/21/2020 by Eleuterio Russell MD at [facility] Left: Leg [employer]o [id number] / / [employer] Ortho [id number] Evos 3.5mm 36mm Self Tap Lock Screw Bone Sterile - [id number] Implanted:Qty: 1 on 11/21/2020 by Eleuterio Russell MD at [facility] Left: Leg [employer]o [id number] / / [employer] Ortho [id number] 2.7mm 4.5mm 22mm Self Retaining Screwdriver Self Tap Flat Head - [id number] Implanted:Qty: 1 on 11/21/2020 by Eleuterio Russell MD at [facility] Left: Leg [employer] [id number] / / [employer] Ortho [id number] 2.7mm 4.3mm 44mm Lock Self Retain Flat Head Long Bone Small Bone - [id number] Implanted:Qty: 2 on 11/21/2020 by Eleuterio Russell MD at [facility] Left: Leg [employer]o [id number] / / Daig Krzysztof [id number] Device Closure Angio-Seal Vip Bondek-Plus Polyglyd L70 Cm Od6 Fr Odsec.035 In Vascular - [id number] Implanted:Qty: 1 on 06/04/2021 at [facility] Terumhandsomexcutive Krzysztof 11/11/2021 [id number] / / [id number] Explanted Type Area It Systems Administrator Device Identifier Shelf Expiration Date Model / Serial / Lot [employer]Or tho [id number] 2.7mm 4.3mm 32mm Lock Self Retain Flat Head Long Bone Small Bone - [id number] Explanted:Qty: 1 on 11/21/2020 by Eleuterio Russell MD at [facility] Left: Leg [employer]Or tho [id number] / / [employer] [id number] Van .062in 9in Trocar Point One End Orthopedic Wire - [id number] Explanted:Qty: 3 on 11/21/2020 by Eleuterio Russell MD at [facility] Left: Leg [employer] [id number] / / Procedures Procedure Name Priority Date/Time Associated Diagnosis Comments EGFR Routine 12/06/2022 10:12 PM CDT LIPID PANEL Routine 12/03/2022 9:24 PM CDT POCT HEMOGLOBIN A1C Routine 11/16/2022 3 :12 PM CDT from Last 3 Months or Most Recently Relevant to Health Maintenance Results * (ABNORMAL) eGFR (12/06/2022 10:12 PM CDT) eGFR 27(L) 90 - 130 mL/min/1. 73 m2 [facility] Comment: Interpretive Data Reference Interval Normal >/= 90 mL/min/1.73m2 Mildly decreased* 60 - 89 mL/min/1.73m2 Mildly to moderately decreased 45 - 59 mL/min/1.73m2 Moderately to severely decreased 30 - 44 mL/min/1.73m2 Severely decreased 15 - 29 mL/min/1.73m2 Kidney Failure < 15 mL/min/1.73m2 *Relative to young adult level Estimated glomerular [...] NP LAB BLOOD ORDERABLES Nikki caraballo Result [facility] [place] [address] * Lipid panel (12/03/2022 9:24 PM CDT) Cholesterol 122 30 - 199 mg/dL [facility] Comment: Interpretive Data Ages < or = 19 years Acceptable: <170 mg/dL Borderline high: 170-199 mg/dL High: >or= 200 mg/dL Ages > or = 20 years Desirable: <200 mg/dL Borderline high: 200-239 mg/dL High: >or= 240 mg/dL Literature References: 1. Expert Panel on Integrated Guidelines for Cardiovascular Health and Risk Reduction in Children and Adolescents. Pediatrics 2011;128:S213 2. NCEP Expert Panel. Circulation 2004;110:227 Current Interpretive Data was last revised on 2018. Triglycerides 130 <=149 mg/dL [facility] Comment: Interpretive Data Ages < or = 9 years Acceptable: <75 mg/dL Borderline high: 75-99 mg/dL High: >or= 100 mg/dL Ages 10 to 20 years Acceptable: <90 mg/dL Borderline high: 90-129 mg/dL High: >or= 130 mg/dL Ages > or = 20 years Desirable: <150 mg/dL Borderline high: 150-199 mg/dL High: 200-499 mg/dL Very high: >or= 499 mg/dL Literature References: 1. Expert Panel on Integrated Guidelines for Cardiovascular Health and Risk Reduction in Children and Adolescents. Pediatrics 2011;128:S213 2. NCEP Expert Panel. Circulation 2004;110:227 Current Interpretive Data was last revised on 2018. HDL 40 >=40 mg/dL [facility] Comment: Interpretive Data Ages < or = 19 years Acceptable: >45 mg/dL Borderline low: 40-45 mg/dL Low: <40 mg/dL Ages > or = 20 years Desirable: >or= 60 mg/dL Low: <40 mg/dL Literature References: 1. Expert Panel on Integrated Guidelines for Cardiovascular Health and Risk Reduction in Children and Adolescents. Pediatrics 2011;128:S213 2. NCEP Expert Panel. Circulation 2004;110:227 Current Interpretive Data was last revised on 2018. LDL, calculated 56 <=129 mg/dL [facility] Comment: Interpretive Data Ages < or = 19 years Acceptable: <110 mg/dL Borderline high: 110-129 mg/dL High: >or= 130 mg/dL Ages > or = 20 years Optimal: <100 mg/dL Near optimal: 100-129 mg/dL Borderline high: 130-159 mg/dL High: >160 mg/dL Literature References: 1. Expert Panel on Integrated Guidelines for Cardiovascular Health and Risk Reduction in Children and Adolescents. Pediatrics 2011;128:S213 2. NCEP Expert Panel. Circulation 2004;110:227 Current Interpretive Data was last revised on 2018. Non-HDL Cholesterol 82 mg/dL [facility] Comment: Interpretive Data Ages < or = 19 years Acceptable: <120 mg/dL Borderline high: 120-144 mg/dL High: >145 mg/dL Ages > or = 20 years When triglycerides are >200 mg/dL, Non-HDL cholesterol is a secondary target of therapy with treatment goals that are 30 mg/dL greater than the LDL cholesterol target. Literature References: 1. Expert Panel on Integrated Guidelines for Cardiovascular Health and Risk Reduction in Children and Adolescents. Pediatrics 2011;128:S213 2. NCEP Expert Panel. Circulation 2004;110:227 Current Interpretive Data was last revised on 2018. Chol/HDL ratio 3 [facility] Blood 12/03/2022 9:24 PM CDT 12/03/2022 10:37 PM CDT us Eleuterio Russell MD LAB BLOOD ORDERA BLES Final Result [facility] [place] [address] * (ABNORMAL) POCT hemoglobin A1c (11/16/2022 3:12 PM CDT) Hgb A1C, POC 6.5(H) 4.0 - 5.6 % [facility] Est Average Gluc POC 140 mg/dL [facility] Comment: The ADA recommends reporting an estimated Average Glucose (eAG) with all Hemoglobin A1c results using the equation derived from a study of 507 normal and diabetic adults. Minority populations were underrepresented and children were not included. (Diabetes Care 31:3286-3449, 2008). The eAG is not equivalent to a fasting glucose. Blood 11/16/2022 3:12 PM CDT 11/16/2022 3:12 PM CDT Eleuterio Russell MD POINT OF CARE TE ST ORDERABLES Final Result [facility] Department [place] [address] from Last 3 Months or Most Recently Relevant to Health Maintenance Insurance [employer] MEDICARE ADVANTAGE [facility] MEDICARE Address: [address] [address] [place] [address] [place] [address] Advance Directives For more information, please contact: [phone] Documents on File Type Date Recorded Patient Food Writer Expl anation ADVANCE DIRECTIVE 12/03/2022 6:07 AM Power of Household Appliance Repairer-Medical * Full Code (Latest Code Status on File) Date Activated Date Inactivated Comments 12/03/2022 12:36 PM 12/07/2022 9:43 PM * Full Code Date Activated Date Inactivated Comments 11/21/2020 1:28 PM 11/26/2020 7:51 PM * Full Code Date Activated Date Inactivated Comments 11/09/2020 10:21 PM 11/15/2020 7:03 PM * Full Code Date Activated Date Inactivated Comments 11/08/2020 8:26 PM 11/09/2020 10:21 PM Care Teams Alterations Sewer Relationship Specialty Start Date End Date Figueroa Patel MD [address] [place] [address] PCP - General Internal Medicine 02/11/24 Alexa Medrano MD [address] [place] [address] 11/08/20 Miscellaneous, Not In File 11/15/20
--- OUTSIDE RECORDS SUMMARY | 2025-04-04 06:34 | XMS_ITS ---
Author Organization [facility] Address [address] [place] [id number] Care Team Providers Care Health Information Management Director Name Role Phone Alexa Medrano MD Unavailable [phone] Miscellaneous, Not In File Unavailable Unava ilable [...] also had drainage. She lives in a intermediate and she is not sure if she [...] and sent with patient to return to [facility]. If CVC unable to be removed at [facility] they should call ID clinic so we can arrange for IR removal - No need for group home suppression as all hardware was removed in [...] (11/08/2020): Added automatically from request for surgery [id number] Anemia of chronic renal failure 04/26/2019 Malignant neoplasm of upper- outer quadrant of right breast in female, estrogen receptor positive 04/25/2018 Chronic diastolic congestive heart failure 07/25 Other insomnia 07/25/2017 Post-menopausal 12/18/2016 History of breast cancer 06/20/2015 Osteopenia 06/20/2015 Current Treatment and Therapy Plans No current plan information found. Past Treatment and Therapy Plans No past plan information found. Lifetime Dose Tracking * Chemical Lifetime Dose Automatic Entry Manual Entr y Fluoro Time 49.03 minutes 49.03 minutes 0 minutes Air kerma at the reference point (Ka,r) 66.63 mGy 6 6.63 mGy 0 mGy DLP 521 mGycm 521 mGycm 0 mGycm
== END 2025-04-04 06:59 | disposition hospice, home (50) ==
PROVIDERS: Emergency Provider Student in an Organized Health Care Education/Training Program
DX: R50.9 Fever, unspecified (principal); Z51.5 Encounter for palliative care; E11.22 Type 2 diabetes mellitus with diabetic chronic kidney disease; J44.9 Chronic obstructive pulmonary disease, unspecified; Z79.4 Long term (current) use of insulin; I50.9 Heart failure, unspecified; N18.30 Chronic kidney disease, stage 3 unspecified; Z86.73 Personal history of transient ischemic attack (TIA), and cerebral infarction without residual deficits; G47.33 Obstructive sleep apnea (adult) (pediatric); Z86.718 Personal history of other venous thrombosis and embolism
CPT/HCPCS: 82948; 99283; A9270